=== PATIENT | male | born 1950 | race Caucasian/White ===

== ENCOUNTER 2019-02-09 15:35 | Inpatient (IN) | payer MEDICARE, SELFPAY | END 2019-02-10 11:38 | disposition home or self-care (01) | DRG 309 | PROVIDERS: Admitting Provider Internal Medicine; Family Provider Family Medicine; Visit Provider Internal Medicine | DX: I48.0 Paroxysmal atrial fibrillation (principal); I50.30 Unspecified diastolic (congestive) heart failure; I25.10 Atherosclerotic heart disease of native coronary artery without angina pectoris; E78.5 Hyperlipidemia, unspecified; I11.0 Hypertensive heart disease with heart failure; Z79.82 Long term (current) use of aspirin; Z95.5 Presence of coronary angioplasty implant and graft; G25.81 Restless legs syndrome ==

== ENCOUNTER 2019-02-11 05:56 | Outpatient (RCR) | payer MEDICARE, SELFPAY | END 2019-02-11 23:59 | disposition home or self-care (01) | LOC: ONCMED 05:56 | PROVIDERS: Family Provider Family Medicine; Visit Provider Internal Medicine Hematology & Oncology | DX: E83.110 Hereditary hemochromatosis (principal); I48.91 Unspecified atrial fibrillation; Z79.82 Long term (current) use of aspirin; Z79.01 Long term (current) use of anticoagulants | CPT/HCPCS: 99214 ==

== ENCOUNTER 2019-02-16 07:15 | Inpatient (IN) | payer MEDICARE, SELFPAY ==
--- NOTE | 2019-02-17 | ECG_ITS ---
Measurements Intervals [place] Rate: 101 P: [place]: 0 QRS: 1 QRSD: 86 T: -18 QT: 339 QTc: 441 ATRIAL FIBRILLATION WITH RAPID VENTRICULAR RESPONSE ABNORMAL RHYTHM ECG Compared to ECG 02/16/2019 10:35:42 No significant changes Electronically Signed On 02-17-2019 14:37:59 ROTATING EQUIPMENT SPECIALIST by Cindi Gonzalez M.D. [id number]
[2019-02-17 04:00] VITALS: BP 101/67; PULSE 100; RESP 12
[2019-02-17 04:44] LABS: Alanine Aminotransferase 32 U/L (0-41); Alkaline Phosphatase 76 IU/L (40-130); Anion Gap 16.5 (5-19); Aspartate Amino Transferase 23 U/L (0-40); Blood Urea Nitrogen 20 mg/dL (8-23); Calcium 11.8 mg/Dl (8.8-10.2); Carbon Dioxide 22 mmol/L (22-29); Chloride 104 mmol/L (98-107); Globulin 1.5 g/dL (1.3-4.6); Glomerular Filtration Rate 66.4 mL/min (90-130); Glucose 97 mg/dL (74-106); Potassium 4.5 mmol/L (3.5-5.1); Sodium 138 mmol/L (136-145); Total Bilirubin 0.9 mg/dL (0.15-1.2); Total Protein 6.5 g/dL (6.6-8.7)
[2019-02-17 08:00] VITALS: BP 106/79; PULSE 115; RESP 15; O2SAT 94
[2019-02-17] MEDS: sotalol 80 mg Tablet PO ×2 (08:58→17:06)
[2019-02-17] MEDS: rivaroxaban 10 mg Tablet 20 MG PO (08:58)
[2019-02-17] MEDS: dilTIAZem 30 mg Tablet PO ×2 (08:58→17:03)
[2019-02-17] MEDS: aspirin 81 mg EC Tablet PO (08:58)
--- NOTE | 2019-02-17 09:12 | PM.PN ---
Subjective Subjective: Interval history: Last 24 hours: No acute events. Telemetry was reviewed patient remains in atrial fibrillation with intermittent rapid ventricular response. Patient complains of shortness of breath on minimal exertion denies having any chest discomfort. Vitals/I&O/Wt Last Vital Signs Pulse 100 02/17/19 04:00 Resp 12 02/17/19 04:00 BP 101/67 02/17/19 04:00 Weight last 48 hrs Weight 250 lb Physical Exam Const: COMMON NORMALS: no apparent distress, oriented x3 and alert GENERAL APPEARANCE: cooperative, comfortable, well kempt and well hydrated HENMT: COMMON NORMALS: normocephalic, head/scalp atraumatic, hearing grossly normal bilaterally, external ears normal, external nose normal and moist oral mucous membranes HEAD & SCALP: normocephalic and atraumatic FACE & SINUS: normal facial exam and sinuses nontender; no facial edema NOSE: external nose normal; no epistaxis EXTERNAL EAR: Yes external ears normal MOUTH: lip normal and tongue normal; no drooling and no malodorous breath TEETH & GINGIVA: no caries Eye: COMMON NORMALS: PERRL, EOMs intact bilaterally, conjunctivae normal and no scleral icterus GENERAL EYE: normal appearance of both eyes ALIGNMENT: Yes alignment normal PERIORBITAL: periorbital findings normal EYELID: eyelids normal CONJUNCTIVA: Yes conjunctivae normal SCLERA: sclerae normal PUPIL: Yes PERRL Neck/C-Spine: COMMON NORMALS: no lymphadenopathy, supple and no JVD GENERAL: Yes normal visual inspection, Yes trachea midline and No mass CAROTIDS: Yes normal carotid upstroke CERVICAL SPINE: Yes cervical ROM normal Lymph: LYMPHATIC: no lymphadenopathy noted Chest: COMMONS NORMALS: inspection of chest normal and palpation of chest normal CHEST: Yes symmetrical chest wall rise, No mass, No tenderness, No scars and No rash BREAST/AXILLA INSPECTION: Yes normal inspection of the axillae Resp: COMMON NORMALS: clear to auscultation bilaterally and percussion normal EFFORT & INSPECTION: Yes able to speak in complete sentences, No tachypneic, No respiratory distress, No pursed lip breathing, No labored and No actively coughing AUSCULTATION: clear to auscultation bilaterally, no crackles, no rales, no rhonchi, no wheezes and vesicular breath sounds PERCUSSION: percussion normal Cardio: COMMON NORMALS: no JVD, regular rate, regular rhythm, S1 normal heart sound, S2 normal heart sound and peripheral pulses 2+ throughout PALPATION: normal PMI RATE: regular rate RHYTHM: regular rhythm HEART SOUNDS: S1 normal, S2 normal, no click, no gallops and no murmurs BRUITS: no abdominal aortic bruits, no carotid bruits, no femoral bruits and no renal bruits PERIPHERAL PULSES: pulses 2+ throughout, radial pulses present, femoral pulses present, posterior tibial pulses present and dorsalis pedis pulses present GI: COMMON NORMALS: soft to palpation PALPATION: Yes soft, No tender, No guarding and No rigid PERCUSSION: tympanic to percussion Extremity: GENERAL: No calf tenderness, No clubbing, No cyanosis, Yes edema and No pallor Neuro: COMMON NORMALS: oriented x3, CN's II-XII intact bilaterally and no focal motor deficits SENSORIUM/ORIENTATION: Yes alert Psych: COMMON NORMALS: thought process normal and speech normal APPEARANCE: Yes well kempt SPEECH: Yes normal speech MOOD & AFFECT: Yes euthymic mood THOUGHT PROCESS: normal thought process THOUGHT CONTENT: Yes normal thought content Skin: HAIR: normal NAILS: normal and no clubbing Data Labs: Other Labs: All Labs last 24 hrs except CBC/BMP 02/16/19 02/17/19 11:13 03:25 GFR Calculation 95.8 66.4 L Random Glucose 88 Calcium 11.6 H 11.8 H Magnesium 2.3 Total Bilirubin 0.9 AST 23 ALT 32 Alkaline Phosphata se 76 Total Protein 6.5 L Albumin 5.0 Globulin 1.5 NT-Pro-B Natriuret Pep 316 H A&P Assessment and plan (1) Atrial fibrillation with RVR: Fibrillation with rapid regular response. Patient is symptomatic from it. Been started on sotalol 80 mg twice a day yesterday. Last EKG with atrial fibrillation and heart rate of 101 bpm QT 329/QTc 441 ms. Plan to increase the dose of sotalol from 80 mg in morning and 120 mg in evening depending on how he does today. -Continue low-dose Cardizem and Xarelto. -Plan for cardioversion tomorrow afternoon. Status: Acute Code(s): I48.91 - Unspecified atrial fibrillation (2) Hypertension: Blood pressure has been running low normal. Continue current medications. Status: Acute Code(s): I10 - Essential (primary) hypertension (3) CAD (coronary artery disease): Stable. Continue aspirin and statin. Status: Acute Code(s): I25.10 - Atherosclerotic heart disease of [place] coronary artery without angina pectoris (4) Hyperlipidemia: Continue statin. Status: Acute Code(s): E78.5 - Hyperlipidemia, unspecified Attestations Medical Necessity Statement*: Patient needs hospital stay for symptomatic atrial fibrillation for sotalol therapy monitoring. Coding Level of Care Code Acute Precision Machine Operator for [facility] Fwd Exam Problem Focused Diagnoses Atrial fibrillation with RVR I48.91 Hypertension I10 CAD (coronary artery disease) I25.10 Hyperlipidemia E78.5
[2019-02-17 10:00] VITALS: BMI 36.1
--- NOTE | 2019-02-17 11:00 | ECG_ITS ---
Measurements Intervals [place] Rate: 83 P: [place]: 0 QRS: 6 QRSD: 94 T: -7 QT: 371 QTc: 438 ATRIAL FIBRILLATION ABNORMAL RHYTHM ECG Compared to ECG 02/16/2019 10:35:42 No significant changes Electronically Signed On 02-17-2019 14:34:06 MACHINE SHOP APPRENTICE by Cindi Gonzalez M.D. [id number]
--- NOTE | 2019-02-17 11:55 | PC.CHAP ---
Addendum entered by Jose Mendoza 02/18/19 10:27: Patient visited by finisher brushkong Gu Original Note: Pastoral Care Encounter/Spiritual Assessment Type of Contact [] Declined finisher brush visit [] Patient/Family/Request visit [] Outpatient visit [] Follow-up visit [] Physician referral [] Code/Alert [x] Routine visit [] Staff referral [] Actively dying [] Patient sleeping [] Family support [] [] Out of room [] Palliative care [] [] Receiving care in room [] Pre-surgical visit [] Trauma [] Long length of stay [] ICU visit [] Other: Relational/Emotional Strength [x] Patient feels connected with others/family/visitors/staff [] Distress [] Loneliness/isolation [] Abandonment Spirituality of Patient [x] Person of Candy [] Attends Nondenominational of their Candy [x] Believes in Prayer [] Reads Bible or Advent materials [] There are Spiritual issues to be addressed Pit Furnace Operator Interventions [x] Prayer [x] Active listening [x] Non-anxious presence [x] Spiritual/emotional support [] Crisis/trauma care [] Spiritual counseling [] Bereavement support [] Provided bereavement packet [] Provided Bible/devotional materials [] Provided toy/stuffed animal, coloring book to patient or family member [x] Completed spiritual assessment [] Provided Communion [] Anointing/Star [] Salvation [] Other: Impact on Illness or Injury [] Angry [] Fearful [] Anxious [] Often cries [] Exhaustion [] Unable to work [] Unable to attend jew [] Unable to walk/stand [] Unable to read [] Unable to drive [] Unable to eat/drink [] Unable to sleep [] Unable to be with family [x] Other: frequent visits do to illness Summary Met with same illness Time spent with patient 10 minutes
[2019-02-17 12:00] VITALS: BP 129/93; PULSE 97; RESP 16; TEMP 36.6; O2SAT 94
[2019-02-17 16:00] VITALS: BP 137/93; PULSE 108; RESP 20; TEMP 36.4; O2SAT 94
--- NOTE | 2019-02-17 19:06 | ECG_ITS ---
Measurements Intervals [place] Rate: 104 P: [place]: 0 QRS: 14 QRSD: 88 T: 3 QT: 351 QTc: 464 ATRIAL FIBRILLATION WITH RAPID VENTRICULAR RESPONSE ABNORMAL RHYTHM ECG Compared to ECG 02/17/2019 11:13:57 No significant changes Electronically Signed On 02-18-2019 6:44:42 BUTTON SEWER by Cindi Gonzalez M.D. [id number]
[2019-02-17 19:42] VITALS: BP 134/91; PULSE 109; RESP 23; TEMP 36.5; O2SAT 93
--- NOTE | 2019-02-17 19:47 | PC.NURSE ---
Patient complaints of IV irritating in the right A/C, flushed IV, good blood return, retaped site, and applied new [place]. Call light within reach. Care Continued.
[2019-02-17] MEDS: pramipexole 0.25 mg Tablet PO (20:28)
[2019-02-17] MEDS: atorvastatin 40 mg Tablet PO (20:29)
[2019-02-18] VITALS (25 sets, daily range): BP systolic 90–127; BP diastolic 55–94; PULSE 56–117; RESP 11–27; TEMP 36.3–36.8; O2SAT 91–97
[2019-02-18] MEDS: dilTIAZem 30 mg Tablet PO (03:07)
[2019-02-18 04:35] LABS: Anion Gap 14.3 (5-19); Blood Urea Nitrogen 23 mg/dL (8-23); Calcium 11.9 mg/Dl (8.8-10.2); Carbon Dioxide 21 mmol/L (22-29); Chloride 101 mmol/L (98-107); Glomerular Filtration Rate 74.1 mL/min (90-130); Potassium 4.3 mmol/L (3.5-5.1); Sodium 132 mmol/L (136-145)
[2019-02-18 05:18] LABS: Glucose 104 mg/dL (74-106)
--- NOTE | 2019-02-18 09:48 | PM.PN ---
Subjective Subjective: Interval history: Last 24 hours: No acute events. Telemetry was reviewed patient remains in atrial fibrillation with intermittent rapid ventricular response. Patient complains of shortness of breath . Medications: Reviewed: Yes Vitals/I&O/Wt Last Vital Signs Temp 97.4 F L 02/18/19 09:24 Pulse 107 H 02/18/19 09:24 Resp 16 02/18/19 09:24 BP 125/94 02/18/19 09:24 Pulse Ox 94 02/18/19 09:24 02/17/19 02/18/19 02/18/19 22:59 06:59 14:59 Intake Total 720 / 1200 Balance 720 / 1200 Weight last 48 hrs Weight 250 lb Weight 251 lb 6 oz Weight 250 lb Physical Exam Const: COMMON NORMALS: no apparent distress, oriented x3 and alert GENERAL APPEARANCE: cooperative, comfortable and well kempt HENMT: COMMON NORMALS: external ears normal NOSE: no epistaxis EXTERNAL EAR: Yes external ears normal Eye: COMMON NORMALS: PERRL, EOMs intact bilaterally, conjunctivae normal and no scleral icterus GENERAL EYE: normal appearance of both eyes CONJUNCTIVA: Yes conjunctivae normal SCLERA: sclerae normal PUPIL: Yes PERRL Neck/C-Spine: COMMON NORMALS: supple and no JVD GENERAL: Yes normal visual inspection, Yes trachea midline and No mass CAROTIDS: Yes normal carotid upstroke CERVICAL SPINE: Yes cervical ROM normal Chest: COMMONS NORMALS: inspection of chest normal and palpation of chest normal CHEST: Yes symmetrical chest wall rise, No mass, No tenderness, No scars and No rash Resp: COMMON NORMALS: clear to auscultation bilaterally EFFORT & INSPECTION: Yes able to speak in complete sentences, No pursed lip breathing, No labored and No actively coughing AUSCULTATION: clear to auscultation bilaterally, no crackles, no rales, no rhonchi, no wheezes and vesicular breath sounds Cardio: COMMON NORMALS: no JVD and peripheral pulses 2+ throughout PALPATION: normal PMI RATE: other (Irregularly irregular) HEART SOUNDS: no click, no gallops, no murmurs and other (S1 and S2 of variable intensity) PERIPHERAL PULSES: pulses 2+ throughout, posterior tibial pulses present and dorsalis pedis pulses present Extremity: GENERAL: No calf tenderness, No clubbing, No cyanosis, Yes edema and No pallor Neuro: COMMON NORMALS: oriented x3 SENSORIUM/ORIENTATION: Yes alert Psych: COMMON NORMALS: thought process normal and speech normal APPEARANCE: Yes well kempt SPEECH: Yes normal speech MOOD & AFFECT: Yes euthymic mood THOUGHT PROCESS: normal thought process THOUGHT CONTENT: Yes normal thought content A&P Assessment and plan (1) Atrial fibrillation with RVR: Fibrillation with rapid regular response. Patient is symptomatic from it. He was started on sotalol 80 mg twice a day on . -He underwent successful cardioversion methodist of normal sinus rhythm after left atrial and left atrial appendage thrombus was ruled out by FILIPE. -Continue Xarelto and sotalol. -Possible discharge tomorrow. Status: Acute Code(s): I48.91 - Unspecified atrial fibrillation (2) Dyspnea: Patient received Lasix 20 mg IV x1 this morning. Pt. slightly volume overloaded in setting of A. fib with RVR and sotalol therapy -Possibly start on Lasix 20 mg p.o. starting tomorrow. Status: Acute Code(s): R06.00 - Dyspnea, unspecified (3) Hypertension: Blood pressure has been running low normal. Continue current medications. Status: Acute Code(s): I10 - Essential (primary) hypertension (4) CAD (coronary artery disease): Stable. Continue aspirin and statin. Status: Acute Code(s): I25.10 - Atherosclerotic heart disease of [place] coronary artery without angina pectoris (5) Hyperlipidemia: Continue statin. Status: Acute Code(s): E78.5 - Hyperlipidemia, unspecified Attestations Medical Necessity Statement*: Patient needs to stay in the hospital because of symptomatic atrial fibrillation and for sotalol therapy monitoring. Time Spent in Patient Care: Greater than 35 minutes (>than 50% of time spent in counselling and/or direct pt care on unit). Coding Level of Care Code Acute Learning Solutions Specialist for Sergio Vic[facility] Diagnoses Atrial fibrillation with RVR I48.91 Dyspnea R06.00 Hypertension I10 CAD (coronary artery disease) I25.10 Hyperlipidemia E78.5
[2019-02-18] MEDS: aspirin 81 mg EC Tablet PO (09:58)
[2019-02-18] MEDS: sotalol 80 mg Tablet PO ×2 (09:58→17:21)
[2019-02-18] MEDS: rivaroxaban 10 mg Tablet 20 MG PO (09:58)
[2019-02-18] MEDS: FUROsemide 10 mg/mL SDV 2mL 20 MG IVP (09:58)
--- NOTE | 2019-02-18 10:32 | ANES.PREANES ---
Pre-Anesthetic Assessment Pre-Anesthetic Assessment: Height/Weight: Height 1.78 m Weight 113.398 kg Temp Pulse Resp BP Pulse Ox 97.4 F L 107 H 16 125/94 94 02/18/19 09:24 02/18/19 09:24 02/18/19 09:24 02/18/19 09:24 02/18/19 09:24 Preop Diagnosis: aFIB WITH rvr Proposed Procedure: Operation Date: 02/18/19 11:00 Proposed Procedures p FILIPE (Transesophageal Echocardiogram)(Not Applicable) - Cindi Gonzalez MD s Cardioversion(Not Applicable) - Cindi Gonzalez MD Was Beta Kath taken within 24 hours: N/A Last intake: 0 food/drink Social: Social History: No alcohol and No tobacco Exam: Pre-Anes Outpt Exam: alert, oriented x 3 and clear to auscultation bilaterally Additional Exam Findings (including area of procedure): Irregular rhythm Airway: Submandibular: WNL Cervical ROM: WNL MP: 2 Additional comments: full Pulmonary: Pulmonary: None reported CV/HEM: CV/HEM: Afib, CAD, HTN and Palp Comments: 2011 denies any CP recently. Some SOB and feels heart racing : : None reported Hepatic: Hepatic: None reported GI: GI: GERD Comments: occasional Musc/skel: Musc/skel: None reported Neuropsych: Neuropsych: None reported Anesthetic Plan: ASA status: III Anesthesia: MAC Risk of > 500 ml blood loss (7ml/kg in children): No Meds/Allergies Current Medications: Current Medications Generic Name Dose Route Start Last Admin Trade Name Freq PRN Reason Stop Dose Admin Aspirin 81 mg 02/17/19 09:00 02/18/19 09:58 Aspirin Ec PO 81 mg DAILY ADRIENNE Administration Atorvastatin Calci um 40 mg 02/17/19 21:00 02/17/19 20:29 Lipitor PO 40 mg BEDTIME ADRIENNE Administration Diltiazem HCl 30 mg 02/17/19 00:00 02/18/19 03:07 Cardizem PO 30 mg TID PRN Administration HR> 120 BPM Diltiazem HCl 30 mg 02/17/19 09:00 02/17/19 17:03 Cardizem PO 30 mg BID ADRIENNE Administration Pramipexole Dihydr ochloride 0.25 mg 02/17/19 21:00 02/17/19 20:28 Mirapex PO 0.25 mg BEDTIME ADRIENNE Administration Sotalol HCl 80 mg 02/17/19 09:00 02/18/19 09:58 Betapace PO 80 mg BID ADRIENNE Administration PFSH Anesthesia PFSH: Medical History (Updated 02/17/19 @ 09:18 by Cindi Gonzalez MD) CAD (coronary artery disease) (Acute) Hyperlipidemia (Acute) Hypertension (Acute) Restless legs syndrome (RLS) (Acute) Social History (Updated 02/16/19 @ 16:11 by Maya Xiao) Smoking and tobacco status: never smoked Data Anesthesia Labs: Other Labs: Laboratory Results - last 48 hr 02/16/19 02/17/19 02/18/19 11:13 03:25 03:08 Sodium 138 138 132 L Potassium 4.7 4.5 4.3 Chloride 104 104 101 Carbon Dioxide 21 L 22 21 L Anion Gap 17.7 16.5 14.3 BUN 14 20 23 Creatinine 0.8 1.1 1.0 GFR Calculation 95.8 66.4 L 74.1 L Glucose 97 104 Random Glucose 88 Calcium 11.6 H 11.8 H 11.9 H Magnesium 2.3 Total Bilirubin 0.9 AST 23 ALT 32 Alkaline Phosphata se 76 Total Protein 6.5 L Albumin 5.0 Globulin 1.5 NT-Pro-B Natriuret Pep 316 H Cardiac Studies: No Data to Display
--- NOTE | 2019-02-18 11:00 | USCV_ITS ---
Lavon Boone Age: 68 Gender: M : 1950 Exam Date: 02/18/2019 10:55 Ordering Phys: Cindi Gonzalez MD ([email or web address]) Technologist: Tanisha Gibbons Exam Location: [facility] – [place] Indication: AFIB WITHPOST CARDIO BP: / HR: Rhythm: Sinus Technical Quality: Good MEASUREMENTS (Male / Female) Normal Values Medications As per anesthesia. Complications No procedural complications. Proc. Components Multiple images were obtained at mid esophageal and gastric levels. FINDINGS Left Ventricle Upper normal left ventricular size. Low normal left ventricular systolic function. Left ventricular ejection fraction is estimated at 50-55%. No regional wall motion abnormalities. Right Ventricle Normal right ventricular size and systolic function. Right Atrium Mildly increased right atrial size. Left Atrium Mildly increased left atrial size. Smoke noted in left atrium. LA Appendage Normal left atrial appendage. Smoke noted in left atrial appendage. IA Septum Normal interatrial septum. No patent foramen ovale. No evidence for an atrial septal defect. Mitral Valve Structurally normal mitral valve. No mitral valve stenosis. Mild mitral valve regurgitation. Aortic Valve Structurally normal trileaflet aortic valve. No aortic valve stenosis. No aortic valve regurgitation. Tricuspid Valve Structurally normal tricuspid valve. No tricuspid valve regurgitation. Mild tricuspid valve regurgitation. Pulmonic Valve Structurally normal pulmonic valve. No pulmonary valve stenosis. Trace pulmonary valve regurgitation. Pericardium No pericardial effusion. Aorta Normal size aortic root and proximal ascending aorta. No aortic aneurysm, dilation or dissection. 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 CONCLUSIONS 1. Upper normal left ventricular size. Low normal left ventricular systolic function. Left ventricular ejection fraction is estimated at 50-55%. No regional wall motion abnormalities. 2. Normal right ventricular size and systolic function. 3. Mild biatrial enlargement. 4. Mild mitral and tricuspid valve regurgitation. 5. No left atrial or left atrial appendage thrombus. 6. 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 Cindi Gonzalez MD (Electronically Signed) Final Date: 19 February 2019 14:35 S
--- NOTE | 2019-02-18 12:01 | PC.NURSE ---
11:37 DR Gonzalez at bed side for planned procedure Cardioversion with FILIPE 11:39 Time out performed patient stated name, date of and procedure verbalized 11:40 anesthesia administered by CHARMAINE Vera 11:42 Patient confirmed asleep under anesthesia By DIGITAL LEARNING PLATFORMS MANAGER 11:[address] Gonzalez assisted by Ultra sound Tech Tanisha 11:47 Bubbles introduced via IV By Eduardo Tran RN 11:51 FILIPE complete OK to proceed with cardioversion per Dr. Gonzalez 11:52 Defibrillator set to sync and charged to 120 Joules 11:53 Shock delivered -normal sinus rhythm noted by Dr. Gonzalez, HR 61 12:15-12:20 patient recovered by patient care nurse Eduardo Tran RN and CHARMAINE Vera
--- NOTE | 2019-02-18 12:20 | P.PCN_ITS ---
Procedure/Consent Time out: Time Out Performed: Yes Consent: Consent for Procedure: Consent obtained from patient, Risks & Benefits reviewed and Agrees to proceed with procedure Procedure Narrative: FILIPE Procedure note Indication: Symptomatic atrial fibrillation Sedation: Propofol by anesthesia Procedure was explained to the patient in detail and informed consent was obtained. After achieving adequate sedation, the probe was inserted on first attempt. No blood on the probe post procedure. Prelim report: No left atrial or left atrial appendage mass or thrombus visualized. No ASD or PFO identified. Full report to follow. Cardioversion procedure note. Indication: Symptomatic atrial fibrillation Anticoagulation: Xarelto Sedation: Propofol by anesthesia After ruling out left atrial or left atrial appendage thrombus, and was made to proceed with cardioversion. He received 120 J of synchronized biphasic shock ?1 with confucianist of normal sinus rhythm. Patient tolerated the procedure well. Recovery: In CSU Patient tolerated the procedure well. Acute Procedures Epistaxis Control: Time out performed: Yes
--- NOTE | 2019-02-18 12:39 | ECG_ITS ---
Measurements Intervals [place] Rate: 54 P: 48 [place]: 224 QRS: 11 QRSD: 90 T: -8 QT: 452 QTc: 432 SINUS BRADYCARDIA WITH SINUS ARRHYTHMIA WITH FIRST DEGREE AV BLOCK Compared to ECG 02/18/2019 00:40:24 First degree AV block now present Atrial fibrillation no longer present Electronically Signed On 02-18-2019 17:10:58 TAIL WORKER by Cindi Gonzalez M.D. [id number]
[2019-02-18] MEDS: atorvastatin 40 mg Tablet PO (20:40)
[2019-02-18] MEDS: pramipexole 0.25 mg Tablet PO (20:40)
[2019-02-18 21:48] LABS: Alanine Aminotransferase 50 U/L (0-41); Albumin Level 4.7 g/dL (3.5-5.2); Alkaline Phosphatase 93 IU/L (40-130); Aspartate Amino Transferase 43 U/L (0-40); Magnesium 2.7 mg/dL (1.7-2.3); NT Pro B Type Natriuretic Pept 336 pg/mL (0-125); Total Bilirubin 0.7 mg/dL (0.15-1.2); Total Protein 7.7 g/dL (6.6-8.7)
[2019-02-19] VITALS: BP 103/55; PULSE 65; RESP 23
[2019-02-19 04:00] VITALS: BP 103/70; PULSE 56; PULSE 723; RESP 23; RESP 26; TEMP 37; O2SAT 92
[2019-02-19 07:51] VITALS: BP 111/73; PULSE 62; PULSE 65; RESP 17; TEMP 36.8; O2SAT 96
[2019-02-19 08:00] VITALS: PULSE 73; RESP 26
[2019-02-19] MEDS: rivaroxaban 10 mg Tablet 20 MG PO (08:07)
[2019-02-19] MEDS: sotalol 80 mg Tablet PO (08:07)
[2019-02-19] MEDS: aspirin 81 mg EC Tablet PO (08:07)
[2019-02-19] MEDS: FUROsemide 20 mg Tablet PO (08:08)
--- NOTE | 2019-02-19 09:56 | PC.SOCIAL ---
IMM Update Pg 2 of IMM given and explained to patient who voiced understanding. Signed/dated/timed and placed in chart. Copy provided to patient.
--- NOTE | 2019-02-19 10:27 | PM.DCS ---
Discharge Providers Date of Admission: 02/16/19 07:15 Date of Discharge: 02/19/19 Attending Provider at Admission: Cindi Gonzalez Attending Provider at Discharge: Cindi Gonzalez Primary Care Provider: Elizabeth Xiao Diagnoses at Discharge Discharge Diagnosis (1) Atrial fibrillation with RVR: Status: Acute Problem details: Patient underwent transesophageal echocardiogram and cardioversion x1 yesterday with voodoo of sinus rhythm. Telemetry was reviewed overnight and patient remained in sinus rhythm or sinus bradycardia overnight. -Plan to continue with sotalol 80 mg twice a day and Xarelto. -EKG this morning showed sinus bradycardia with sinus arrhythmia and first-degree AV block. Minimal voltage criteria for LVH. DC interval 215 ms, QRS duration 88 ms, QT/QTc 416/408 ms. (2) Dyspnea: Status: Acute Problem details: -Dyspnea improved since cardioversion and after Lasix yesterday. -Continue Lasix 20 mg daily. (3) Hypertension: Status: Acute Problem details: Blood pressure well controlled. Continue current medications. (4) CAD (coronary artery disease): Status: Acute Problem details: Stable. Continue aspirin and statin. (5) Hyperlipidemia: Status: Acute Problem details: Continue statin. Reason for Visit Reason for Visit: Reason For Visit: Afib Hospital Course Hospital Course: Patient was hospitalized for symptomatic atrial fibrillation for sotalol initiation and monitoring. Patient tolerated sotalol fairly. He developed dyspnea with mild volume overload that has responded well to Lasix. He was successfully cardioverted yesterday and states that he feels well today. Physical Exam Const: COMMON NORMALS: no apparent distress, oriented x3 and alert GENERAL APPEARANCE: cooperative, comfortable, well kempt and well hydrated HENMT: COMMON NORMALS: hearing grossly normal bilaterally, external ears normal and moist oral mucous membranes FACE & SINUS: normal facial exam EXTERNAL EAR: Yes external ears normal Eye: COMMON NORMALS: EOMs intact bilaterally and no scleral icterus GENERAL EYE: normal appearance of both eyes Neck/C-Spine: COMMON NORMALS: no lymphadenopathy, supple and no JVD GENERAL: Yes normal visual inspection and Yes trachea midline Chest: COMMONS NORMALS: inspection of chest normal and palpation of chest normal CHEST: Yes symmetrical chest wall rise and No tenderness Resp: COMMON NORMALS: clear to auscultation bilaterally EFFORT & INSPECTION: Yes able to speak in complete sentences, No tachypneic, No respiratory distress, No pursed lip breathing, No labored and No actively coughing AUSCULTATION: clear to auscultation bilaterally, no crackles, no rales, no rhonchi and no wheezes Cardio: COMMON NORMALS: no JVD, regular rate, regular rhythm, S1 normal heart sound, S2 normal heart sound and peripheral pulses 2+ throughout PALPATION: normal PMI RATE: regular rate RHYTHM: regular rhythm HEART SOUNDS: S1 normal, S2 normal, no click, no gallops and no murmurs BRUITS: no carotid bruits PERIPHERAL PULSES: pulses 2+ throughout, radial pulses present, posterior tibial pulses present and dorsalis pedis pulses present Extremity: GENERAL: No clubbing, No cyanosis, Yes edema and No pallor Neuro: COMMON NORMALS: oriented x3, CN's II-XII intact bilaterally and no focal motor deficits SENSORIUM/ORIENTATION: Yes alert Psych: COMMON NORMALS: thought process normal and speech normal APPEARANCE: Yes well kempt SPEECH: Yes normal speech MOOD & AFFECT: Yes euthymic mood THOUGHT PROCESS: normal thought process THOUGHT CONTENT: Yes normal thought content Discharge Data Data Completed and Pending: Pending at discharge Category Date Time Status CV echo transesop hageal [address] Routi ne Ultrasound 02/18/19 11:00 Taken Labs from last 24 hours 02/18/19 03:08 Magnesium 2.7 H Total Bilirubin 0.7 Direct Bilirubin 0.20 AST 43 H ALT 50 H Alkaline Phosphata se 93 NT-Pro-B Natriuret Pep 336 H Total Protein 7.7 Albumin 4.7 Globulin 3.0 Lab Results 02/16/19 02/17/19 02/18/19 Range/Units 11:13 03:25 03:08 Sodium 138 138 132 L (136-145) mmol/L Potassium 4.7 4.5 4.3 (3.5-5.1) mmol/L Chloride 104 104 101 (98-107) mmol/L Carbon Dioxide 21 L 22 21 L (22-29) mmol/L Anion Gap 17.7 16.5 14.3 (5-19) BUN 14 20 23 (8.0-23) mg/dL Creatinine 0.8 1.1 1.0 (0.7-1.2) mg/dL GFR Calculation 95.8 66.4 L 74.1 L (90-130) mL/min Glucose 97 104 (74-106) mg/dL Random Glucose 88 (65-115) mg/dl Calcium 11.6 H 11.8 H 11.9 H (8.8-10.2) mg/dL Magnesium 2.3 (1.7-2.3) mg/dL Total Bilirubin 0.9 (0.15-1.2) mg/dL Direct Bilirubin (0.00-0.30) mg/d L AST 23 (0-40) U/L ALT 32 (0-41) U/L Alkaline Phosphata se 76 (40-130) IU/L Total Protein 6.5 L (6.6-8.7) g/dL Albumin 5.0 (3.5-5.2) g/dL Globulin 1.5 (1.3-4.6) g/dL NT-Pro-B Natriuret Pep 316 H (0-125) pg/mL 02/18/19 Range/Units 03:08 Sodium (136-145) mmol/L Potassium (3.5-5.1) mmol/L Chloride (98-107) mmol/L Carbon Dioxide (22-29) mmol/L Anion Gap (5-19) BUN (8.0-23) mg/dL Creatinine (0.7-1.2) mg/dL GFR Calculation (90-130) mL/min Glucose (74-106) mg/dL Random Glucose (65-115) mg/dl Calcium (8.8-10.2) mg/dL Magnesium 2.7 H (1.7-2.3) mg/dL Total Bilirubin 0.7 (0.15-1.2) mg/dL Direct Bilirubin 0.20 (0.00-0.30) mg/d L AST 43 H (0-40) U/L ALT 50 H (0-41) U/L Alkaline Phosphata se 93 (40-130) IU/L Total Protein 7.7 (6.6-8.7) g/dL Albumin 4.7 (3.5-5.2) g/dL Globulin 3.0 (1.3-4.6) g/dL NT-Pro-B Natriuret Pep 336 H (0-125) pg/mL Addt'l Data from Hospital Stay: Intake and Output 02/18/19 02/19/19 02/19/19 22:59 06:59 14:59 Intake Total 240 / 360 360 / 360 Balance 240 / 60 360 / 360 Intake: Oral 240 / 360 360 / 360 Other: # Voids 1 1 # Bowel Movement s 1 1 Vitals: Last Vital Signs Temp 98.2 F 02/19/19 07:51 Pulse 73 02/19/19 08:00 Resp 26 H 02/19/19 08:00 BP 111/73 02/19/19 07:51 Pulse Ox 96 02/19/19 07:51 Discharge Plan Discharge Patient Disposition: Home, Self-Care Condition: Stable Prescriptions: New sotalol 80 mg Tablet 80 mg PO BID 30 Days Qty: 60 RF: 3 aspirin 81 mg Tablet,Delayed Release (Dr/Ec) 81 mg PO DAILY 30 Days Qty: 30 RF: 0 furosemide 20 mg Tablet 20 mg PO DAILY@0800 30 Days Qty: 30 RF: 3 rivaroxaban 20 mg tablet 20 mg PO DAILY 30 Days Qty: 30 RF: 3 Continued simvastatin 40 mg tablet 40 mg PO BEDTIME RF: 0 ropinirole 0.25 mg tablet 0.5 mg PO BEDTIME RF: 0 Discontinued cetirizine 10 mg tablet 10 mg PO BEDTIME RF: 0 diltiazem HCl 240 mg capsule,extended release 24hr 240 mg PO DAILY RF: 0 telmisartan 40 mg tablet 40 mg PO DAILY RF: 0 furosemide 20 mg tablet 10 mg PO DAILY PRN (Reason: Shortness Of Breath) RF: 0 diltiazem HCl [DILT-XR] 180 mg capsule,ext.rel 24h degradable 180 mg PO DAILY RF: 0 Eliquis 5 mg tablet 5 mg PO BID RF: 0 Discharge Orders: Discharge Order (Routine); Ordered 02/19/19 Ordered By: Cindi Gonzalez Other Ambulatory Orders: Basic Metabolic Panel (Routine) Timeframe: 1 Week Facility: [facility] - Location: Lab - Main Lab Ordered By: Cindi Gonzalez ECG nonstress test (Routine) Timeframe: 1 Week Facility: [facility] - Location: Respiratory Therapy Ordered By: Cindi Gonzalez Referrals: Cindi Gonzalez MD [Physician] - (You have a cardiology followup with Dr. Gonzalez at [facility] on April 05 at 1:30pm. Any questions or appointment changes, please call them at [phone]) Discharge Diet: Cardiac Discharge Activity: May return to work/school without restrictions Patient Instructions: Aspirin (By mouth), Sotalol (By mouth), Rivaroxaban (By mouth), Hypertension, Coronary Artery Disease (DC), Atrial Fibrillation (DC), Hyperlipidemia (DC) Activity Restrictions/Additional Instructions: BP/HR log x 2 weeks. -Follow up for EKG and labs in 1 week. Discharge Date/Time: 02/19/19 11:45 Discharge Attestations Time Spent in Discharge Care*: greater than 30 min Specific Discharge Activities: Specific discharge activities: educating patient, educating and/or supporting family/caregiver, documenting/other paperwork and evaluating patient/reviewing data Status at Discharge: Cognitive status at discharge: cognitively intact, Behavioral status at discharge: cooperative, Functional status at discharge: independent ambulation Overall status at discharge: patient is progressing back to baseline Quality Metrics Clinical Quality Measures During this hospital stay, did patient experience: None Coding Level of Care Code Established Pt Acute Utilities Equipment Repairer for Chg Fwd Patient Type Established Exam Problem Focused Medical Decision Making Low Complexity Diagnoses Atrial fibrillation with RVR I48.91 Dyspnea R06.00 Hypertension I10 CAD (coronary artery disease) I25.10 Hyperlipidemia E78.5 Time Spent (min) 45
[2019-02-19 10:57] VITALS: BP 111/73; PULSE 73; RESP 26; O2SAT 94
--- NOTE | 2019-02-19 11:24 | ECG_ITS ---
Measurements Intervals [place] Rate: 57 P: 63 CO: 215 QRS: 4 QRSD: 88 T: 2 QT: 416 QTc: 408 SINUS BRADYCARDIA WITH SINUS ARRHYTHMIA WITH FIRST DEGREE AV BLOCK MINIMAL VOLTAGE CRITERIA FOR LVH, CONSIDER NORMAL VARIANT [MEETS CRITERIA IN ONE O OF: R(aVL), S(V1), R(V5), R(V5/V6)+S(V1)] Compared to ECG 02/18/2019 13:41:28 No significant changes Electronically Signed On 02-19-2019 15:08:33 SHEARING SHED HAND by Margarito Moody M.D. [id number]
== END 2019-02-19 11:45 | disposition home or self-care (01) | DRG 310 ==
PROVIDERS: Admitting Provider Internal Medicine Cardiovascular Disease; Family Provider Family Medicine; PCP Family Medicine; Referring Provider Internal Medicine Cardiovascular Disease; Visit Provider Internal Medicine Cardiovascular Disease
DX: I48.91 Unspecified atrial fibrillation (principal); I10 Essential (primary) hypertension; I25.10 Atherosclerotic heart disease of native coronary artery without angina pectoris; E78.5 Hyperlipidemia, unspecified; E83.119 Hemochromatosis, unspecified; E66.9 Obesity, unspecified; Z68.35 Body mass index [BMI] 35.0-35.9, adult; I44.0 Atrioventricular block, first degree
CPT/HCPCS: 36415; 71045; 71275; 80048; 80076; 83735; 83880; 84484; 85025; 93005; 93312; 93320; 93325; 96374; 99214; 99221; 99284; J1940; J2001; J2250; J2704; J3490; Q9967

== ENCOUNTER → 2019-02-25 15:10 | Outpatient (BNVA) | payer MEDICARE, SELFPAY | PROVIDERS: Family Provider Family Medicine; PCP Family Medicine; Visit Provider Internal Medicine Cardiovascular Disease | DX: I48.91 Unspecified atrial fibrillation (principal) | CPT/HCPCS: 36415; 80048 ==

== ENCOUNTER → 2019-03-08 15:58 | Outpatient (BNVA) | payer MEDICARE, SELFPAY | PROVIDERS: Family Provider Family Medicine; PCP Family Medicine; Referring Provider Family Medicine; Visit Provider Family Medicine | DX: Z01.89 Encounter for other specified special examinations (principal) | CPT/HCPCS: 36415; 80053; 83880; 84443 ==

== ENCOUNTER → 2019-03-15 09:21 | Outpatient (BNVA) | payer MEDICARE, SELFPAY | PROVIDERS: Family Provider Family Medicine; PCP Family Medicine; Visit Provider Internal Medicine Hematology & Oncology | DX: E83.119 Hemochromatosis, unspecified (principal) | CPT/HCPCS: 82728; 85007; 85027 ==

== ENCOUNTER 2019-03-18 09:38 | Outpatient (CLI) | payer MEDICARE, SELFPAY | END 2019-03-18 09:39 | disposition home or self-care (01) | LOC: ONCMED 09:38 | PROVIDERS: Family Provider Family Medicine; PCP Family Medicine; Visit Provider Internal Medicine Hematology & Oncology | DX: E83.110 Hereditary hemochromatosis (principal); I48.91 Unspecified atrial fibrillation; Z79.82 Long term (current) use of aspirin; Z79.01 Long term (current) use of anticoagulants | CPT/HCPCS: G0463 ==

== ENCOUNTER 2019-04-02 10:31 | Day surgery (SDC) | payer MEDICARE, SELFPAY ==
[2019-04-02 11:01] VITALS: BP 165/108; PULSE 79; RESP 18; TEMP 36.7; O2SAT 96; BMI 35.2
--- NOTE | 2019-04-02 11:05 | ANES.PREANE2 ---
Pre-Anesthetic Assessment Pre-Anesthetic Assessment: Height/Weight: Height 1.78 m Preop Diagnosis: aFIB WITH rvr Proposed Procedure: Operation Date: 04/02/19 12:00 Proposed Procedures p Cardioversion(Not Applicable) - Cindi Gonzalez MD Familial anesthetic complications: none Was Beta Kath taken within 24 hours: N/A Last Intake: 23:00 Exam: Pre-Anes Outpt Exam: alert, oriented x 3 and clear to auscultation bilaterally Airway: Submandibular: WNL Cervical ROM: WNL MP: 2 History/ROS: No significant history except as noted Pulmonary: Pulmonary: [place] CV/HEM: CV/HEM: Afib, Arrythmia, CAD, HTN and Palp : : None reported Hepatic: Hepatic: None reported GI: GI: None reported Metabolic: Metabolic: Hyperlipidemia Comments: hemochromatosis (treated) Musc/skel: Musc/skel: None reported Neuropsych: Neuropsych: None reported Anesthetic Plan: ASA status: 3 Anesthesia: Anesthesia Evaluation and MAC Risk of > 500 ml blood loss (7ml/kg in children): No PFSH Anesthesia PFSH: Social History Smoking and tobacco status: never smoked Data Anesthesia Cardiac Studies: No Data to Display
--- NOTE | 2019-04-02 11:10 | ECG_ITS ---
Measurements Intervals [place] Rate: 53 P: 65 GA: 247 QRS: 1 QRSD: 96 T: -6 QT: 472 QTc: 446 SINUS BRADYCARDIA WITH SINUS ARRHYTHMIA WITH FIRST DEGREE AV BLOCK MINIMAL VOLTAGE CRITERIA FOR LVH, CONSIDER NORMAL VARIANT [MEETS CRITERIA IN ONE OF: OF: R(aVL), S(V1), R(V5), R(V5/V6)+S(V1)] Compared to ECG 02/19/2019 11:31:45 No significant changes Electronically Signed On 04-02-2019 20:51:56 SCISSORS GRINDER by Margarito Moody M.D. [id number]
[2019-04-02] MEDS: sodium chloride 0.9% 1,000 ML 30 ML IV (11:47)
--- NOTE | 2019-04-02 12:45 | ECG_ITS ---
Measurements Intervals [place] Rate: 103 P: [place]: 0 QRS: 18 QRSD: 94 T: -34 QT: 362 QTc: 475 ATRIAL FIBRILLATION WITH RAPID VENTRICULAR RESPONSE ABNORMAL RHYTHM ECG INTERPRETATION BASED ON A DEFAULT AGE OF 40 YEARS Compared to ECG 02/19/2019 11:31:45 Sinus bradycardia no longer present Sinus arrhythmia no longer present First degree AV block no longer present Electronically Signed On 04-02-2019 20:47:52 SECURITY FIELD SUPERVISOR by Margarito Moody M.D. [id number]
--- NOTE | 2019-04-02 12:48 | P.HP_ITS ---
Providers/Chief Complaint Primary Care Provider: Elizabeth Xiao MD Chief Complaint: cardioversion History of Present Illness Lavon Boone is a 68 year old male with PMHx of paroxysmal atrial fibrillation. He was maintaining SR on Multaq but was unable to afford it and was switched to sotalol. He failed sotaolol and was started oupatient on Amiodarone. He transiently converted to NSR but went back in atrial fibrillation. He is coming in today electively for cardioversion. Review of Systems Const: Reports: fatigue; Denies: fever or chills ENMT: Denies: throat pain, nasal congestion or nose bleeds Card: Reports: shortness of breath on exertion; Denies: chest pain, shortness of breath when lying down or leg pain with exertion Resp: Reports: shortness of breath; Denies: productive cough, non-productive cough or chest congestion GI: Denies: nausea, vomiting, difficulty swallowing or blood in stool Musc: Denies: back pain, extremity pain or extremity swelling Neuro: Denies: headache, weakness in extremities or lack of coordination Psych: Denies: anxiety or depression Bashir/Lymph: Reports: easy bruising; Denies: petechiae or purpura All/Imm: Denies: throat swelling or tongue swelling Medications/Allergies Home Medications Medication Instructions Recorded Confirmed Last Taken Type aspirin 81 mg PO DAILY 04/02/19 04/02/19 04/01/19 05:00 History pramipexole 0.25 mg PO DAILY 04/02/19 04/02/19 Unknown History Allergies Allergy/AdvReac Type Severity Reaction Status Date / Time hydrocodone Allergy ADR-Abdominal Verified 02/16/19 13:42 Pain meperidine [From Demerol] Allergy Unknown Verified 02/16/19 13:42 PFSH Acute PFSH: Social History Smoking and tobacco status: never smoked Vitals/I&O/Wt Last Vital Signs Temp 98.1 F 04/02/19 11:01 Pulse 79 04/02/19 11:01 Resp 18 04/02/19 11:01 BP 165/108 04/02/19 11:01 Pulse Ox 96 04/02/19 11:01 Weight last 48 hrs Weight 245 lb Physical Exam Const: COMMON NORMALS: no apparent distress, oriented x3 and alert GENERAL APPEARANCE: cooperative, comfortable, well kempt and well hydrated HENMT: COMMON NORMALS: hearing grossly normal bilaterally, external ears normal and moist oral mucous membranes FACE & SINUS: normal facial exam Eye: GENERAL EYE: normal appearance of both eyes Neck/C-Spine: COMMON NORMALS: no JVD GENERAL: Yes normal visual inspection CAROTIDS: Yes normal carotid upstroke Chest: COMMONS NORMALS: inspection of chest normal Resp: COMMON NORMALS: clear to auscultation bilaterally EFFORT & INSPECTION: Yes able to speak in complete sentences and No tachypneic AUSCULTATION: no crackles, no rales, no rhonchi and no wheezes Cardio: COMMON NORMALS: no JVD, regular rate, regular rhythm, S1 normal heart sound, S2 normal heart sound and peripheral pulses 2+ throughout PALPATION: normal PMI HEART SOUNDS: no click, no gallops and no murmurs BRUITS: no carotid bruits PERIPHERAL PULSES: pulses 2+ throughout, radial pulses present, posterior tibial pulses present and dorsalis pedis pulses present Extremity: GENERAL: No cyanosis and No pallor Neuro: COMMON NORMALS: oriented x3, CN's II-XII intact bilaterally and no focal motor deficits SENSORIUM/ORIENTATION: Yes alert Psych: COMMON NORMALS: thought process normal and speech normal APPEARANCE: Yes well kempt SPEECH: Yes normal speech THOUGHT PROCESS: normal thought process A&P Assessment and plan (1) Atrial fibrillation with RVR: Patient admitted for transesophageal echocardiogram and elective cardioversion. He was successfully cardioverted with temple of sinus rhythm/sinus bradycardia. Plan to continue current medications without any changes. He is going to maintain a log of blood pressure and heart rate. -Follow-up as scheduled in [facility]. Status: Acute Code(s): I48.91 - Unspecified atrial fibrillation (2) Hypertension: Blood pressure well controlled. Continue current medications. Status: Acute Code(s): I10 - Essential (primary) hypertension (3) Hyperlipidemia: Continue statin. Status: Acute Code(s): E78.5 - Hyperlipidemia, unspecified (4) CAD (coronary artery disease): Stable. Continue aspirin and statin. Status: Acute Code(s): I25.10 - Atherosclerotic heart disease of [place] coronary artery without angina pectoris Procedures Time out/Consent Time Out Performed: Yes Consent for Procedure: Consent obtained from patient Additional information: Cardioversion procedure note. Is more Indication: Symptomatic atrial fibrillation Anticoagulation: Xarelto Sedation: Propofol by anesthesia Procedure was explained to the patient in detail. Risks and benefits of the procedures were discussed. Informed consent was obtained. After time out was called patient received sedation. Pads were placed anteroposteriorly. He received 150 J of synchronized biphasic shock but stayed in atrial fibrillation. He received another 200 J of synchronized biphasic shock with temple of normal sinus rhythm. Patient tolerated the procedure well. Recovery: in unit Disposition: Patient to be discharged later today on current medications. Attestations Medical Necessity Statement*: Patient for elective cardioversion with plan to discharge later today. Time Spent in Patient Care: Greater than 35 minutes (>than 50% of time spent in counselling and/or direct pt care on unit) . Coding Level of Care Code Acute Surface Mount Technology Operator for Jeraldg Fwd Exam Problem Focused Diagnoses Atrial fibrillation with RVR I48.91 Hypertension I10 Hyperlipidemia E78.5 CAD (coronary artery disease) I25.10
[2019-04-02 13:01] VITALS: BP 133/79; PULSE 53; RESP 16; TEMP 36.7; O2SAT 96
[2019-04-02 13:15] VITALS: BP 134/84; PULSE 50; RESP 16; TEMP 36.7; O2SAT 97
[2019-04-02 13:41] VITALS: BP 140/93; PULSE 51; RESP 16; TEMP 36.7; O2SAT 98
== END 2019-04-02 13:58 | disposition home or self-care (01) ==
PROVIDERS: Family Provider Family Medicine; PCP Family Medicine; Visit Provider Internal Medicine Cardiovascular Disease
PROC: 5A2204Z Restoration of Cardiac Rhythm, Single (ICD-10-PCS; principal; 2019-04-02 12:00)
DX: I48.91 Unspecified atrial fibrillation (principal); I10 Essential (primary) hypertension; E78.5 Hyperlipidemia, unspecified; I25.10 Atherosclerotic heart disease of native coronary artery without angina pectoris
CPT/HCPCS: 12345; 36415; 92960; 93005; J2704; J7030

== ENCOUNTER → 2019-07-15 10:49 | Outpatient (BNVA) | payer MEDICARE, SELFPAY | PROVIDERS: Family Provider Family Medicine; PCP Family Medicine; Visit Provider Family Medicine | DX: I25.10 Atherosclerotic heart disease of native coronary artery without angina pectoris (principal); I10 Essential (primary) hypertension; E83.110 Hereditary hemochromatosis; I48.91 Unspecified atrial fibrillation; L57.0 Actinic keratosis; B07.9 Viral wart, unspecified | CPT/HCPCS: 80053; 80061; 85025 ==

== ENCOUNTER 2019-11-13 12:12 | Emergency (ER) | payer MEDICARE, SELFPAY ==
[2019-11-13] VITALS (9 sets, daily range): BP systolic 139–184; BP diastolic 81–102; PULSE 56–67; RESP 17–20; TEMP 37.2–37.4; O2SAT 88–93; BMI 34.9
--- NOTE | 2019-11-13 12:33 | ECG_ITS ---
[facility] Test Date: 2019-11-13 Pat Name: Lavon oBone Department: Room: Gender: Male Instantizer Operator: : 1950 Requested By: Radha Moran Order Number: [id number] Aburto MD: Monse Huerta M.D. Measurements Intervals [place] Rate: 59 P: 61 NV: 230 QRS: 17 QRSD: 98 T: 20 QT: 344 QTc: 341 Interpretive Statements SINUS BRADYCARDIA WITH FIRST DEGREE AV BLOCK NONSPECIFIC T-WAVE ABNORMALITY Compared to ECG 04/02/2019 12:51:20 T-wave abnormality now present Sinus arrhythmia no longer present Electronically Signed On 11-13-2019 17:02:00 CDT by Monse Huerta M.D. [id number]
--- NOTE | 2019-11-13 12:33 | XRR_ITS ---
PROCEDURE INFORMATION: Exam: XR Chest, 1 View Exam date and time: 11/13/2019 1:29 PM Age: 69 years old Clinical indication: Shortness of breath; Additional info: SOB TECHNIQUE: Imaging protocol: XR of the chest Views: 1 view. COMPARISON: CR Chest 1 [place] [id number] 02/11/2019 1:54 PM FINDINGS: Lungs: Mild basilar airspace disease bilaterally. Pleural space: Unremarkable. No pleural effusion. No pneumothorax. Heart/Mediastinum: The cardiac silhouette appears enlarged, some of which is magnification related to the AP projection. Bones/joints: Unremarkable. XR/XR chest 1V portable [id number] IMPRESSION: Mild basilar airspace disease bilaterally. Minimal change.
[2019-11-13 12:42] LABS: Basophils % 0.1 %; Hematocrit 47.8 % (42.0-52.0); Lymphocytes # 1.3 10^3/uL (0.8-4.8); Lymphocytes % 11.5 %; Mean Corpuscular HGB Conc 33.5 g/dL (30.0-36.0); Mean Corpuscular Volume 95.6 fL (80-94); Mean Platelet Volume 10.2 fL (7.4-10.4); Monocytes # 1.1 10^3/uL (0.2-0.9); Neutrophils % 78.1 %; Nucleated Red Blood Cells % 0 %; Platelet Count 184 10^3/cmm (130-400); Red Cell Distribution Width 13.2 % (12.1-15.1); White Blood Count 10.9 10^3/uL (4.0-10.0)
--- NOTE | 2019-11-13 12:51 | PC.NURSE ---
Placed NC at 2 lpms to increase O2 sats
[2019-11-13 13:00] LABS: Troponin(5th) Baseline 15 ng/L (0-15)
[2019-11-13] MEDS: albuterol 8 gm MDI 2 PUFF INHALATION (13:00)
[2019-11-13 13:09] LABS: Alanine Aminotransferase 57 U/L (0-41); Albumin Level 4.4 g/dL (3.5-5.2); Alkaline Phosphatase 74 IU/L (40-130); Anion Gap 17.3 (5-19); Aspartate Amino Transferase 32 U/L (0-40); Blood Urea Nitrogen 31 mg/dL (8-23); Calcium 8.9 mg/dL (8.5-10.5); Carbon Dioxide 21 mmol/L (22-29); Chloride 103 mmol/L (98-107); Glomerular Filtration Rate 83.4 mL/min (90-130); Glucose 137 mg/dL (65-115); NT Pro B Type Natriuretic Pept 45 pg/mL (0-125); Osmolality Calculated 293 mOsm/kg (285-295); Potassium 4.3 mmol/L (3.5-5.1); Sodium 137 mmol/L (136-145); Total Bilirubin 1.1 mg/dL (0.15-1.2); Total Protein 7.4 g/dL (6.6-8.7)
[2019-11-13 13:51] LABS: SARS Covid-2 Antigen Positive (Negative)
--- NOTE | 2019-11-13 14:02 | ED_ITS ---
HPI - SOB/Dyspnea General: Chief Complaint: Shortness of Breath/Dyspnea Stated Complaint: coughing/muscle aches Time Seen by Provider: 11/13/19 12:22 Source: patient Mode of arrival: ambulatory Limitations: no limitations History of Present Illness: HPI Narrative: 55 yo male patient presents to the ER c/o severe shortness of breath. Pt states he has never experienced this befo re pt states he has pain in between his shoulder blades. Pt denies fever, abd pain, n/v/d. Pt denies headache, denies urinary symptoms. Pt has a stent and states he had a negative stress test less than a year ago. Onset (ago): day(s) (3) Associated symptoms: Reports no associated symptoms; Deny abdominal pain, chest congestion, chest pain, dizziness, fever(s), hemoptysis, lightheadedness, nausea, palpitations, syncope or vomiting Review of Systems General: Reports: 10 or more systems reviewed and unremarkable except in HPI and below Const: Denies: fever(s), chills or body aches Eyes: Denies: change in vision or blurry vision ENMT: Denies: throat pain, odynophagia, mouth pain or ear or mastoid pain Card: Denies: chest pain, palpitations, irregular heart rhythm, lightheadedness or syncope Resp: Reports: dyspnea, non-productive cough, wheezing and pain on inspiration; Denies: hemoptysis or chest congestion GI: Denies: abdominal pain, nausea, vomiting, diarrhea or constipation : Denies: flank pain, difficulty urinating, dysuria, urinary frequency or urinary urgency Musc: Reports: neck pain and back pain (pain in thoracic area) Skin/Breast: Denies: rash Neuro: Denies: headache(s), numbness in extremities, weakness in extremities, sensory changes, lack of coordination, difficulty walking, dizziness, vertigo or confusion Psych: Denies: anxiety, depression, suicidal ideation or homicidal ideation PFSH ED PFSH: Medical History Allergic rhinitis CAD (coronary artery disease) Chronic arthritis Hereditary hemochromatosis Hyperlipidemia Hypertension Restless legs syndrome (RLS) Surgical History History of coronary artery stent placement Hx of cardiac catheterization Hx of colonoscopy Hx of hernia repair Social History Smoking and tobacco status: never smoked Physical Exam Const: COMMON NORMALS: no acute distress, average body habitus, patient oriented x3, no limitations, healthy appearing, alert and well nourished HENMT: COMMON NORMALS: normocephalic, atraumatic, hearing grossly normal bilaterally, external ears normal, EAC's normal, TM's normal bilaterally, Normal external nose present, Normal nasal mucous membranes and turbinates present, moist oral mucous membranes, oropharynx normal, dentition normal and gingiva normal HEAD & SCALP: normocephalic and atraumatic NOSE: Normal external nose present and Normal nasal mucous membranes and turbinates present EXTERNAL EAR: Yes external ears normal EXTERNAL AUDITORY CANAL: EAC's normal TYMPANIC MEMBRANE: TM's normal bilaterally Eye: COMMON NORMALS: Equal, round and reactive pupils present, EOMs intact bilaterally, conjunctivae normal, no scleral icterus, no papilledema, normal visual griffin by confrontation and fundi normal bilaterally CONJUNCTIVA: Yes conjunctivae normal PUPIL: Yes Equal, round and reactive pupils present DIRECT OPHTHALMOSCOPY: Yes no papilledema and Yes fundi normal bilaterally Neck/C-Spine: COMMON NORMALS: full ROM, no lymphadenopathy, supple, no meningeal signs, no JVD, Thyroid normal and No carotid bruits THYROID: Thyroid normal Lymph: LYMPHATIC: no lymphadenopathy noted Chest: COMMONS NORMALS: normal inspection of the chest, normal palpation of entire chest wall, normal inspection of the breasts and normal palpation of the breasts Resp: COMMON NORMALS: normal respiratory effort, No retractions, No use of accessory muscles and percussion normal EFFORT & INSPECTION: Yes tachypneic and Yes Actively coughing AUSCULTATION: rhonchi and wheezes PERCUSSION: percussion normal Cardio: COMMON NORMALS: no JVD, regular rate and regular rhythm RATE: regular rate RHYTHM: regular rhythm GI: COMMON NORMALS: Normal to inspection, nondistended, normoactive bowel sounds present, Soft to palpation, non-tender, No hepatosplenomegaly present, no masses and no bruits PALPATION: Yes Soft to palpation and Yes No hepatosplenomegaly present : COMMON NORMALS: Yes no CVA tenderness, Yes normal external exam, Yes Testes normal, Yes scrotum normal, Yes no scrotal swelling and Yes No hernias present BLADDER/KIDNEY EXAM: Yes no CVA tenderness Back/Pelvis: COMMON NORMALS: no CVA tenderness, thoracic and lumbar spine normal to inspection, no thoracic nor lumbar tenderness, thoraco-lumbar ROM normal and straight leg raise negative bilaterally Extremity: COMMON NORMALS: normal to inspection, full ROM, capillary refill normal, no joint enlargement, no clubbing, cyanosis or edema, no calf tenderness and no pedal edema Neuro: COMMON NORMALS: patient oriented x3, CN's II-XII intact bilaterally, moves all extremities, no focal motor deficits, no sensory deficits noted, deep tendon reflexes 2+ bilaterally and gait normal SENSORIUM/ORIENTATION: Yes alert MENINGEAL SIGNS: Yes no meningeal signs Psych: COMMON NORMALS: mental status grossly normal, Normal thought process present, cooperative, normal affect, speech normal, activity/motor behavior normal, denies hallucinations, denies homicidal ideation and denies suicidal ideation SPEECH: Yes normal speech THOUGHT PROCESS: Normal thought process present Skin: COMMON NORMALS: no rashes or lesions noted, no wounds, turgor normal, no jaundice, no petechiae and no mottling GENERAL SKIN EXAM: no rashes or lesions noted and turgor normal Course Vital Signs: Vital signs: Vital Signs Temperature 99.0 F 11/13/19 12:24 Pulse Rate 58 L 11/13/19 15:50 Respiratory Rate 18 11/13/19 15:50 Blood Pressure 157/81 11/13/19 15:50 Pulse Oximetry 93 11/13/19 15:50 MDM - SOB/Dyspnea MDM Narrative: Medical decision making narrative: Pt is ill appearing non toxic and in no acute distress. Pt chest xray is c/w covid. Pt pulse ox remains in low 90s on 2-3l of O2. Pt BUN is elevated pts ferritin and LDH are elevated. Pt d-dimer normal. I called and discussed with [facility] for transfer and admission. Dr. Elam feels this patient is appropriate for outpatient treatment with home o2 set up. Dr. Elam will telehealth with patient to check on his daily status. Dr. Elam advised to start patient on Zinc, Thiamine, Vitamin c and DEcadron. Pt was given Solu medrol 125 mg IV here as well as 1 liter of fluids an Albuterol inhaler. Pt states he feels a little better. Pt 93% on 2 L respers 18 60 bpm and 157/81. Pt is afevrile. I discussed this plan of care with patient and patients feels this is reasonable. Pt is resting comfortable eating at bedside. I will also send patient home with albuterol inhaler Differential Diagnosis: Shortness of Breath Differential Diagnosis: Likely acute exacerbation of chronic obstructive airways disease, congestive heart failure, community acquired pneumonia, asthma with exacerbation and pulmonary embolism Lab Data: Labs: Lab Results 11/13/19 11/13/19 11/13/19 Range/Units 12:32 12:32 12:32 WBC 10.9 H (4.0-10.0) 10^3/ uL RBC 5.00 (4.1-5.3) 10^6/u L Hgb 16.0 (11.7-16.6) g/dL Hct 47.8 (42.0-52.0) % MCV 95.6 H (80-94) fL MCH 32.0 (28.0-34.0) pg MCHC 33.5 (30.0-36.0) g/dL RDW 13.2 (12.1-15.1) % Plt Count 184 (130-400) 10^3/c mm MPV 10.2 (7.4-10.4) fL Neut % (Auto) 78.1 % Lymph % (Auto) 11.5 % [place] % (Auto) 10.0 % Eos % (Auto) 0.0 % Baso % (Auto) 0.1 % Neut # (Auto) 8.50 H (1.8-7.7) 10^3/u L Lymph # (Auto) 1.3 (0.8-4.8) 10^3/u L [place] # (Auto) 1.1 H (0.2-0.9) 10^3/u L Eos # (Auto) 0.0 (0.0-0.8) 10^3/u L Baso # (Auto) 0.0 (0.0-0.1) 10^3/u L Nucleated RBC % (a uto) 0 % Nucleated RBCs # 0.0 /100WBC D-Dimer (0-0.59) ug/mIFE U Sodium 137 (136-145) mmol/L Potassium 4.3 (3.5-5.1) mmol/L Chloride 103 (98-107) mmol/L Carbon Dioxide 21 L (22-29) mmol/L Anion Gap 17.3 (5-19) BUN 31 H (8-23) mg/dL Creatinine 0.9 (0.7-1.2) mg/dL GFR Calculation 83.4 L (90-130) mL/min Glucose 137 H (65-115) mg/dL Calculated Osmolal ity 293 (285-295) mOsm/k g Lactate (0.5-2.2) mmol/L Calcium 8.9 (8.5-10.5) mg/dL Ferritin (30-400) ng/mL Total Bilirubin 1.1 (0.15-1.2) mg/dL AST 32 (0-40) U/L ALT 57 H (0-41) U/L Alkaline Phosphata se 74 (40-130) IU/L Lactate Dehydrogen ase (135-225) U/L Troponin T Baselin e 15 (0-15) ng/L Troponin T 120 Min [place] (0-15) ng/L Delta Troponin T (0-10) ABS# NT-Pro-B Natriuret Pep 45 (0-125) pg/mL Total Protein 7.4 (6.6-8.7) g/dL Albumin 4.4 (3.5-5.2) g/dL Globulin 3.0 (1.3-4.6) g/dL SARS-CoV-2 Ag (Rap id) (Negative) 11/13/19 11/13/19 11/13/19 Range/Units 12:32 12:32 12:32 WBC (4.0-10.0) 10^3/ uL RBC (4.1-5.3) 10^6/u L Hgb (11.7-16.6) g/dL Hct (42.0-52.0) % MCV (80-94) fL MCH (28.0-34.0) pg MCHC (30.0-36.0) g/dL RDW (12.1-15.1) % Plt Count (130-400) 10^3/c mm MPV (7.4-10.4) fL Neut % (Auto) % Lymph % (Auto) % [place] % (Auto) % Eos % (Auto) % Baso % (Auto) % Neut # (Auto) (1.8-7.7) 10^3/u L Lymph # (Auto) (0.8-4.8) 10^3/u L [place] # (Auto) (0.2-0.9) 10^3/u L Eos # (Auto) (0.0-0.8) 10^3/u L Baso # (Auto) (0.0-0.1) 10^3/u L Nucleated RBC % (a uto) % Nucleated RBCs # /100WBC D-Dimer <= 0.27 (0-0.59) ug/mIFE U Sodium (136-145) mmol/L Potassium (3.5-5.1) mmol/L Chloride (98-107) mmol/L Carbon Dioxide (22-29) mmol/L Anion Gap (5-19) BUN (8-23) mg/dL Creatinine (0.7-1.2) mg/dL GFR Calculation (90-130) mL/min Glucose (65-115) mg/dL Calculated Osmolal ity (285-295) mOsm/k g Lactate 1.0 (0.5-2.2) mmol/L Calcium (8.5-10.5) mg/dL Ferritin 856 H (30-400) ng/mL Total Bilirubin (0.15-1.2) mg/dL AST (0-40) U/L ALT (0-41) U/L Alkaline Phosphata se (40-130) IU/L Lactate Dehydrogen ase 253 H (135-225) U/L Troponin T Baselin e (0-15) ng/L Troponin T 120 Min [place] (0-15) ng/L Delta Troponin T (0-10) ABS# NT-Pro-B Natriuret Pep (0-125) pg/mL Total Protein (6.6-8.7) g/dL Albumin (3.5-5.2) g/dL Globulin (1.3-4.6) g/dL SARS-CoV-2 Ag (Rap id) (Negative) 11/13/19 11/13/19 Range/Units 13:05 14:48 WBC (4.0-10.0) 10^3/ uL RBC (4.1-5.3) 10^6/u L Hgb (11.7-16.6) g/dL Hct (42.0-52.0) % MCV (80-94) fL MCH (28.0-34.0) pg MCHC (30.0-36.0) g/dL RDW (12.1-15.1) % Plt Count (130-400) 10^3/c mm MPV (7.4-10.4) fL Neut % (Auto) % Lymph % (Auto) % [place] % (Auto) % Eos % (Auto) % Baso % (Auto) % Neut # (Auto) (1.8-7.7) 10^3/u L Lymph # (Auto) (0.8-4.8) 10^3/u L [place] # (Auto) (0.2-0.9) 10^3/u L Eos # (Auto) (0.0-0.8) 10^3/u L Baso # (Auto) (0.0-0.1) 10^3/u L Nucleated RBC % (a uto) % Nucleated RBCs # /100WBC D-Dimer (0-0.59) ug/mIFE U Sodium (136-145) mmol/L Potassium (3.5-5.1) mmol/L Chloride (98-107) mmol/L Carbon Dioxide (22-29) mmol/L Anion Gap (5-19) BUN (8-23) mg/dL Creatinine (0.7-1.2) mg/dL GFR Calculation (90-130) mL/min Glucose (65-115) mg/dL Calculated Osmolal ity (285-295) mOsm/k g Lactate (0.5-2.2) mmol/L Calcium (8.5-10.5) mg/dL Ferritin (30-400) ng/mL Total Bilirubin (0.15-1.2) mg/dL AST (0-40) U/L ALT (0-41) U/L Alkaline Phosphata se (40-130) IU/L Lactate Dehydrogen ase (135-225) U/L Troponin T Baselin e (0-15) ng/L Troponin T 120 Min [place] 13.68 (0-15) ng/L Delta Troponin T -1.32 L (0-10) ABS# NT-Pro-B Natriuret Pep (0-125) pg/mL Total Protein (6.6-8.7) g/dL Albumin (3.5-5.2) g/dL Globulin (1.3-4.6) g/dL SARS-CoV-2 Ag (Rap id) Positive H (Negative) Discharge Plan Discharge Patient Disposition: Home Clinical Impression: COVID-19 virus detected Condition: Stable Prescriptions: New dexamethasone 6 mg tablet 6 mg PO DAILY 10 Days Qty: 10 RF: 0 zinc sulfate 220 (50) mg capsule 220 mg PO DAILY 10 Days Qty: 10 RF: 0 thiamine HCl (vitamin B1) 100 mg tablet 100 mg PO DAILY 10 Days Qty: 10 RF: 0 ascorbic acid (vitamin C) 1,000 mg tablet 1 gm PO DAILY 10 Days Qty: 10 RF: 0 albuterol sulfate 90 mcg/actuation HFA aerosol inhaler 2 inh INHALATION Q8H PRN (Reason: shortness of breath or wheezing) Qty: 18 RF: 0 No Action loratadine 10 mg tablet 10 mg PO DAILY 30 Days Qty: 30 RF: 5 diltiazem HCl 180 mg capsule,extended release 24hr 180 mg PO DAILY 90 Days Qty: 90 RF: 1 rivaroxaban 20 mg tablet 20 mg PO DAILY 90 Days Qty: 90 RF: 1 telmisartan 20 mg tablet See Rx Instructions .ROUTE .COMPLEX Qty: 90 RF: 1 tramadol 50 mg tablet 50 mg PO BID PRN (Reason: pain) Qty: 60 RF: 0 amiodarone 200 mg tablet See Rx Instructions .ROUTE .COMPLEX Qty: 60 RF: 5 simvastatin 40 mg tablet See Rx Instructions .ROUTE .COMPLEX Qty: 90 RF: 1 pramipexole 0.25 mg Tablet 0.25 mg PO DAILY RF: 0 aspirin 81 mg Tablet,Chewable 81 mg PO DAILY RF: 0 Discharge Orders: Discharge Order (Routine); Ordered 11/13/19 Ordered By: Radha Moran Referrals: Elizabeth Xiao MD [Primary Care Provider] - Discharge Diet: Advance as tolerated Discharge Activity: Resume usual activity, Limit activity as instructed and Oxygen as instructed Activity Restrictions/Additional Instructions: Dr. Elam will contact you on Friday and coordinate Tele health visits to ensure you are getting better. Please take meds as prescribed Please use Home O2 as prescribed Please return to ER with any worsening of symtoms or any concerning findings Rest Drink plenty of fluids Coding Level of Care Code ED Service Advisor for Chg Fwd Exam Comprehensive
[2019-11-13 14:09] LABS: D Dimer <= 0.27 ug/mIFEU (0-0.59)
[2019-11-13 14:15] LABS: Ferritin 856 ng/mL (30-400); Lactate Dehydrogenase 253 U/L (135-225)
--- NOTE | 2019-11-13 14:33 | ECG_ITS ---
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 Measurements Intervals [place] Rate: 61 P: 35 MT: 209 QRS: 6 QRSD: 98 T: 12 QT: 340 QTc: 344 Interpretive Statements SINUS RHYTHM VOLTAGE CRITERIA FOR LVH [MEETS CRITERIA IN ONE OF: R(aVL), S(V1), R(V5), R(V5/V6)+S(V1)] NONSPECIFIC T-WAVE ABNORMALITY Compared to ECG 11/13/2019 12:39:23 Left ventricular hypertrophy now present Sinus bradycardia no longer present First degree AV block no longer present T-wave abnormality still present Electronically Signed On 11-13-2019 17:03:57 CDT by Monse Huerta M.D. [id number] f
[2019-11-13] MEDS: sodium chloride 0.9% 1,000 ML 30 ML IV (15:00)
[2019-11-13 15:52] LABS: Troponin 5 2HR 13.68 ng/L (0-15)
[2019-11-13 15:58] LABS: Troponin 5 2HR Delta -1.32 ABS# (0-10)
[2019-11-13] MEDS: dexamethasone 10 mg/mL INJ 6 MG IVP (16:56)
[2019-11-13] MEDS: ketorolac 30 mg/mL INJ 15 MG IVP (16:56)
--- NOTE | 2019-11-14 09:19 | PC.SOCIAL ---
Arrived to work this AM and there was Home Oxygen Eval order on the printer in CM office. Spoke with Rhina in the ER who states that patient was discharged from the ER and did get set up with oxygen through HOME yesterday prior to leaving the ER.
== END 2019-11-13 18:58 | disposition home or self-care (01) ==
PROVIDERS: Emergency Provider Registered Nurse; PCP Family Medicine
DX: U07.1 COVID-19 (principal); Z79.82 Long term (current) use of aspirin; I25.10 Atherosclerotic heart disease of native coronary artery without angina pectoris; E78.5 Hyperlipidemia, unspecified; I10 Essential (primary) hypertension
CPT/HCPCS: 12345; 36415; 71045; 80053; 82728; 83605; 83615; 83880; 84484; 85025; 85378; 87040; 87426; 93005; 94640; 96361; 96374; 96375; 99283; 99284; J1100; J1885; J2930; J3535; J7030

== ENCOUNTER → 2019-11-25 09:08 | Outpatient (BNVA) | payer MEDICARE, SELFPAY | PROVIDERS: PCP Family Medicine; Referring Provider Student in an Organized Health Care Education/Training Program; Visit Provider Student in an Organized Health Care Education/Training Program | DX: U07.1 COVID-19 (principal) | CPT/HCPCS: 83615; 86140 ==

== ENCOUNTER → 2020-04-06 13:28 | Outpatient (BNVA) | payer MEDICARE, SELFPAY | PROVIDERS: PCP Family Medicine; Visit Provider Family Medicine | DX: E83.110 Hereditary hemochromatosis (principal); L57.0 Actinic keratosis; B07.9 Viral wart, unspecified; G25.81 Restless legs syndrome; I25.10 Atherosclerotic heart disease of native coronary artery without angina pectoris; I48.91 Unspecified atrial fibrillation; E78.5 Hyperlipidemia, unspecified | CPT/HCPCS: 80053; 80061; 83540; 85025 ==

== ENCOUNTER → 2020-08-29 10:18 | Outpatient (BNVA) | payer MEDICARE, SELFPAY | PROVIDERS: PCP Family Medicine; Visit Provider Family Medicine | DX: E83.110 Hereditary hemochromatosis (principal); I10 Essential (primary) hypertension | CPT/HCPCS: 80053; 83540; 85025 ==

== ENCOUNTER → 2020-11-16 09:46 | Outpatient (BNVA) | payer MEDICARE, SELFPAY | PROVIDERS: PCP Family Medicine; Visit Provider Family Medicine | DX: I10 Essential (primary) hypertension (principal); J44.9 Chronic obstructive pulmonary disease, unspecified; E83.110 Hereditary hemochromatosis; Z79.899 Other long term (current) drug therapy | CPT/HCPCS: 80053; 81003; 84443; 85025 ==

== ENCOUNTER → 2021-01-30 09:39 | Outpatient (BNVA) | payer MEDICARE, SELFPAY | PROVIDERS: PCP Family Medicine; Visit Provider Family Medicine | DX: Z00.00 Encounter for general adult medical examination without abnormal findings (principal); I10 Essential (primary) hypertension; I25.10 Atherosclerotic heart disease of native coronary artery without angina pectoris; E83.110 Hereditary hemochromatosis; E78.5 Hyperlipidemia, unspecified; I48.91 Unspecified atrial fibrillation; L03.116 Cellulitis of left lower limb; M19.90 Unspecified osteoarthritis, unspecified site; E05.90 Thyrotoxicosis, unspecified without thyrotoxic crisis or storm | CPT/HCPCS: 80053; 80061; 83540; 84439; 84443; 84481; 85025 ==

== ENCOUNTER → 2021-04-05 10:35 | Outpatient (BNVA) | payer MEDICARE, SELFPAY | PROVIDERS: PCP Family Medicine; Visit Provider Family Medicine | DX: J18.9 Pneumonia, unspecified organism (principal); R68.89 Other general symptoms and signs | CPT/HCPCS: 87400; 87635; 87880 ==

== ENCOUNTER → 2021-04-09 15:11 | Outpatient (BNVA) | payer MEDICARE, SELFPAY | PROVIDERS: PCP Family Medicine; Visit Provider Nurse Practitioner Family | DX: J18.9 Pneumonia, unspecified organism (principal); R06.02 Shortness of breath; R21 Rash and other nonspecific skin eruption; J40 Bronchitis, not specified as acute or chronic | CPT/HCPCS: 71046 ==

== ENCOUNTER → 2021-05-31 10:14 | Outpatient (BNVA) | payer MEDICARE, SELFPAY | PROVIDERS: PCP Family Medicine; Visit Provider Emergency Medicine | DX: M47.894 Other spondylosis, thoracic region (principal); M54.6 Pain in thoracic spine | CPT/HCPCS: 72072 ==

== ENCOUNTER → 2021-06-21 09:03 | Outpatient (BNVA) | payer MEDICARE, SELFPAY | PROVIDERS: PCP Family Medicine; Visit Provider Family Medicine | DX: M19.90 Unspecified osteoarthritis, unspecified site (principal); I50.9 Heart failure, unspecified; I10 Essential (primary) hypertension; E83.110 Hereditary hemochromatosis; E03.9 Hypothyroidism, unspecified | CPT/HCPCS: 80053; 83540; 84443; 85025 ==

== ENCOUNTER 2021-08-01 09:04 | Outpatient (CLI) | payer MEDICARE, SELFPAY | END 2021-08-01 09:05 | disposition home or self-care (01) | LOC: LAB 09:09 | PROVIDERS: PCP Family Medicine; Visit Provider Urology | DX: R39.9 Unspecified symptoms and signs involving the genitourinary system (principal); Z12.5 Encounter for screening for malignant neoplasm of prostate; N40.1 Benign prostatic hyperplasia with lower urinary tract symptoms | CPT/HCPCS: 36415; 51741; 51798; 81003; 99213; G0103 ==

== ENCOUNTER → 2021-08-06 09:03 | Outpatient (BNVA) | payer MEDICARE, SELFPAY | PROVIDERS: PCP Family Medicine; Visit Provider Nurse Practitioner Family | DX: I48.20 Chronic atrial fibrillation, unspecified (principal); I25.10 Atherosclerotic heart disease of native coronary artery without angina pectoris; I10 Essential (primary) hypertension | CPT/HCPCS: 36415; 80048; 83880; 99214 ==

== ENCOUNTER → 2021-09-12 14:43 | Outpatient (BNVA) | payer MEDICARE, SELFPAY | PROVIDERS: PCP Family Medicine; Visit Provider Nurse Practitioner Family | DX: I48.20 Chronic atrial fibrillation, unspecified (principal); I11.0 Hypertensive heart disease with heart failure; I50.9 Heart failure, unspecified | CPT/HCPCS: 99214 ==

== ENCOUNTER 2021-09-24 10:38 | Observation (INO) | payer MEDICARE, SELFPAY ==
[2021-09-24] VITALS (42 sets, daily range): BP systolic 104–175; BP diastolic 55–93; PULSE 53–93; RESP 15–28; O2SAT 85–96; BMI 36.6
--- NOTE | 2021-09-24 10:39 | XRR_ITS ---
PROCEDURE INFORMATION: Exam: XR Chest Exam date and time: 09/24/2021 10:58 AM Age: 70 years old Clinical indication: Pain; Angina pectoris; Additional info: Chest pain TECHNIQUE: Imaging protocol: Radiologic exam of the chest. Views: 1 view. COMPARISON: CR XR chest 2V* [id number] 04/09/2021 3:26 PM FINDINGS: Lungs: Poor inspiration. Decreased lung volumes. No pulmonary vascular congestion, pulmonary edema or pneumonia. Pleural spaces: No large pleural effusions. No pneumothorax. Heart/Mediastinum: The cardiac silhouette is not enlarged. There is widening of the mediastinum, perhaps due to mediastinal lipomatosis given the patient's body habitus. Bones/joints: No acute osseous abnormality. XR/XR chest 1V portable [id number] IMPRESSION: No acute finding.
--- NOTE | 2021-09-24 10:39 | ECG_ITS ---
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 Measurements Intervals [place] Rate: 78 P: 83 FL: 226 QRS: 28 QRSD: 103 T: 1 QT: 315 QTc: 360 Interpretive Statements SINUS RHYTHM WITH FIRST DEGREE AV BLOCK NONSPECIFIC ST & T-WAVE ABNORMALITY Compared to ECG 11/13/2019 14:56:41 First degree AV block now present Left ventricular hypertrophy no longer present T-wave abnormality still present Electronically Signed On 09-25-2021 0:45:26 CDT by Monse Huerta M.D. [email or web address].Doodle/store/[id number] f
[2021-09-24 10:48] LABS: Basophils % 0.6 %; Eosinophils # 0.1 10^3/uL (0.0-0.8); Hematocrit 43.9 % (42.0-52.0); Hemoglobin 15.1 g/dL (11.7-16.6); Lymphocytes # 1.7 10^3/uL (0.8-4.8); Lymphocytes % 23.7 %; Mean Corpuscular HGB Conc 34.4 g/dL (30.0-36.0); Mean Corpuscular Hemoglobin 32.6 pg (28.0-34.0); Mean Corpuscular Volume 94.8 fl (80-94); Mean Platelet Volume 9.9 fL (7.4-10.4); Monocytes # 0.8 10^3/uL (0.2-0.9); Monocytes % 11.6 %; Neutrophils # 4.56 10^3/uL (1.8-7.7); Neutrophils % 62.5 %; Nucleated Red Blood Cells % 0 %; Platelet Count 153 10^3/cmm (130-400); Red Blood Count 4.63 10^6/uL (4.1-5.3); Red Cell Distribution Width 12.1 % (12.1-15.1); White Blood Count 7.3 10^3/uL (4.0-10.0)
[2021-09-24] MEDS: ondansetron 2 mg/ML SDV 2 mL 4 MG IVP (10:48)
[2021-09-24] MEDS: morphine 4 mg/mL SDV 1 mL IVP (10:49)
[2021-09-24] MEDS: aspirin 325 mg Tablet PO (10:49)
[2021-09-24] MEDS: sodium chloride 0.9% 1,000 ML 999 ML IV (10:49)
[2021-09-24] MEDS: clopidogrel 300 mg Tablet PO (10:49)
--- NOTE | 2021-09-24 10:49 | ED_ITS ---
HPI - Chest Pain General: Chief Complaint: Chest Pain Stated Complaint: CHEST PAIN/ POSSIBLE STEMI Time Seen by Provider: 09/24/21 10:39 Source: patient Mode of arrival: EMS History of Present Illness: 70-year-old male presents emergency room via air EVAC from the local clinic. Patient has been having chest pain for about the la st 2 weeks intermittently worse with exertion better with rest radiating down his left arm causing some nausea and shortness of breath that increased in intensity during that time is also has begun occurring while he is at rest and actually had a bout of 3 to 5-minute episode of chest pain while we are taking his history it resolved spontaneously. Patient has a history of atrial fibrillation he does take aspirin and Xarelto. He has a known history of coronary disease and previously has had a stent. He is not diabetic and does not smoke. Initial EKG at the clinic was concerning for a posterior CT. MD complaint: chest pain Pertinent past history: coronary artery disease Onset (ago): week(s) (2 -has been escalating in frequency and intensity) Timing of current episode: episodic Prior episodes: Yes Onset: during rest and during exertion Pain location: left chest Pain radiation: left arm Severity: moderate Quality: tightness, aching and heaviness Relieving factors: rest Exacerbating factors: exertion Associated symptoms: Reports dyspnea; Deny abdominal pain, diaphoresis, fever(s), leg edema, nausea, palpitations, sense of impending doom, syncope or vomiting Treatment prior to arrival: aspirin and nitroglycerin Review of Systems Const: Denies: fever(s), chills, fatigue, malaise or diaphoresis ENMT: Denies: throat pain, ear or mastoid pain, nasal discharge or nasal congestion Card: Denies: chest pain, palpitations or syncope Resp: Reports: dyspnea; Denies: productive cough or non-productive cough GI: Denies: abdominal pain, nausea or vomiting : Denies: flank pain, difficulty urinating, dysuria, urinary frequency or urinary urgency Skin/Breast: Denies: rash or pruritus PFSH ED PFSH: Medical History Acute thoracic back pain Allergic rhinitis BPH loc w urin obs/LUTS CAD (coronary artery disease) Chronic arthritis Hereditary hemochromatosis Hyperlipidemia Hypertension Lower urinary tract symptoms (LUTS) Restless leg syndrome Restless legs syndrome (RLS) Spinal osteoarthritis Unstable angina Surgical History History of coronary artery stent placement Hx of cardiac catheterization Hx of colonoscopy Hx of hernia repair Family History Mother , at age 94 Cancer Breast cancer Father , at age 88 Prostate cancer Social History Smoking and tobacco status: never smoked Alcohol intake: never Household members: spouse Marital status: Current occupational status: employed and disabled History of recent travel: No Physical Exam Const: GENERAL APPEARANCE: cooperative and comfortable ORIENTATION/CONSCIOUSNESS: Yes awake, Yes oriented to person, Yes oriented to place and Yes oriented to time HENMT: COMMON NORMALS: normocephalic, atraumatic and hearing grossly normal bilaterally HEAD & SCALP: normocephalic and atraumatic Eye: COMMON NORMALS: Equal, round and reactive pupils present, EOMs intact bilaterally, conjunctivae normal and no scleral icterus CONJUNCTIVA: Yes conjunctivae normal PUPIL: Yes Equal, round and reactive pupils present Neck/C-Spine: COMMON NORMALS: full ROM, no lymphadenopathy, supple and no JVD Lymph: LYMPHATIC: no lymphadenopathy noted and no lymphedema noted Resp: COMMON NORMALS: normal respiratory effort, No retractions, No use of accessory muscles and clear to auscultation bilaterally AUSCULTATION: clear to auscultation bilaterally Cardio: COMMON NORMALS: no JVD, regular rate, regular rhythm and No murmurs present (Cardio) RATE: regular rate RHYTHM: regular rhythm GI: COMMON NORMALS: Soft to palpation and No hepatosplenomegaly present AUSCULTATION: Yes normoactive bowel sounds PALPATION: Yes Soft to palpation, No Tenderness to palpation present (GI), No Guarding due to palpation present (GI) and Yes No hepatosplenomegaly present Extremity: COMMON NORMALS: normal to inspection, capillary refill normal, no clubbing, cyanosis or edema, no calf tenderness and no pedal edema Neuro: SENSORIUM/ORIENTATION: Yes oriented to person, Yes oriented to place and Yes oriented to time Skin: COMMON NORMALS: no rashes or lesions noted GENERAL SKIN EXAM: no rashes or lesions noted Course Vital Signs: Vital signs: Vital Signs Temperature 97.7 F 09/25/21 04:00 Pulse Rate 52 L 09/25/21 10:19 Respiratory Rate 16 09/25/21 05:00 Blood Pressure 132/75 09/25/21 05:00 Pulse Oximetry 92 09/25/21 10:19 Oxygen Delivery Me thod 09/25/21 07:51 Oxygen Flow Rate 3 09/24/21 10:55 MDM - Chest Pain Medical Decision Making Unstable angina progressively worsening symptoms throughout the last week. Patient has ST depression in the anterior leads V2 through V5 and a little in V6. Concerning for subendocardial ischemia given his presentation complaint of pain which has been unstable and progressively worsening discussed with cardiology they are taking patient directly to [facility]. Medical Records I reviewed the patient's medical records. Lab Data I reviewed the patient's lab results. : 09/25/21 05:20 09/25/21 05:20 Radiology Impressions Chest X-Ray 09/24/21 10:39 IMPRESSION: No acute finding. Laboratory Results WBC 7.3 10^3/uL (4.0-10.0) 09/24/21 10:35 RBC 4.63 10^6/uL (4.1-5.3) 09/24/21 10:35 Hgb 15.1 g/dL (11.7-16.6) 09/24/21 10:35 Hct 43.9 % (42.0-52.0) 09/24/21 10:35 MCV 94.8 fl (80-94) H 09/24/21 10:35 MCH 32.6 pg (28.0-34.0) 09/24/21 10:35 MCHC 34.4 g/dL (30.0-36.0) 09/24/21 10:35 RDW 12.1 % (12.1-15.1) 09/24/21 10:35 Plt Count 153 10^3/cmm (130-400) 09/24/21 10:35 MPV 9.9 fL (7.4-10.4) 09/24/21 10:35 Neut % (Auto) 62.5 % 09/24/21 10:35 Lymph % (Auto) 23.7 % 09/24/21 10:35 [place] % (Auto) 11.6 % 09/24/21 10:35 Eos % (Auto) 1.0 % 09/24/21 10:35 Baso % (Auto) 0.6 % 09/24/21 10:35 Neut # (Auto) 4.56 10^3/uL (1.8-7.7) 09/24/21 10:35 Lymph # (Auto) 1.7 10^3/uL (0.8-4.8) 09/24/21 10:35 [place] # (Auto) 0.8 10^3/uL (0.2-0.9) 09/24/21 10:35 Eos # (Auto) 0.1 10^3/uL (0.0-0.8) 09/24/21 10:35 Baso # (Auto) 0.0 10^3/uL (0.0-0.1) 09/24/21 10:35 Nucleated RBC % (auto) 0 % 09/24/21 10:35 Nucleated RBCs # 0.0 /100WBC 09/24/21 10:35 Sodium 140 mmol/L (136-145) 09/24/21 10:35 Potassium 4.3 mmol/L (3.5-5.1) 09/24/21 10:35 Chloride 108 mmol/L (98-107) H 09/24/21 10:35 Carbon Dioxide 20 mmol/L (22-29) L 09/24/21 10:35 Anion Gap 16.3 (5-19) 09/24/21 10:35 BUN 28 mg/dL (8-23) H 09/24/21 10:35 Creatinine 0.8 mg/dL (0.7-1.2) 09/24/21 10:35 GFR Calculation Not Reportable 09/24/21 10:35 Glucose 113 mg/dL (65-115) 09/24/21 10:35 Calculated Osmolality 296 mOsm/kg (285-295) H 09/24/21 10:35 Calcium 8.7 mg/dL (8.5-10.5) 09/24/21 10:35 Total Bilirubin 0.5 mg/dL (0.15-1.2) 09/24/21 10:35 AST 18 U/L (0-40) 09/24/21 10:35 ALT 23 U/L (0-41) 09/24/21 10:35 Alkaline Phosphatase 78 IU/L (40-130) 09/24/21 10:35 Troponin T Baseline 28 ng/L (0-15) H 09/24/21 10:35 Total Protein 6.4 g/dL (6.6-8.7) L 09/24/21 10:35 Albumin 4.1 g/dL (3.5-5.2) 09/24/21 10:35 Globulin 2.3 g/dL (1.3-4.6) 09/24/21 10:35 Discharge Plan Discharge Patient Disposition: Admitted As Inpatient Admit Provider: Harish Thompson Clinical Impression: Unstable angina, CAD (coronary artery disease), Hypertension, Chest pain, Atrial fibrillation Condition: Stable Discharge Diet: Cardiac Discharge Activity: Increase activity as tolerated Coding Level of Care Code ED Cutter Wet Machine for Sergio Fwd Exam Comprehensive
[2021-09-24] MEDS: heparin 5,000 unit/mL INJ 1 mL 4000 UNIT IVP (10:50)
[2021-09-24] MEDS: sodium chloride 0.9% 500 ML 999 ML IV (10:52)
[2021-09-24] MEDS: nitroglycerin 1 gm/inch oint Pkt 1 INCH TOPICAL (10:53)
--- NOTE | 2021-09-24 11:06 | XACV_ITS ---
Exam Room: ED.ROOM11 Ht: 178 cm Wt: 113 kg BSA: 2.41 m2 Gender: Male : 1950 Exam Priority: Routine Procedure(s): Procedure Description: Diagnostic procedure Procedure Description: PCI procedure Procedure Description: Drug Eluting Coronary Stent Procedure Description: PTCA Procedure Description: Miscellaneous Procedure Description: ACT Procedure Description: Coronary Angiography Diagnostic Cath Status: Emergency Diagnostic Findings * Left Main has no significant disease. * Left Anterior Descending has mild proximal LAD stenosis. * Circumflex has no significant disease. * INDICATION: 70 year old male with past medical history of hypertension, coronary artery disease with LAD PCI, atrial fibrillation on amiodarone and Xarelto, congestive heart failure has presented to the hospital with worsening chest pain symptoms for the last 1 week. According to patient he gets severe substernal chest discomfort with minimal exertion. It radiates to the arms. Also has occasional shortness of breath. EKG shows ST depression that are dynamic. Symptoms consistent with unstable angina. * Mid Right Coronary Artery: subtotal occlusion, PEDRO: 2 flow. * Coronary angiography shows right dominance. PCI Status: Emergency PCI Indication: Other Interventional Findings * Procedure detail: We engaged RCA with JR4 guide catheter. IV heparin was administered to maintain ACT above 250 S. 0.014 run-through guidewire was used to cross mid RCA stenosis and was put in distal vessel. We predilated stenosis with 2.75 x 12 mm 70 compliant balloon. This was followed by placement of 4.0 x 18 mm resolute [place] drug-eluting stent. We postdilated the proximal portion of the stent with 4.5 x 8 mm NC balloon. At this time final angiogram was performed that showed excellent stent expansion, no residual stenosis and PEDRO-3 flow. Guidewire and guide catheter were removed. Patient left the Plate Stacker in a stable condition.. * Mid Right Coronary Artery: 99% stenosis treated with a AB TREK 2.75X12 RX BALLOON, MDT R AMADOR 4.0X18 ROSAMARIA, and MDT ARTEM EUPHORA RX [id number] BALLOON. 0% residual stenosis, PEDRO: 3 flow. Conclusions 1. Critical 99% mid RCA stenosis. Status post successful revascularization with ROSAMARIA x1.. 2. Mid Right Coronary Artery was treated with a Balloon, Drug Eluting Stent, and Balloon. Recommendations * Plavix and Xarelto for at least 1 year. * High intensity statin therapy. * Order echocardiogram. Interventional RX Recommendation: PCI w/o planned CABG Diagnostic RX Recommendation: PCI w/o planned CABG Anticoagulation: Heparin Pressures Phase:Rest AO : 121 / 67 ( 92 ) @ 12:25:00 PM 112 / 57 ( 82 ) @ 12:39:00 PM 107 / 56 ( 79 ) @ 12:46:00 PM 106 / 55 ( 77 ) @ 12:51:00 PM 102 / 52 ( 75 ) @ 1:00:00 PM Clinical Evaluation EBL: 5mL-10mL Procedural Details Procedure Consent Obtained. Admit Source: Emergency department. Pre-Procedure Time Out. Identified patient by full name and date of as verbalized by the patient/guarantor. Does the consent match the physician's order: Yes. Accurate & Complete Informed Consent: Yes. Inpatient/Outpatient History & Physical on Chart: Yes. If H&P is completed, is and addenduem needed: N/A; If yes, is the addendum complete: N/A. Visualize and Verify Site with Patient/Guarantor: N/A. Relevant Radiology Images available: N/A. Pre-op teaching completed and patient verbalized understanding. The risks, benefits, and alternatives of sedation and/or procedure were discussed by physician. The patient agrees to continue. Procedure started. [facility] Clinical Fraility Score: 3: Managing Well. Plate Stacker Indications: Worsening Angina. Chest Pain Symptom Assessment: Typical Angina Symptoms. Correct patient, site and procedure confirmed by cath team. Current diagnosis: Unstable angina. PERRLA. 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 Lungs clear x 5 lobes. IV Site on Arrival: 18 gauge in the left hand. IV Fluids: 0.9% NaCl at KVO. 500 mL infused prior to slab inspector. Pre Procedural Pulses: bilateral dorsalis pedis was 2+. Oxygen started at 2liters/min via nasal canula. right groin was prepped with chloroprep then draped in the usual sterile fashion. Baseline sample Acquired. HR: 73 BPM. Physician notified. Physician arrived. Physician scrubbed in. Immediate Pre-Procedure Time Out. Correct Patient: Yes; Correct Procedure: Yes; Correct Site: Yes; Correct Patient Position: Yes; Correct Supplies: Yes; Dried Flammable Prep: Yes; Blood Products Available: N/A;. Lidocaine 1% infiltrated to the right radial. Pre Procedural Pulses: right radial was 2+. A 5 camb[place]ian TIG catheter in over wire. Multiple views taken of left coronary artery. Catheter removed over the standard wire. Catheter removed over the glide wire. A 5 cambodian JR4 catheter in over wire. Catheter out. A 5 cambodian JR4 catheter in over [place] wire. Multiple views taken of right coronary artery. Catheter removed over the glide wire. A 5 cambodian JL4 catheter in over wire. Multiple views taken of left coronary artery. Catheter removed over the glide wire. 6 cambodian JR 4 guide catheter was inserted over the wire. Runthrough guidewire was advanced through the guide catheter to lesion in the mid RCA. Inflation number : 1 A AB TREK 2.75X12 RX BALLOON was prepped and advanced across the Mid RCA , then inflated to 8 FAITH for 0:19 seconds. Side port of sheath attached to Normal Saline flush at KVO to maintain patency. Balloon out. Balloon inserted to lesion in the mid RCA. Inflation number: 2 The AB TREK 2.75X12 RX BALLOON was reinflated across the Mid RCA, to 8 FAIHT for 0:09 seconds. Inflation number: 3 The AB TREK 2.75X12 RX BALLOON was reinflated across the Mid RCA, to 10 FAITH for 0:23 seconds. Balloon out. Results checked. Stent inserted to lesion in the mid RCA. Inflation Number : 4 A MDT R AMADOR 4.0X18 ROSAMARIA -Lot Number#[id number] Exp 05/12/2024 was prepped and advanced across the Mid RCA. The stent was deployed at 12 FAITH for 0:27 seconds. Stent balloon out over wire. Results checked. Inflation number : 5 A MDT NC EUPHORA RX [id number] BALLOON was prepped and advanced across the Mid RCA , then inflated to 12 FAITH for 0:24 seconds. Balloon inserted to lesion in the mid RCA. Inflation number: 6 The MDT NC EUPHORA RX [id number] BALLOON was reinflated across the Mid RCA, to 8 FAITH for 0:14 seconds. Balloon out. Results checked. Wire out. ACT drawn. Results 373 seconds. Therapeutic limits - pre-heparin administration 90-150 seconds and monitoring heparin during a vascular procedure >250 seconds. Guide catheter out. A TR Band was successful obtaining hemostatsis at the Right Radial artery insertion site. TR band placed. Hemostasis obtained. Post Procedure: Pulses reassessed and unchanged. PERRLA. 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 No VTE prophylaxis required. Medication's Wasted: Nitro = 49.6 mg. Medication's Wasted: Lidocaine 1% = 3 mL. Medication's Wasted: Heparin = 1000 u. Total IV fluids: 55 mL. PCI Indication: New Onset Angina. Post-op diagnosis: Severe Obstructive CAD Mid RCA. Complications: none. Estimated blood loss: 5mL-10mL. Responsiveness - Normal response to verbal stimuli; alert and oriented, PERRLA. Airway - Unaffected, no intervention required; spontaneous ventilation. Circulation: W/N/L, pulses unchanged. Nausea/Vomiting: No. Procedure completed. Patient transferred by wheelchair to ICU. Vital chart was stopped. Access Site Site: Right Radial artery Sheath Size: 6 Fr Hemostasis Method: TR Band Hemostasis Success: Successful Procedure Medications Start: 11:17 AM Stop: 11:17 AM Medication: Versed Amount: 1 mg Route: I.V. Start: 11:17 AM Stop: 11:17 AM Medication: Fentanyl Amount: 50 mcg Route: I.V. Start: 11:26 AM Stop: 11: AM Medication: Versed Amount: 1 mg Route: I.V. Start: 11:34 AM Stop: 11:34 AM Medication: Heparin Amount: 8000 units Route: I.V. Start: 11:23 AM Stop: 11:23 AM Medication: Nitrogylcerin Amount: 200 mcg Route: I.A. Start: 11:35 AM Stop: 11:35 AM Medication: Versed Amount: 1 mg Route: I.V. Start: 11:45 AM Stop: 11:45 AM Medication: Fentanyl Amount: 25 mcg Route: I.V. Start: 11:47 AM Stop: 11:47 AM Medication: Heparin Amount: 2000 units Route: I.V. Start: 11:48 AM Stop: 11:48 AM Medication: Versed Amount: 1 mg Route: I.V. Start: 11:55 AM Stop: 11:55 AM Medication: Nitrogylcerin Amount: 200 mcg Route: I.A. Start: 12:05 PM Stop: 12:05 PM Medication: Plavix Amount: 300 mg Route: P.O. I, the attending physician, have reviewed and verified all procedure medications. Yes, all medications given per verbal order Report Signatures Finalized by Harish Thompson MD on 10/06/2021 11:24 AM
--- NOTE | 2021-09-24 11:14 | P.HP_ITS ---
Providers/Chief Complaint Admitting Physician: Harish Thompson MD/Interventional Cardiology Primary Care Provider: Elizabeth Xiao MD Chief Complaint: CHEST PAIN/ POSSIBLE STEMI History of Present Illness Lavon Boone is a 70 year old male with past medical history of hypertension, co ronary artery disease with LAD PCI, atrial fibrillation on amiodarone and Xarelto, congestive heart failure has presented to the hospital with worsening chest pain symptoms for the last 1 week. According to patient he gets severe substernal chest discomfort with minimal exertion. It radiates to the arms. Also has occasional shortness of breath. EKG shows ST depression that are dynamic. Review of Systems Const: Denies: fever(s), chills, fatigue, malaise or diaphoresis ENMT: Denies: throat pain, ear or mastoid pain, nasal discharge or nasal congestion Card: Denies: chest pain, palpitations or syncope Resp: Reports: dyspnea; Denies: productive cough or non-productive cough GI: Denies: abdominal pain, nausea or vomiting : Denies: flank pain, difficulty urinating, dysuria, urinary frequency or urinary urgency Skin/Breast: Denies: rash or pruritus Medications/Allergies Home Medications Medication Instructions Recorded Confirmed Last Taken Type aspirin 81 mg chewable tablet 81 mg PO DAILY 04/02/19 09/24/21 11/12/19 History loratadine 10 mg tablet 10 mg PO DAILY 90 days #90 tabs 08/29/20 09/24/21 Unknown Rx simvastatin 40 mg tablet See Rx Instructions .Route 01/30/21 09/24/21 Unknown Rx .COMPLEX 90 days #90 tabs amlodipine 10 mg tablet 10 mg PO DAILY #90 tabs 02/23/21 09/24/21 Unknown Rx telmisartan 80 1 tab PO DAILY #90 tabs 03/09/21 09/24/21 Unknown Rx mg-hydrochlorothiazide 12.5 mg tablet albuterol sulfate 90 mcg/actuation 2 puff inhalation Q6H PRN 04/09/21 09/24/21 Unknown Rx aerosol inhaler (ProAir HFA) shortness of breath or wheezing #8.5 grams nitroglycerin 0.4 mg sublingual 0.4 mg sublingual Q5M PRN chest 05/09/21 09/24/21 Unknown Rx tablet (Nitrostat) pain #25 tabs amiodarone 200 mg tablet See Rx Instructions .Route 07/30/21 09/24/21 Unknown Rx .COMPLEX #90 tabs tamsulosin 0.4 mg capsule 0.4 mg PO .at bedtime #30 caps 08/01/21 09/24/21 Unknown Rx hydralazine 25 mg tablet 25 mg PO BID #60 tabs 09/12/21 09/24/21 Unknown Rx rivaroxaban 20 mg tablet 20 mg PO DAILY 90 days #90 tabs 09/17/21 09/24/21 Unknown Rx ropinirole 2 mg tablet 2 mg PO DAILY 90 days #90 tabs 09/17/21 09/24/21 Unknown Rx tramadol 50 mg tablet 50 mg PO BID PRN pain #45 tabs 09/17/21 09/24/21 Unknown Rx Allergies Allergy/AdvReac Type Severity Reaction Status Date / Time hydrocodone Allergy ADR-Abdominal Verified 09/24/21 09:08 Pain meperidine [From Demerol] Allergy Unknown Verified 09/24/21 09:08 PFSH Acute PFSH: Medical History Acute thoracic back pain Allergic rhinitis BPH loc w urin obs/LUTS CAD (coronary artery disease) Chronic arthritis Hereditary hemochromatosis Hyperlipidemia Hypertension Lower urinary tract symptoms (LUTS) Restless leg syndrome Restless legs syndrome (RLS) Spinal osteoarthritis Surgical History History of coronary artery stent placement Hx of cardiac catheterization Hx of colonoscopy Hx of hernia repair Family History Mother , at age 94 Cancer Breast cancer Father , at age 88 Prostate cancer Social History Smoking and tobacco status: never smoked Alcohol intake: never Household members: spouse Marital status: Current occupational status: employed and disabled History of recent travel: No Vitals/I&O/Wt Last Vital Signs Pulse 78 09/24/21 11:00 Resp 17 09/24/21 11:00 BP 153/79 09/24/21 11:00 Pulse Ox 93 09/24/21 11:00 O2 Del Method 09/24/21 10:55 O2 Flow Rate 3 09/24/21 10:55 Weight last 48 hrs Weight 255 lb Weight 255 lb Physical Exam Narrative: GENERAL: Patient is alert, awake and oriented x3. [] NECK: No jugular vein distension. [] HEENT: No cyanosis. No icterus. No pallor. [] HEART: Regular S1 and S2. No murmur, rub or gallop. [] LUNGS: Clear to auscultate bilaterally. [] ABDOMEN: Soft, nontender and nondistended. Positive bowel sounds. No guarding, rebound or tenderness. [] CENTRAL NERVOUS SYSTEM: Grossly nonfocal. [] EXTREMITIES: Lower extremities with 1+ edema bilaterally. Pulses palpable in the lower extremities, both dorsalis pedis and posterior tibial. [] Data : 09/24/21 10:35 09/24/21 10:35 A&P Assessment and plan (1) Hyperlipidemia: Status: Acute Qualifiers: Hyperlipidemia type: unspecified Qualified Code(s): E78.5 - Hyperlipidemia, unspecified (2) CAD (coronary artery disease): Status: Acute Qualifiers: Coronary Disease-Associated Artery/Lesion type: [place] artery [place] vs. transplanted heart: [place] heart Associated angina: without angina Qualified Code(s): I25.10 - Atherosclerotic heart disease of [place] coronary artery without angina pectoris (3) Hypertension: Status: Acute Qualifiers: Hypertension type: essential hypertension Qualified Code(s): I10 - Essential (primary) hypertension (4) Unstable angina: Status: Acute Plan Patient has presented with unstable angina and plan is to take him urgently to cardiac Size Cutter. Loaded with aspirin and Plavix. Had last dose of Xarelto last night. Ordering echocardiogram. Post angiogram, based on findings, he will likely need ICU bed. N.p.o. for now Attestations Medical Necessity Statement*: Care not expected to cross 2 midnights. Patient presented with unstable angina underwent successful revascularization of mid RCA with ROSAMARIA x1. Coding Level of Care Code Acute Melt Room Operator for Jeraldg Fwd Diagnoses Hyperlipidemia E78.5 Hyperlipidemia type: unspecified CAD (coronary artery disease) I25.10 Coronary Disease-Associated Artery/Lesion type: [place] artery [place] vs. transplanted heart: [place] heart Associated angina: without angina Hypertension I10 Hypertension type: essential hypertension Unstable angina I20.0
[2021-09-24 11:21] LABS: Troponin(5th) Baseline 28 ng/L (0-15)
[2021-09-24 11:22] LABS: Alanine Aminotransferase 23 U/L (0-41); Albumin Level 4.1 g/dL (3.5-5.2); Alkaline Phosphatase 78 IU/L (40-130); Anion Gap 16.3 (5-19); Aspartate Amino Transferase 18 U/L (0-40); Blood Urea Nitrogen 28 mg/dL (8-23); Calcium 8.7 mg/dL (8.5-10.5); Carbon Dioxide 20 mmol/L (22-29); Chloride 108 mmol/L (98-107); Globulin 2.3 g/dL (1.3-4.6); Glucose 113 mg/dL (65-115); Osmolality Calculated 296 mOsm/kg (285-295); Potassium 4.3 mmol/L (3.5-5.1); Sodium 140 mmol/L (136-145); Total Bilirubin 0.5 mg/dL (0.15-1.2); Total Protein 6.4 g/dL (6.6-8.7)
--- NOTE | 2021-09-24 12:21 | PC.NURSE ---
holding pt in cpru til icu bed available. pt received after lhc, right wrist with tr band with no hematoma or bruising noted. distal radial pulse palpable. pt complains of no pain. pt educated on restrictions of right wrist and acknowledged understanding. to be monitored per protocol and until pt transferred to icu.
--- NOTE | 2021-09-24 12:53 | USCV_ITS ---
Lavon Boone Age: 70 Gender: M : 1950 Exam Date: 09/24/2021 14:50 Ordering Phys: Harish Thompson M.D ([email or web address]) Technologist: Fabiano Gaona Exam Location: [facility] – [place] Indication: unstable angina BP: 126 / 75 HR: 56 Rhythm: Sinus Technical Quality: Fair MEASUREMENTS (Male / Female) Normal Values 2D ECHO LV Diastolic Diameter PLAX 3.6 cm 4.2 - 5.9 / 3.9 - 5.3 cm LV Systolic Diameter PLAX 2.2 cm IVS Diastolic Thickness 1.3 cm 0.6 - 1.0 / 0.6 - 0.9 cm IVS Systolic Thickness 1.1 cm LVPW Diastolic Thickness 1.4 cm 0.6 - 1.0 / 0.6 - 0.9 cm LVPW Systolic Thickness 1.5 cm LVOT Diameter 2.0 cm LV Ejection Fraction 2D Teich 68.1 % LV Ejection Fraction MOD 2C 57.8 % LV Ejection Fraction 2C AL 58.5 % LA Diameter 3.7 cm LA Width 3.1 cm LA Height 5.1 cm RA Width 3.6 cm RA Height 4.1 cm Aorta at Sinotubular Diameter 2.7 cm IVC Diameter 2.6 cm M-MODE Aortic Annulus Diameter 3.4 cm LA Ao Ratio MM 1.1 MV E Point Septal Separation 0.7 cm DOPPLER AV Peak Velocity 111.0 cm/s LVOT Peak Velocity 88.0 cm/s AV Area Cont Eq vti 2.9 cm squared AV Area Cont Eq pk 2.5 cm squared MV Peak Velocity 99.0 cm/s MV Area PHT 7.1 cm squared Mitral E to A Ratio 1.4 MV E' Velocity 35.0 cm/s Mitral E to MV E' Ratio 4.7 Mitral E to LV E' Lateral Ratio 4.5 Mitral E to LV E' Septal Ratio 5.0 TR Peak Velocity 199.3 cm/s TR Peak Gradient 15.9 mmHg TR Mean Velocity 155.4 cm/s TR Mean Gradient 10.2 mmHg TR Velocity Time Integral 51.3 cm Right Atrial Pressure 8.0 mmHg Pulmonary Artery Systolic Pressu 23.9 mmHg RV Acceleration Time 0.1 s RV Ejection Time 0.3 s RV AcT/ET 0.4 FINDINGS Left Ventricle Left ventricle is normal in size. LV systolic function is normal with EF of 55-60%. No regional wall motion abnormalities are seen. Diastolic function is normal Right Ventricle Normal in size and function Right Atrium Normal in size Left Atrium Normal in size Mitral Valve Structurally normal mitral valve. Mild mitral regurgitation. Aortic Valve Grossly normal. No significant stenosis or regurgitation is seen. Tricuspid Valve Mild tricuspid regurgitation. Insufficient TR jet to calculate RVSP. Pulmonic Valve Not well-visualized Pericardium Grossly normal Aorta Normal in size IVC CONCLUSIONS Technically limited quality echocardiogram because of poor ultrasonic windows. LV systolic function is normal with EF 55-60% Mild mitral regurgitation Mild tricuspid regurgitation. No comparison studies are available Harish Thompson MD (Electronically Signed) Final Date: 29 September 2021 13:42 S
--- NOTE | 2021-09-24 13:23 | ECG_ITS ---
[facility] Test Date: 2021-09-24 Pat Name: Lavon Boone Department: Room: [facility] Gender: Male It Security Administrator: : 1950 Requested By: Leo Gonzalez Order Number: [id number] Criselda MD: Monse Huerta M.D. Measurements Intervals [place] Rate: 54 P: 57 DE: 247 QRS: -4 QRSD: 92 T: -11 QT: 455 QTc: 434 Interpretive Statements SINUS BRADYCARDIA WITH FIRST DEGREE AV BLOCK MINIMAL VOLTAGE CRITERIA FOR LVH, CONSIDER NORMAL VARIANT [MEETS CRITERIA IN ONE OF: R(aVL), S(V1), R(V5), R(V5/V6)+S(V1)] Compared to ECG 09/24/2021 10:46:58 Sinus rhythm no longer present T-wave abnormality no longer present Electronically Signed On 09-25-2021 0:57:24 CDT by Monse Huerta M.D. [id number]
[2021-09-24] MEDS: amlodipine 10 mg Tablet PO (13:27)
[2021-09-24] MEDS: sodium chloride 0.45% 1,000 ML 100 ML IV (13:37)
--- NOTE | 2021-09-24 16:39 | ECG_ITS ---
[facility] Test Date: 2021-09-24 Pat Name: Lavon Boone Department: Room: ICU04 Gender: Male Senior Planner: : 1950 Requested By: Leo Gonzalez Order Number: [id number] Criselda MD: Harish Thompson M.D. Measurements Intervals [place] Rate: 55 P: 77 NM: 256 QRS: -6 QRSD: 90 T: -1 QT: 446 QTc: 427 Interpretive Statements SINUS BRADYCARDIA WITH FIRST DEGREE AV BLOCK MINIMAL VOLTAGE CRITERIA FOR LVH, CONSIDER NORMAL VARIANT [MEETS CRITERIA IN ONE OF: R(aVL), S(V1), R(V5), R(V5/V6)+S(V1)] Compared to ECG 09/24/2021 13:23:11 No significant changes Electronically Signed On 09-25-2021 19:03:48 CDT by Harish Thompson M.D. [id number]
--- NOTE | 2021-09-24 18:00 | PM.MISC ---
Miscellaneous Note Purpose of Documentation: Brief procedure note Note: LEFT heart cath: Patent left main, LAD and left circumflex artery. Patent LAD stent prior to stent. RCA: Mid vessel has critical 99% stenosis. Status post successful revascularization with ROSAMARIA x1. Continue aspirin and Plavix for now. Will restart Xarelto tomorrow Order echocardiogram
[2021-09-24] MEDS: atorvastatin 40 mg Tablet 80 MG PO (20:54)
[2021-09-25] VITALS (24 sets, daily range): BP systolic 104–142; BP diastolic 55–75; PULSE 46–73; RESP 13–21; TEMP 36.5; O2SAT 91–95
[2021-09-25] MEDS: sodium chloride 0.45% 1,000 ML 100 ML IV (04:38)
[2021-09-25 05:37] LABS: Basophils % 0.5 %; Eosinophils # 0.2 10^3/uL (0.0-0.8); Eosinophils % 2.3 %; Hematocrit 45.3 % (42.0-52.0); Hemoglobin 14.4 g/dL (11.7-16.6); Lymphocytes # 1.1 10^3/uL (0.8-4.8); Lymphocytes % 15.6 %; Mean Corpuscular HGB Conc 31.8 g/dL (30.0-36.0); Mean Corpuscular Hemoglobin 32.1 pg (28.0-34.0); Mean Corpuscular Volume 101.1 fl (80-94); Mean Platelet Volume 9.8 fL (7.4-10.4); Monocytes # 0.9 10^3/uL (0.2-0.9); Monocytes % 12.3 %; Neutrophils # 5.04 10^3/uL (1.8-7.7); Nucleated Red Blood Cells % 0 %; Platelet Count 153 10^3/cmm (130-400); Red Blood Count 4.48 10^6/uL (4.1-5.3); Red Cell Distribution Width 12.6 % (12.1-15.1); White Blood Count 7.3 10^3/uL (4.0-10.0)
[2021-09-25 06:11] LABS: Anion Gap 15.3 (5-19); Blood Urea Nitrogen 19 mg/dL (8-23); Calcium 8.8 mg/dL (8.5-10.5); Carbon Dioxide 21 mmol/L (22-29); Chloride 106 mmol/L (98-107); Glucose 93 mg/dL (65-115); Osmolality Calculated 288 mOsm/kg (285-295); Potassium 4.3 mmol/L (3.5-5.1); Sodium 138 mmol/L (136-145)
--- NOTE | 2021-09-25 06:21 | PC.NURSE ---
Shift Summary Frequent safety and comfort rounds continue. Orders and/or nursing care completed as indicated. Patient monitored for response to intervention and treatment(s). Education provided includes medications. Patient verbalize understanding of teaching. Will continue to monitor. Patient had an uneventful shift, remains alert & oriented x4. No wounds or skin issues noted at this time. IVF infusing per protocol, please see MAR for infusion rate. Patient ambulates ad ormán.
--- NOTE | 2021-09-25 08:32 | P.DS_ITS ---
Discharge Providers Date of Admission: 09/24/21 13:01 Date of Discharge: September 25, 2021 Attending Provider at Admission: Harish Thompson M.D Attending Provider at Discharge: Harish Thompson M.D Primary Care Provider: Elizabeth Xiao MD Diagnoses at Discharge Discharge Diagnosis (1) Hyperlipidemia: Status: Acute Qualifiers: Hyperlipidemia type: unspecified Qualified Code(s): E78.5 - Hyperlipidemia, unspecified (2) CAD (coronary artery disease): Status: Acute Qualifiers: Associated angina: without angina Coronary Disease-Associated Anabel ry/Lesion type: [place] artery [place] vs. transplanted heart: [place] heart Qualified Code(s): I25.10 - Atherosclerotic heart disease of [place] coronary artery without angina pectoris (3) Hypertension: Status: Acute Qualifiers: Hypertension type: essential hypertension Qualified Code(s): I10 - Essential (primary) hypertension (4) Unstable angina: Status: Inactive Reason for Visit Reason for Visit: CHEST PAIN/ POSSIBLE STEMI Brief History: 70 year old male with past medical history of hypertension, coronary artery disease with LAD PCI, atrial fibrillation on amiodarone and Xarelto, congestive heart failure has presented to the hospital with worsening chest pain symptoms for the last 1 week.? According to patient he gets severe substernal chest discomfort with minimal exertion.? It radiates to the arms.? Also has occasional shortness of breath.? EKG shows ST depression that are dynamic. Hospital Course Hospital Course Coronary angiogram was performed that showed critical 99% mid RCA stenosis. He underwent successful revascularization with ROSAMARIA x1. Echocardiogram showed normal LV systolic function. Patient was observed overnight and he stayed stable. Was discharged home in a stable condition on Xarelto and Plavix. Physical Exam Narrative: GENERAL: Patient is alert, awake and oriented x3. [] NECK: No jugular vein distension. [] HEENT: No cyanosis. No icterus. No pallor. [] HEART: Regular S1 and S2. No murmur, rub or gallop. [] LUNGS: Clear to auscultate bilaterally. [] ABDOMEN: Soft, nontender and nondistended. Positive bowel sounds. No guarding, rebound or tenderness. [] CENTRAL NERVOUS SYSTEM: Grossly nonfocal. [] EXTREMITIES: Lower extremities with 1+ edema bilaterally. Pulses palpable in the lower extremities, both dorsalis pedis and posterior tibial. 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 echo complete* [id number] Routine Ultrasound 09/24/21 12:53 Taken Radiology Impressions Chest X-Ray 09/24/21 10:39 IMPRESSION: No acute finding. Laboratory Results WBC 7.3 10^3/uL (4.0-10.0) 09/25/21 05:20 RBC 4.48 10^6/uL (4.1-5.3) 09/25/21 05:20 Hgb 14.4 g/dL (11.7-16.6) 09/25/21 05:20 Hct 45.3 % (42.0-52.0) 09/25/21 05:20 MCV 101.1 fl (80-94) H D 09/25/21 05:20 MCH 32.1 pg (28.0-34.0) 09/25/21 05:20 MCHC 31.8 g/dL (30.0-36.0) D 09/25/21 05:20 RDW 12.6 % (12.1-15.1) 09/25/21 05:20 Plt Count 153 10^3/cmm (130-400) 09/25/21 05:20 MPV 9.8 fL (7.4-10.4) 09/25/21 05:20 Neut % (Auto) 69.0 % 09/25/21 05:20 Lymph % (Auto) 15.6 % 09/25/21 05:20 [place] % (Auto) 12.3 % 09/25/21 05:20 Eos % (Auto) 2.3 % 09/25/21 05:20 Baso % (Auto) 0.5 % 09/25/21 05:20 Neut # (Auto) 5.04 10^3/uL (1.8-7.7) 09/25/21 05:20 Lymph # (Auto) 1.1 10^3/uL (0.8-4.8) 09/25/21 05:20 [place] # (Auto) 0.9 10^3/uL (0.2-0.9) 09/25/21 05:20 Eos # (Auto) 0.2 10^3/uL (0.0-0.8) 09/25/21 05:20 Baso # (Auto) 0.0 10^3/uL (0.0-0.1) 09/25/21 05:20 Nucleated RBC % (auto) 0 % 09/25/21 05:20 Nucleated RBCs # 0.0 /100WBC 09/25/21 05:20 Sodium 138 mmol/L (136-145) 09/25/21 05:20 Potassium 4.3 mmol/L (3.5-5.1) 09/25/21 05:20 Chloride 106 mmol/L (98-107) 09/25/21 05:20 Carbon Dioxide 21 mmol/L (22-29) L 09/25/21 05:20 Anion Gap 15.3 (5-19) 09/25/21 05:20 BUN 19 mg/dL (8-23) 09/25/21 05:20 Creatinine 0.8 mg/dL (0.7-1.2) 09/25/21 05:20 GFR Calculation Not Reportable 09/25/21 05:20 Glucose 93 mg/dL (65-115) 09/25/21 05:20 Calculated Osmolality 288 mOsm/kg (285-295) 09/25/21 05:20 Calcium 8.8 mg/dL (8.5-10.5) 09/25/21 05:20 Total Bilirubin 0.5 mg/dL (0.15-1.2) 09/24/21 10:35 AST 18 U/L (0-40) 09/24/21 10:35 ALT 23 U/L (0-41) 09/24/21 10:35 Alkaline Phosphatase 78 IU/L (40-130) 09/24/21 10:35 Troponin T Baseline 28 ng/L (0-15) H 09/24/21 10:35 Total Protein 6.4 g/dL (6.6-8.7) L 09/24/21 10:35 Albumin 4.1 g/dL (3.5-5.2) 09/24/21 10:35 Globulin 2.3 g/dL (1.3-4.6) 09/24/21 10:35 Vitals Last Vital Signs Temp 97.7 F 09/25/21 04:00 Pulse 52 L 09/25/21 07:51 Resp 16 09/25/21 05:00 BP 132/75 09/25/21 05:00 Pulse Ox 92 09/25/21 07:51 O2 Del Method 09/25/21 07:51 O2 Flow Rate 3 09/24/21 10:55 Discharge Plan Discharge Patient Disposition: Home Condition: Stable Prescriptions: New clopidogrel 75 mg Tablet 75 mg PO DAILY Qty: 90 3RF Continued albuterol sulfate [ProAir HFA] 90 mcg/actuation HFA aerosol inhaler 2 puff inhalation Q6H PRN (Reason: shortness of breath or wheezing) Qty: 8.5 0RF tramadol 50 mg tablet 50 mg PO BID PRN (Reason: pain) Qty: 45 0RF ropinirole 2 mg tablet 2 mg PO DAILY 90 Days Qty: 90 1RF Rx Instructions: 1 hr before bed rivaroxaban 20 mg tablet 20 mg PO DAILY 90 Days Qty: 90 1RF Rx Instructions: 340B This needs to be sent to [place] [facility] hydralazine 25 mg tablet 25 mg PO BID Qty: 60 0RF loratadine 10 mg tablet 10 mg PO DAILY 90 Days Qty: 90 3RF amlodipine 10 mg tablet 10 mg PO DAILY Qty: 90 3RF telmisartan-hydrochlorothiazid 80-12.5 mg tablet 1 tab PO DAILY Qty: 90 3RF nitroglycerin [Nitrostat] 0.4 mg tablet, sublingual 0.4 mg sublingual Q5M PRN (Reason: chest pain) Qty: 25 3RF Rx Instructions: do not exceed 3 doses per episode Discontinued simvastatin 40 mg tablet See Rx Instructions .ROUTE .COMPLEX 90 Days Qty: 90 1RF Dose Instruction: TAKE 1 TABLET BY MOUTH ONCE DAILY AT BEDTIME Rx Instructions: TAKE 1 TABLET BY MOUTH ONCE DAILY AT BEDTIME aspirin 81 mg Tablet,Chewable 81 mg PO DAILY No Action atorvastatin 80 mg tablet 80 mg PO BEDTIME Qty: 90 3RF amiodarone 200 mg tablet 200 mg PO DAILY tamsulosin 0.4 mg capsule 0.4 mg PO BEDTIME Discharge Orders: Discharge Order (Routine); Ordered 09/25/21 Ordered By: Harish Thompson Referrals: Khloe Ospina FNP [Nurse Practitioner] - 7-10 days (Please follow-up with Khloe Ospina on October 03 at 10:45A.M. If you have any questions or need to reschedule. Please call ) Cindi Gonzalez MD [Physician] - 1 month (Please follow-up with Dr. Gonzalez on at 2:30P.M. If you have any questions or need to reschedule. Please call ) Elizabeth Xiao MD [Primary Care Provider] - (Please follow-up with Dr. Xiao on September 27 at 11:30A.M. If you have any questions or need to reschedule. Please call ) Discharge Diet: Cardiac Discharge Activity: Increase activity as tolerated Patient Instructions: Atorvastatin (By mouth), Clopidogrel (By mouth) (Plavix), Coronary Angioplasty (DC), Chest Pain Stoplight, Opioid Safety, Post Angiogram Home Care Instructions Activity Restrictions/Additional Instructions: Please do not lift more than 5 pounds of weight for the next 5 days Discharge Attestations Time Spent in Discharge Care*: greater than 30 min Status at Discharge: Cognitive status at discharge: cognitively intact , Behavioral status at discharge: cooperative , Quality Metrics Clinical Quality Measures [ No reported AMI, CVA or VTE this stay] Coding Level of Care Code Acute Chg FW DC note Diagnoses Hyperlipidemia E78.5 Hyperlipidemia type: unspecified CAD (coronary artery disease) I25.10 Associated angina: without angina Coronary Disease-Associated Artery/Lesion type: [place] artery [place] vs. transplanted heart: [place] heart Hypertension I10 Hypertension type: essential hypertension Unstable angina I20.0
[2021-09-25] MEDS: amlodipine 10 mg Tablet PO (08:43)
[2021-09-25] MEDS: aspirin 81 mg EC Tablet PO (08:43)
[2021-09-25] MEDS: clopidogrel 75 mg Tablet PO (08:43)
--- NOTE | 2021-09-25 09:31 | PC.CHAP ---
Pastoral Care Encounter/Spiritual Assessment Type of Contact [] Declined neurodiagnostic tech visit [] Patient/Family/Request visit [] Outpatient visit [] Follow-up visit [] Physician referral [] Code/Alert [x] Routine visit [] Staff referral [] Actively dying [] Patient sleeping [] Family support [] [] Out of room [] Palliative care [] [x] Receiving care in room [] Pre-surgical visit [] Trauma [] Long length of stay [x] ICU visit [] Other: Relational/Emotional Strength [] Patient feels connected with others/family/visitors/staff [] Distress [] Loneliness/isolation [] Abandonment Spirituality of Patient [] Person of Candy [] Attends Hinduism of their Candy [] Believes in Prayer [] Reads Bible or Confucianism materials [] There are Spiritual issues to be addressed Food Scientist Interventions [x] Prayer [] Active listening [] Non-anxious presence [] Spiritual/emotional support [] Crisis/trauma care [] Spiritual counseling [] Bereavement support [] Provided bereavement packet [] Provided Bible/devotional materials [] Provided toy/stuffed animal, coloring book to patient or family member [] Provided Communion [] Anointing/[place] [] Salvation [x] Completed spiritual assessment [] Other: Impact on Illness or Injury [] Angry [] Fearful [] Anxious [] Often cries [] Exhaustion [] Unable to work [] Unable to attend jehovah's witness [] Unable to walk/stand [] Unable to read [] Unable to drive [] Unable to eat/drink [] Unable to sleep [] Unable to be with family [] Patient intubated [] Other: Summary Time spent with patient
== END 2021-09-25 10:20 | disposition home or self-care (01) ==
LOC: ER 10:53 → CCL 11:06 → ICU 12:58 → CCL 13:01 → ICU 23:58
PROVIDERS: Admitting Provider Internal Medicine; Emergency Provider Family Medicine; PCP Family Medicine; Visit Provider Internal Medicine
DX: I25.110 Atherosclerotic heart disease of native coronary artery with unstable angina pectoris (principal); E78.5 Hyperlipidemia, unspecified; I48.91 Unspecified atrial fibrillation; Z79.01 Long term (current) use of anticoagulants; I11.0 Hypertensive heart disease with heart failure; I50.9 Heart failure, unspecified; Z79.82 Long term (current) use of aspirin; N40.1 Benign prostatic hyperplasia with lower urinary tract symptoms; N13.8 Other obstructive and reflux uropathy; Z95.5 Presence of coronary angioplasty implant and graft
CPT/HCPCS: 36415; 71045; 80048; 80053; 84484; 85025; 85347; 93005; 93306; 93454; 96360; 96361; 96374; 96375; 99152; 99153; 99285; C1725; C1769; C1874; C1887; C1894; C9600; G0378; J1644; J2250; J2270; J2405; J3010; J3490; J7030; J7040; Q9967

== ENCOUNTER → 2021-10-03 10:25 | Outpatient (BNVA) | payer MEDICARE, SELFPAY | PROVIDERS: PCP Family Medicine; Visit Provider Nurse Practitioner Family | DX: I25.10 Atherosclerotic heart disease of native coronary artery without angina pectoris (principal); I11.0 Hypertensive heart disease with heart failure; I50.9 Heart failure, unspecified | CPT/HCPCS: 36415; 80048; 99214 ==

== ENCOUNTER → 2021-10-30 09:56 | Outpatient (BNVA) | payer MEDICARE, SELFPAY | PROVIDERS: PCP Family Medicine; Visit Provider Urology | DX: N40.1 Benign prostatic hyperplasia with lower urinary tract symptoms (principal); R35.89 Other polyuria | CPT/HCPCS: 51741; 51798; 99213 ==

== ENCOUNTER → 2021-11-08 10:48 | Outpatient (BNVA) | payer MEDICARE, SELFPAY | PROVIDERS: PCP Family Medicine; Visit Provider Internal Medicine Cardiovascular Disease | DX: I11.0 Hypertensive heart disease with heart failure (principal); I50.9 Heart failure, unspecified; I48.0 Paroxysmal atrial fibrillation; Z79.01 Long term (current) use of anticoagulants; I25.10 Atherosclerotic heart disease of native coronary artery without angina pectoris; E78.5 Hyperlipidemia, unspecified | CPT/HCPCS: 99214 ==

== ENCOUNTER → 2021-11-12 10:43 | Outpatient (BNVA) | payer MEDICARE, SELFPAY | PROVIDERS: PCP Family Medicine; Visit Provider Urology | DX: N40.1 Benign prostatic hyperplasia with lower urinary tract symptoms (principal); R35.89 Other polyuria | CPT/HCPCS: 81003 ==

== ENCOUNTER → 2021-11-26 09:29 | Outpatient (BNVA) | payer MEDICARE, SELFPAY | PROVIDERS: PCP Family Medicine; Visit Provider Nurse Practitioner Family | DX: S93.401A Sprain of unspecified ligament of right ankle, initial encounter (principal); E78.5 Hyperlipidemia, unspecified; I25.10 Atherosclerotic heart disease of native coronary artery without angina pectoris; I48.91 Unspecified atrial fibrillation | CPT/HCPCS: 73610; 80048; 83735; 83880 ==

== ENCOUNTER → 2021-11-28 10:07 | Outpatient (BNVA) | payer MEDICARE, SELFPAY | PROVIDERS: PCP Family Medicine; Referring Provider Nurse Practitioner Family; Visit Provider Podiatrist Foot & Ankle Surgery | DX: S92.101A Unspecified fracture of right talus, initial encounter for closed fracture (principal); X50.9XXA Other and unspecified overexertion or strenuous movements or postures, initial encounter; R60.0 Localized edema | CPT/HCPCS: 99204 ==

== ENCOUNTER → 2021-12-16 09:58 | Outpatient (BNVA) | payer MEDICARE, SELFPAY | PROVIDERS: PCP Family Medicine; Visit Provider Emergency Medicine | DX: R68.89 Other general symptoms and signs (principal); J20.9 Acute bronchitis, unspecified | CPT/HCPCS: 87400 ==

== ENCOUNTER → 2021-12-18 08:52 | Outpatient (BNVA) | payer MEDICARE, SELFPAY | PROVIDERS: PCP Family Medicine; Visit Provider Family Medicine | DX: M19.90 Unspecified osteoarthritis, unspecified site (principal); S92.101A Unspecified fracture of right talus, initial encounter for closed fracture; S92.101D Unspecified fracture of right talus, subsequent encounter for fracture with routine healing; I50.9 Heart failure, unspecified; I10 Essential (primary) hypertension; M54.6 Pain in thoracic spine; J20.9 Acute bronchitis, unspecified | CPT/HCPCS: 73610 ==

== ENCOUNTER → 2021-12-24 09:49 | Outpatient (BNVA) | payer MEDICARE, SELFPAY | PROVIDERS: PCP Family Medicine; Visit Provider Podiatrist Foot & Ankle Surgery | DX: S92.101D Unspecified fracture of right talus, subsequent encounter for fracture with routine healing (principal); R60.0 Localized edema; X58.XXXD Exposure to other specified factors, subsequent encounter | CPT/HCPCS: 99213 ==

== ENCOUNTER → 2021-12-30 14:30 | Outpatient (BNVA) | payer MEDICARE, SELFPAY | PROVIDERS: PCP Family Medicine; Visit Provider Emergency Medicine | DX: R05.9 Cough, unspecified (principal) | CPT/HCPCS: 71046 ==

== ENCOUNTER → 2022-01-24 13:25 | Outpatient (BNVA) | payer MEDICARE, SELFPAY | PROVIDERS: PCP Family Medicine; Visit Provider Family Medicine | DX: R05.3 Chronic cough (principal) | CPT/HCPCS: 71046 ==

== ENCOUNTER → 2022-06-11 09:52 | Outpatient (BNVA) | payer MEDICARE, SELFPAY | PROVIDERS: PCP Family Medicine; Visit Provider Family Medicine | DX: I48.91 Unspecified atrial fibrillation (principal); M19.90 Unspecified osteoarthritis, unspecified site; G47.10 Hypersomnia, unspecified; E83.110 Hereditary hemochromatosis; I10 Essential (primary) hypertension; E78.5 Hyperlipidemia, unspecified; I50.42 Chronic combined systolic (congestive) and diastolic (congestive) heart failure; E03.9 Hypothyroidism, unspecified; R53.83 Other fatigue; M54.6 Pain in thoracic spine | CPT/HCPCS: 80053; 80061; 83540; 83880; 84443; 85025 ==

== ENCOUNTER → 2022-09-03 08:32 | Outpatient (BNVA) | payer MEDICARE, SELFPAY | PROVIDERS: PCP Family Medicine; Visit Provider Family Medicine | DX: E03.9 Hypothyroidism, unspecified (principal) | CPT/HCPCS: 84439; 84443; 84481 ==

== ENCOUNTER → 2022-09-13 11:14 | Outpatient (BNVA) | payer MEDICARE, SELFPAY | PROVIDERS: PCP Family Medicine; Visit Provider Internal Medicine Cardiovascular Disease | DX: I11.0 Hypertensive heart disease with heart failure (principal); I50.42 Chronic combined systolic (congestive) and diastolic (congestive) heart failure; I25.10 Atherosclerotic heart disease of native coronary artery without angina pectoris; E78.5 Hyperlipidemia, unspecified; I48.0 Paroxysmal atrial fibrillation; Z79.01 Long term (current) use of anticoagulants | CPT/HCPCS: 99214 ==

== ENCOUNTER 2023-02-06 05:25 | Emergency (ER) | payer MEDICARE, SELFPAY ==
[2023-02-06] VITALS (29 sets, daily range): BP systolic 114–147; BP diastolic 79–105; PULSE 78–124; RESP 12–27; TEMP 36.4; O2SAT 92–97; BMI 35.9
--- NOTE | 2023-02-06 05:37 | ECG_ITS ---
[facility] Test Date: 2023-02-06 Pat Name: Lavon Boone Department: Room: Gender: Male Medical Radiation Tech: : [id number] Requested By: Lupillo Cavazos Order Number: [id number] Criselda MD: Monse Huerta M.D. Measurements Intervals [place] Rate: 125 P: 0 CT: 0 QRS: -4 QRSD: 94 T: -8 QT: 311 QTc: 449 Interpretive Statements ATRIAL FIBRILLATION WITH RAPID VENTRICULAR RESPONSE WITH ABERRANT CONDUCTION OR VENTRICULAR PREMATURE COMPLEXES MODERATE VOLTAGE CRITERIA FOR LVH, CONSIDER NORMAL VARIANT [MEETS CRITERIA IN ONE OF: R(aVL), S(V1), R(V5), R(V5/V6)+S(V1)] INFERIOR MYOCARDIAL INFARCTION , PROBABLY OLD [40+ ms Q WAVE AND/OR ST/T ABNORMALITY IN II/aVF] Compared to ECG 09/24/2021 16:35:36 Aberrant conduction of supraventricular beat(s) now present Ventricular premature complex(es) now present Myocardial infarct finding now present Sinus bradycardia no longer present First degree AV block no longer present Electronically Signed On 02-07-2023 19:13:43 MECHANICS SUPERVISOR by Monse Huerta M.D. [id number]
--- NOTE | 2023-02-06 05:37 | XRR_ITS ---
PROCEDURE INFORMATION: Exam: XR Chest Exam date and time: 02/06/2023 5:43 AM Age: 72 years old Clinical indication: Tachypnea; Chest wall pain; Additional info: Chest pain, tachycardia TECHNIQUE: Imaging protocol: Radiologic exam of the chest. Views: 1 view. COMPARISON: CR XR chest 2V* [id number] 01/24/2022 1:36 PM FINDINGS: Lungs: Unremarkable. No consolidation. Pleural spaces: Unremarkable. No pleural effusion. No pneumothorax. Heart/Mediastinum: Unremarkable. No cardiomegaly. Diaphragm: Mild relative elevation of the right diaphragm. Bones/joints: Unremarkable. XR/XR chest 1V portable [id number] IMPRESSION: No acute findings.
--- NOTE | 2023-02-06 05:40 | ED_ITS ---
Documented by User: Lupillo Cavazos DO 02/06/23 05:46 HPI - Chest Pain 2 General: Chief Complaint: Arrhythmia/Palpitations Stated Complaint: SOB Time Seen by Provider: 02/06/23 05:27 History of Present Illness: Patient presents to the ER with complaints of tachycardia/atrial fibrillation worse over the last several days. Patient also complaining shortness of breath and chest pain radiates into his bilateral shoulders. Patient said he took 1 nitro and the pain resolved. Patient does have at least 2 stents placed. Patient is seeing Dr. Gonzalez . Per records he has CAD status post PCI to proximal LAD after abnormal stress test. Preserved left ventricular systolic function. Hemochromatosis. Proximal atrial fibrillation he failed sotalol and was placed on amiodarone and cardioverted twice on amiodarone with gnosticist of sinus rhythm. He was in the hospital for STEMI and underwent coronary angiogram with ROSAMARIA x 1 to mid RCA [facility] ED 2 PFSH: Medical History CHF (congestive heart failure), NYHA class III Unstable angina BPH loc w urin obs/LUTS Lower urinary tract symptoms (LUTS) Spinal osteoarthritis Acute thoracic back pain Restless leg syndrome Chronic arthritis Allergic rhinitis Hereditary hemochromatosis Hypertension Restless legs syndrome (RLS) CAD (coronary artery disease) Hyperlipidemia Surgical History Hx of cardiac catheterization History of coronary artery stent placement Hx of hernia repair Hx of colonoscopy Family History Mother , at age 94 Cancer Breast cancer Father , at age 88 Prostate cancer Social History Smoking and tobacco/nicotine status: never used tobacco/nicotine Alcohol intake: never Household members: spouse Marital status: Current occupational status: employed Physical Exam 2 Const: COMMON NORMALS: no acute distress, average body habitus, patient oriented x3, no limitations, healthy appearing, alert and well nourished HENMT: COMMON NORMALS: normocephalic, atraumatic, hearing grossly normal bilaterally, external ears normal, Normal external nose present, moist oral mucous membranes and oropharynx normal HEAD & SCALP: normocephalic and atraumatic NOSE: Normal external nose present EXTERNAL EAR: Yes external ears normal Eye: COMMON NORMALS: Equal, round and reactive pupils present, EOMs intact bilaterally, conjunctivae normal and no scleral icterus CONJUNCTIVA: Yes conjunctivae normal PUPIL: Yes Equal, round and reactive pupils present Neck/C-Spine: COMMON NORMALS: no JVD Chest: COMMONS NORMALS: normal inspection of the chest and normal palpation of entire chest wall Resp: COMMON NORMALS: normal respiratory effort, No retractions, No use of accessory muscles and clear to auscultation bilaterally AUSCULTATION: clear to auscultation bilaterally Cardio: COMMON NORMALS: no JVD, S1 normal heart sound present, S2 normal heart sound present, No gallops present (Cardio), No clicks present (Cardio) and No murmurs present (Cardio); negative for regular rate (Irregularly irregular rhythm tachycardic) and negative for regular rhythm RATE: abnormal rate (Irregularly irregular rhythm tachycardic) RHYTHM: abnormal rhythm HEART SOUNDS: S1 normal heart sound present and S2 normal heart sound present GI: COMMON NORMALS: Normal to inspection, nondistended, normoactive bowel sounds present, Soft to palpation, non-tender, No hepatosplenomegaly present and no masses PALPATION: Yes Soft to palpation and Yes No hepatosplenomegaly present : COMMON NORMALS: Yes no CVA tenderness BLADDER/KIDNEY EXAM: Yes no CVA tenderness Back/Pelvis: COMMON NORMALS: no CVA tenderness Neuro: COMMON NORMALS: patient oriented x3 SENSORIUM/ORIENTATION: Yes alert Course 2 Vital Signs: Vital signs: Vital Signs Temperature 97.5 F L 02/06/23 05:27 Pulse Rate 100 02/06/23 08:35 Respiratory Rate 19 H 02/06/23 08:35 Blood Pressure 139/99 02/06/23 08:45 Pulse Oximetry 93 02/06/23 08:35 Oxygen Delivery Me thod Room Air 02/06/23 06:10 MDM - Chest Pain Differential Diagnosis Unlikely acute massive pulmonary embolism, acute respiratory failure, acute myocardial infarction, cardiac arrest or sudden cardiac Medical Records I reviewed the patient's medical records. Lab Data I reviewed the patient's lab results. 02/06/23 05:37 02/06/23 05:37 Radiology Impressions Chest X-Ray 02/06/23 05:37 IMPRESSION: No acute findings. Laboratory Results WBC 8.39 10^3/uL (3.29-11.43) 02/06/23 05:37 RBC 4.93 10^6/uL (3.85-5.65) 02/06/23 05:37 Hgb 16.20 g/dL (11.27-16.99) 02/06/23 05:37 Hct 47.6 % (37-53) 02/06/23 05:37 MCV 96.6 fl (82-101) 02/06/23 05:37 MCH 32.9 pg (27-33) 02/06/23 05:37 MCHC 34.0 g/dL (30-55) 02/06/23 05:37 RDW 13.2 % (12.1-15.1) 02/06/23 05:37 Plt Count 165 10^3/cmm (157-399) 02/06/23 05:37 MPV 9.7 fL (7.4-10.4) 02/06/23 05:37 Neut % (Auto) 57.1 % 02/06/23 05:37 Lymph % (Auto) 29.2 % 02/06/23 05:37 Lane % (Auto) 11.3 % 02/06/23 05:37 Eos % (Auto) 1.3 % 02/06/23 05:37 Baso % (Auto) 0.6 % 02/06/23 05:37 Neut # (Auto) 4.79 10^3/uL (1.8-7.7) 02/06/23 05:37 Lymph # (Auto) 2.5 10^3/uL (0.8-4.8) 02/06/23 05:37 Lane # (Auto) 1.0 10^3/uL (0.2-0.9) H 02/06/23 05:37 Eos # (Auto) 0.1 10^3/uL (0.0-0.8) 02/06/23 05:37 Baso # (Auto) 0.1 10^3/uL (0.0-0.1) 02/06/23 05:37 Nucleated RBC % (auto) 0 % 02/06/23 05:37 Nucleated RBCs # 0.0 /100WBC 02/06/23 05:37 PT 18.00 SECONDS (12.1-14.9) H 02/06/23 05:50 INR 1.44 (0.8-1.2) H 02/06/23 05:50 Sodium 137 mmol/L (136-145) 02/06/23 05:37 Potassium 4.1 mmol/L (3.5-5.1) 02/06/23 05:37 Chloride 104 mmol/L (98-107) 02/06/23 05:37 Carbon Dioxide 21 mmol/L (22-29) L 02/06/23 05:37 Anion Gap 16.1 (5-19) 02/06/23 05:37 BUN 21 mg/dL (8-23) 02/06/23 05:37 Creatinine 1.3 mg/dL (0.7-1.2) H 02/06/23 05:37 GFR Calculation Not Reportable 02/06/23 05:37 Glucose 105 mg/dL (65-115) 02/06/23 05:37 Calculated Osmolality 287 mOsm/kg (285-295) 02/06/23 05:37 Calcium 9.1 mg/dL (8.5-10.5) 02/06/23 05:37 Magnesium 2.1 mg/dL (1.7-2.3) 02/06/23 05:37 Total Bilirubin 0.8 mg/dL (0.15-1.2) 02/06/23 05:37 AST 19 U/L (0-40) 02/06/23 05:37 ALT 31 U/L (0-41) 02/06/23 05:37 Alkaline Phosphatase 89 U/L (40-130) 02/06/23 05:37 Troponin T Baseline 22 ng/L (0-15) H 02/06/23 05:37 Troponin T 120 Minute 18.72 ng/L (0-15) H 02/06/23 07:30 Delta Troponin T -3.28 ABS# (0-10) L 02/06/23 07:30 Total Protein 6.4 g/dL (6.6-8.7) L 02/06/23 05:37 Albumin 4.3 g/dL (3.5-5.2) 02/06/23 05:37 Globulin 2.1 g/dL (1.3-4.6) 02/06/23 05:37 TSH 3.39 uIU/mL (0.27-4.20) 02/06/23 05:37 All radiology interpretation(s) finalized by discharge EKG Data EKG 1: I personally reviewed and interpreted this EKG as follows: EKG interpretation date: 02/06/23 EKG interpretation time: 05:33 Prior EKG tracings: available for review Interpretation: EKG showed ventricular rate 125 bpm, QRS duration 94, QTc of 385, atrial fibrillation with RVR, Discharge Plan Discharge Patient Disposition: Home Clinical Impression: Atrial fibrillation with RVR Condition: Stable Prescriptions: Changed amiodarone 200 mg tablet 100 mg PO BID Qty: 30 0RF No Action albuterol sulfate [ProAir HFA] 90 mcg/actuation HFA aerosol inhaler 2 puff inhalation Q6H PRN (Reason: shortness of breath or wheezing) Qty: 8.5 0RF ropinirole 2 mg tablet 2 mg PO BID 90 Days Qty: 180 1RF tamsulosin 0.4 mg capsule 0.4 mg PO BEDTIME 90 Days Qty: 90 1RF atorvastatin 80 mg tablet 80 mg PO BEDTIME Qty: 90 3RF hydralazine 25 mg tablet 25 mg PO BID Qty: 180 3RF nitroglycerin 0.4 mg tablet, sublingual See Rx Instructions .ROUTE .COMPLEX Qty: 25 2RF Dose Instruction: DISSOLVE ONE TABLET UNDER THE TONGUE EVERY 5 MINUTES NEEDED FOR CHEST PAIN. DO NOT EXCEED A TOTAL OF 3 DOSES IN 15 MINUTES Rx Instructions: DISSOLVE ONE TABLET UNDER THE TONGUE EVERY 5 MINUTES NEEDED FOR CHEST PAIN. DO NOT EXCEED A TOTAL OF 3 DOSES IN 15 MINUTES Aspir-81 81 mg Tablet,Delayed Release (Dr/Ec) 81 mg PO QAM amlodipine 10 mg tablet 10 mg PO QAM levothyroxine 50 mcg tablet 50 mcg PO QPM telmisartan-hydrochlorothiazid 80-12.5 mg tablet 1 tab PO QAM Xarelto 20 mg tablet 20 mg PO DAILY Discharge Orders: Discharge ED (Routine); Ordered 02/06/23 Ordered By: Leo Roque Referrals: Elizabeth Xiao MD [Primary Care Provider] - Discharge Diet: Usual diet Discharge Activity: Limit activity as instructed Patient Instructions: Opioid Safety, Pain Management Activity Restrictions/Additional Instructions: Thank you for choosing [facility] for your healthcare needs today. Please realize this is an emergency room and that we are providing you with a medical screening exam and this may not be complete and all inclusive of all the testing and or work up that you may need to determine your ailment or severity of your illness. It is very important that you follow up as instructed or that you return to the Emergency Department should you have concerns or if your condition changes or worsens in any way. Follow-up with your primary doctor with cardiology within the next 10 to 14 days. Sign Out Sign Out Data: Patient Sign Out occurred on 02/06/23 at 06:12. Patient's care was discussed, and care was transferred from Lupillo Cavazos DO to Leo Roque DO. Coding Level of Care Code ED Gold Reclaimer for Chg Fwd Documented by User: Leo Roque DO 02/06/23 13:49 HPI - Chest Pain 2 General: Chief Complaint: Arrhythmia/Palpitations Stated Complaint: SOB Time Seen by Provider: 02/06/23 05:27 PFS ED 2 PFSH: Medical History CHF (congestive heart failure), NYHA class III Unstable angina BPH loc w urin obs/LUTS Lower urinary tract symptoms (LUTS) Spinal osteoarthritis Acute thoracic back pain Restless leg syndrome Chronic arthritis Allergic rhinitis Hereditary hemochromatosis Hypertension Restless legs syndrome (RLS) CAD (coronary artery disease) Hyperlipidemia Surgical History Hx of cardiac catheterization History of coronary artery stent placement Hx of hernia repair Hx of colonoscopy Family History Mother , at age 94 Cancer Breast cancer Father , at age 88 Prostate cancer Social History Smoking and tobacco/nicotine status: never used tobacco/nicotine Alcohol intake: never Household members: spouse Marital status: Current occupational status: employed Course 2 Vital Signs: Vital signs: Vital Signs Temperature 97.5 F L 02/06/23 05:27 Pulse Rate 100 02/06/23 08:35 Respiratory Rate 19 H 02/06/23 08:35 Blood Pressure 139/99 02/06/23 08:45 Pulse Oximetry 93 02/06/23 08:35 Oxygen Delivery Me thod Room Air 02/06/23 06:10 MDM - Chest Pain Medical Decision Making Care assumed at change of shift. Patient is given another 10 mg of IV push Cardizem and started on a drip simultaneously was given 200 of amiodarone. We were able to eventually titrate the drip off and he felt much better his rate was controlled we ambulated him he had no further tachycardias. Will discharge him home increase his amiodarone to 100 mg twice a day he had been taking 100 mg once daily. Have him follow-up with a contracting engineer within the Medical Records I reviewed the patient's medical records. Lab Data I reviewed the patient's lab results. 02/06/23 05:37 02/06/23 05:37 Radiology Impressions Chest X-Ray 02/06/23 05:37 IMPRESSION: No acute findings. Laboratory Results WBC 8.39 10^3/uL (3.29-11.43) 02/06/23 05:37 RBC 4.93 10^6/uL (3.85-5.65) 02/06/23 05:37 Hgb 16.20 g/dL (11.27-16.99) 02/06/23 05:37 Hct 47.6 % (37-53) 02/06/23 05:37 MCV 96.6 fl (82-101) 02/06/23 05:37 MCH 32.9 pg (27-33) 02/06/23 05:37 MCHC 34.0 g/dL (30-55) 02/06/23 05:37 RDW 13.2 % (12.1-15.1) 02/06/23 05:37 Plt Count 165 10^3/cmm (157-399) 02/06/23 05:37 MPV 9.7 fL (7.4-10.4) 02/06/23 05:37 Neut % (Auto) 57.1 % 02/06/23 05:37 Lymph % (Auto) 29.2 % 02/06/23 05:37 Lane % (Auto) 11.3 % 02/06/23 05:37 Eos % (Auto) 1.3 % 02/06/23 05:37 Baso % (Auto) 0.6 % 02/06/23 05:37 Neut # (Auto) 4.79 10^3/uL (1.8-7.7) 02/06/23 05:37 Lymph # (Auto) 2.5 10^3/uL (0.8-4.8) 02/06/23 05:37 Lane # (Auto) 1.0 10^3/uL (0.2-0.9) H 02/06/23 05:37 Eos # (Auto) 0.1 10^3/uL (0.0-0.8) 02/06/23 05:37 Baso # (Auto) 0.1 10^3/uL (0.0-0.1) 02/06/23 05:37 Nucleated RBC % (auto) 0 % 02/06/23 05:37 Nucleated RBCs # 0.0 /100WBC 02/06/23 05:37 PT 18.00 SECONDS (12.1-14.9) H 02/06/23 05:50 INR 1.44 (0.8-1.2) H 02/06/23 05:50 Sodium 137 mmol/L (136-145) 02/06/23 05:37 Potassium 4.1 mmol/L (3.5-5.1) 02/06/23 05:37 Chloride 104 mmol/L (98-107) 02/06/23 05:37 Carbon Dioxide 21 mmol/L (22-29) L 02/06/23 05:37 Anion Gap 16.1 (5-19) 02/06/23 05:37 BUN 21 mg/dL (8-23) 02/06/23 05:37 Creatinine 1.3 mg/dL (0.7-1.2) H 02/06/23 05:37 GFR Calculation Not Reportable 02/06/23 05:37 Glucose 105 mg/dL (65-115) 02/06/23 05:37 Calculated Osmolality 287 mOsm/kg (285-295) 02/06/23 05:37 Calcium 9.1 mg/dL (8.5-10.5) 02/06/23 05:37 Magnesium 2.1 mg/dL (1.7-2.3) 02/06/23 05:37 Total Bilirubin 0.8 mg/dL (0.15-1.2) 02/06/23 05:37 AST 19 U/L (0-40) 02/06/23 05:37 ALT 31 U/L (0-41) 02/06/23 05:37 Alkaline Phosphatase 89 U/L (40-130) 02/06/23 05:37 Troponin T Baseline 22 ng/L (0-15) H 02/06/23 05:37 Troponin T 120 Minute 18.72 ng/L (0-15) H 02/06/23 07:30 Delta Troponin T -3.28 ABS# (0-10) L 02/06/23 07:30 Total Protein 6.4 g/dL (6.6-8.7) L 02/06/23 05:37 Albumin 4.3 g/dL (3.5-5.2) 02/06/23 05:37 Globulin 2.1 g/dL (1.3-4.6) 02/06/23 05:37 TSH 3.39 uIU/mL (0.27-4.20) 02/06/23 05:37 Discharge Plan Discharge Patient Disposition: Home Clinical Impression: Atrial fibrillation with RVR Condition: Stable Prescriptions: Changed amiodarone 200 mg tablet 100 mg PO BID Qty: 30 0RF No Action albuterol sulfate [ProAir HFA] 90 mcg/actuation HFA aerosol inhaler 2 puff inhalation Q6H PRN (Reason: shortness of breath or wheezing) Qty: 8.5 0RF ropinirole 2 mg tablet 2 mg PO BID 90 Days Qty: 180 1RF tamsulosin 0.4 mg capsule 0.4 mg PO BEDTIME 90 Days Qty: 90 1RF atorvastatin 80 mg tablet 80 mg PO BEDTIME Qty: 90 3RF hydralazine 25 mg tablet 25 mg PO BID Qty: 180 3RF nitroglycerin 0.4 mg tablet, sublingual See Rx Instructions .ROUTE .COMPLEX Qty: 25 2RF Dose Instruction: DISSOLVE ONE TABLET UNDER THE TONGUE EVERY 5 MINUTES NEEDED FOR CHEST PAIN. DO NOT EXCEED A TOTAL OF 3 DOSES IN 15 MINUTES Rx Instructions: DISSOLVE ONE TABLET UNDER THE TONGUE EVERY 5 MINUTES NEEDED FOR CHEST PAIN. DO NOT EXCEED A TOTAL OF 3 DOSES IN 15 MINUTES Aspir-81 81 mg Tablet,Delayed Release (Dr/Ec) 81 mg PO QAM amlodipine 10 mg tablet 10 mg PO QAM levothyroxine 50 mcg tablet 50 mcg PO QPM telmisartan-hydrochlorothiazid 80-12.5 mg tablet 1 tab PO QAM Xarelto 20 mg tablet 20 mg PO DAILY Discharge Orders: Discharge ED (Routine); Ordered 02/06/23 Ordered By: Leo Roque Referrals: Elizabeth Xiao MD [Primary Care Provider] - Discharge Diet: Usual diet Discharge Activity: Limit activity as instructed Patient Instructions: Opioid Safety, Pain Management Activity Restrictions/Additional Instructions: Thank you for choosing [facility] for your healthcare needs today. Please realize this is an emergency room and that we are providing you with a medical screening exam and this may not be complete and all inclusive of all the testing and or work up that you may need to determine your ailment or severity of your illness. It is very important that you follow up as instructed or that you return to the Emergency Department should you have concerns or if your condition changes or worsens in any way. Follow-up with your primary doctor with cardiology within the next 10 to 14 days. Sign Out Sign Out Data: Patient Sign Out occurred on 02/06/23 at 06:12. Patient's care was discussed, and care was transferred from Lupillo Cavazos DO to Leo Roque DO. Coding Level of Care Code ED Gold Reclaimer for Sergio Vicente
[2023-02-06 05:48] LABS: Basophils # 0.1 10^3/uL (0.0-0.1); Basophils % 0.6 %; Eosinophils # 0.1 10^3/uL (0.0-0.8); Eosinophils % 1.3 %; Hematocrit 47.6 % (37-53); Lymphocytes # 2.5 10^3/uL (0.8-4.8); Lymphocytes % 29.2 %; Mean Corpuscular Hemoglobin 32.9 pg (27-33); Mean Corpuscular Volume 96.6 fl (82-101); Mean Platelet Volume 9.7 fL (7.4-10.4); Monocytes % 11.3 %; Neutrophils # 4.79 10^3/uL (1.8-7.7); Neutrophils % 57.1 %; Nucleated Red Blood Cells % 0 %; Platelet Count 165 10^3/cmm (157-399); Red Blood Count 4.93 10^6/uL (3.85-5.65); Red Cell Distribution Width 13.2 % (12.1-15.1); White Blood Count 8.39 10^3/uL (3.29-11.43)
[2023-02-06] MEDS: dilTIAZem 5 mg/mL SDV 5 mL 10 MG IVP ×2 (05:49→06:26)
[2023-02-06 06:05] LABS: Troponin(5th) Baseline 22 ng/L (0-15)
[2023-02-06 06:08] LABS: INR 1.44 (0.8-1.2)
[2023-02-06 06:13] LABS: Alanine Aminotransferase 31 U/L (0-41); Albumin Level 4.3 g/dL (3.5-5.2); Alkaline Phosphatase 89 U/L (40-130); Anion Gap 16.1 (5-19); Aspartate Amino Transferase 19 U/L (0-40); Blood Urea Nitrogen 21 mg/dL (8-23); Calcium 9.1 mg/dL (8.5-10.5); Carbon Dioxide 21 mmol/L (22-29); Chloride 104 mmol/L (98-107); Globulin 2.1 g/dL (1.3-4.6); Glucose 105 mg/dL (65-115); Magnesium 2.1 mg/dL (1.7-2.3); Osmolality Calculated 287 mOsm/kg (285-295); Potassium 4.1 mmol/L (3.5-5.1); Sodium 137 mmol/L (136-145); Thyroid Stimulating Hormone 3.39 uIU/mL (0.27-4.20); Total Bilirubin 0.8 mg/dL (0.15-1.2); Total Protein 6.4 g/dL (6.6-8.7)
[2023-02-06] MEDS: amiodarone 200 mg Tablet PO (06:27)
[2023-02-06] MEDS: dilTIAZem 100 MG in sodium chloride 0.9% (add-van) 100 ML IV (06:38)
--- NOTE | 2023-02-06 07:19 | ECG_ITS ---
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 Measurements Intervals [place] Rate: 88 P: 0 CO: 0 QRS: 15 QRSD: 93 T: 11 QT: 373 QTc: 453 Interpretive Statements ATRIAL FIBRILLATION ABNORMAL RHYTHM ECG Compared to ECG 09/24/2021 16:35:36 Sinus bradycardia no longer present First degree AV block no longer present Electronically Signed On 02-07-2023 19:30:44 POTATO LOADER by Monse Huerta M.D. [id number]
[2023-02-06 08:01] LABS: Troponin 5 2HR 18.72 ng/L (0-15)
[2023-02-06 08:07] LABS: Troponin 5 2HR Delta -3.28 ABS# (0-10)
== END 2023-02-06 09:17 | disposition home or self-care (01) ==
PROVIDERS: Emergency Medicine; Emergency Provider Family Medicine; PCP Family Medicine
DX: I48.20 Chronic atrial fibrillation, unspecified (principal); Z79.82 Long term (current) use of aspirin; I11.0 Hypertensive heart disease with heart failure; I50.9 Heart failure, unspecified; I25.10 Atherosclerotic heart disease of native coronary artery without angina pectoris; E78.5 Hyperlipidemia, unspecified
CPT/HCPCS: 36415; 71045; 80053; 83735; 84443; 84484; 85025; 85610; 93005; 99285; J3490

== ENCOUNTER 2023-02-11 12:40 | Observation (INO) | payer MEDICARE, SELFPAY ==
[2023-02-11 13:21] VITALS: BP 145/86; PULSE 103; RESP 17; TEMP 36.7; O2SAT 96; BMI 35.9
--- NOTE | 2023-02-11 13:41 | ECG_ITS ---
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 Measurements Intervals [place] Rate: 123 P: 0 NC: 0 QRS: 37 QRSD: 94 T: 72 QT: 318 QTc: 457 Interpretive Statements ATRIAL FIBRILLATION WITH RAPID VENTRICULAR RESPONSE WITH ABERRANT CONDUCTION OR VENTRICULAR PREMATURE COMPLEXES MODERATE ST DEPRESSION [0.05+ mV ST DEPRESSION] Compared to ECG 02/06/2023 07:19:00 Ventricular premature complex(es) now present Aberrant conduction of supraventricular beat(s) now present ST (T wave) deviation now present Electronically Signed On 02-12-2023 0:31:39 ACID WASH OPERATOR by Monse Huerta M.D. [id number]
--- NOTE | 2023-02-11 13:41 | XRR_ITS ---
PROCEDURE INFORMATION: Exam: XR Chest Exam date and time: 02/11/2023 1:46 PM Age: 72 years old Clinical indication: Shortness of breath; Additional info: SOB TECHNIQUE: Imaging protocol: Radiologic exam of the chest. Views: 1 view. COMPARISON: CR (CHEST, ) 02/06/2023 5:43 AM FINDINGS: Lungs: There are pulmonary parenchymal calcifications consistent with remote granulomatous organism exposure. Pleural spaces: Unremarkable. No pleural effusion. No pneumothorax. Heart/Mediastinum: Unremarkable. No cardiomegaly. Vasculature: Thoracic aorta is mildly tortuous similar to the prior study. Bones/joints: Unremarkable. XR/XR chest 1V portable [id number] IMPRESSION: No evidence for acute cardiopulmonary disease.
--- NOTE | 2023-02-11 13:42 | ED_ITS ---
HPI - SOB/Dyspnea 2 General: Chief Complaint: Shortness of Breath/Dyspnea Stated Complaint: sob Time Seen by Provider: 02/11/23 13:33 Source: patient and family Mode of arrival: ambulatory Limitations: no limitations History of Present Illness: HPI Narrative: Patient is a nice 72-year-old male with a history of atrial fibrillation, CAD, hyperlipidemia, obesity, hypothyroidism, CHF here for complaints of shortness of breath over the past several days. Patient states his shortness of breath seems to be worse with lying flat and exertion. He is not having any chest pain currently but states he will have some occasional discomfort when he lies flat- mainly in his shoulders but later does describe some chest pressure. He states with his last two cardiac stents this was primarily his symptoms. Patient tells me he has not been taking his water pill over the past 2 months. He denies history of CHF although looking at previous documentation from his lead refiner it looks like he does carry this diagnosis. 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 Patient was seen in our ED approximately 5 days ago for complaints of chest pain. States his amiodarone was doubled on his visit. His lead refiner is Dr. Gonzalez. Last echocardiogram and cardiac catheterization were in September 2021 with results below: CONCLUSIONS Technically limited quality echocardiogram because of poor ultrasonic windows. LV systolic function is normal with EF 55-60% Mild mitral regurgitation Mild tricuspid regurgitation. No comparison studies are available Conclusions 1. Critical 99% mid RCA stenosis. Status post successful revascularization with ROSAMARIA x1.. 2. Mid Right Coronary Artery was treated with a Balloon, Drug Eluting Stent, and Balloon. Reports a case of bronchitis approximately a month ago that he feels like he recovered from. He has not noticed any weight gain or worsening swelling to his legs. Denies PND. MD elicited complaint: shortness of breath Pertinent past history: other (CAD, HTN) Onset (ago): day(s) Timing: constant Severity: moderate Exacerbating factors: lying flat Relieving factors: nothing Associated symptoms: Reports orthopnea; Deny abdominal pain, chest congestion, chest pain, extremity pain, fever(s), hemoptysis, lightheadedness, nausea, palpitations, syncope or vomiting Treatment prior to arrival: none Related Data: Home oxygen amount: none Review of Systems 2 Const: Denies: fever(s), chills, body aches or fatigue Eyes: Denies: change in vision or blurry vision Card: Reports: orthopnea; Denies: chest pain, palpitations, irregular heart rhythm, lightheadedness, syncope, pre-syncope, leg pain with exertion or acrocyanosis Resp: Denies: dyspnea, productive cough, non-productive cough, wheezing, pain on inspiration, change in phlegm color, hemoptysis or chest congestion GI: Denies: abdominal pain, nausea, vomiting, heartburn or diarrhea : Denies: difficulty urinating or dysuria Musc: Denies: neck pain, back pain, extremity pain, extremity swelling or joint pain Skin/Breast: Denies: rash Neuro: Denies: headache(s), numbness in extremities, weakness in extremities or sensory changes PFSH ED 2 PFSH: Medical History CHF (congestive heart failure), NYHA class III Unstable angina BPH loc w urin obs/LUTS Lower urinary tract symptoms (LUTS) Spinal osteoarthritis Acute thoracic back pain Restless leg syndrome Chronic arthritis Allergic rhinitis Hereditary hemochromatosis Hypertension Restless legs syndrome (RLS) CAD (coronary artery disease) Hyperlipidemia Surgical History Hx of cardiac catheterization History of coronary artery stent placement Hx of hernia repair Hx of colonoscopy Family History Mother , at age 94 Cancer Breast cancer Father , at age 88 Prostate cancer Social History Smoking and tobacco/nicotine status: never used tobacco/nicotine Alcohol intake: never Household members: spouse Marital status: Current occupational status: employed Physical Exam 2 Const: COMMON NORMALS: no acute distress, patient oriented x3, no limitations, alert and well nourished GENERAL APPEARANCE: cooperative NUTRITIONAL APPEARANCE: overweight ORIENTATION/CONSCIOUSNESS: Yes awake, Yes oriented to person, Yes oriented to place and Yes oriented to time HENMT: COMMON NORMALS: normocephalic and atraumatic HEAD & SCALP: n ormocephalic and atraumatic Neck/C-Spine: COMMON NORMALS: full ROM, no lymphadenopathy, supple and no meningeal signs Chest: COMMONS NORMALS: normal inspection of the chest Resp: COMMON NORMALS: normal respiratory effort and clear to auscultation bilaterally AUSCULTATION: clear to auscultation bilaterally Cardio: RATE: tachycardic (anywhere from 90s-125s) RHYTHM: abnormal rhythm irregularly irregular GI: COMMON NORMALS: Normal to inspection, nondistended, normoactive bowel sounds present, Soft to palpation, non-tender, No hepatosplenomegaly present and no masses PALPATION: Yes Soft to palpation and Yes No hepatosplenomegaly present : COMMON NORMALS: Yes no CVA tenderness BLADDER/KIDNEY EXAM: Yes no CVA tenderness Back/Pelvis: COMMON NORMALS: no CVA tenderness and thoracic and lumbar spine normal to inspection Extremity: COMMON NORMALS: normal to inspection NARRATIVE EXTREMITY EXAM: mild bilateral symmetrical LE non-pitting edema Neuro: COMMON NORMALS: patient oriented x3, moves all extremities, no focal motor deficits, no sensory deficits noted and gait normal S ENSORIUM/ORIENTATION: Yes alert, Yes oriented to person, Yes oriented to place and Yes oriented to time MENINGEAL SIGNS: Yes no meningeal signs Skin: COMMON NORMALS: no rashes or lesions noted GENERAL SKIN EXAM: no rashes or lesions noted Course 2 Vital Signs: Vital signs: Vital Signs Temperature 98.0 F 02/11/23 13:21 Pulse Rate 111 H 02/11/23 15:20 Respiratory Rate 19 H 02/11/23 15:20 Blood Pressure 127/90 02/11/23 15:20 Pulse Oximetry 95 02/11/23 15:20 Oxygen Delivery Me thod Room Air 02/11/23 13:21 MDM - SOB/Dyspnea Medical Decision Making Patient is a nice 72-year-old male with extensive past medical history here for complaints of shortness of breath worse with lying flat and exertion. He does report some chest pressure and shoulder pain with lying flat as well. Patient states this is how he presented when he had his last two stents placed. Patient was seen here four days ago and had his amiodarone dose doubled. He arrives today again in a fib with RVR with aberrant conduction or PVCs. He was given IV diltiazem with short-term rate control. I think given his history best course would be hospitalization. Concern for decompensated HF due to his atrial fib. Spoke to Dr. Carlos who agrees with need for admission. Spoke to Dr. Mark who will admit. He recommended IV digoxin and he will place admit orders. Lab Data 02/11/23 14:12 02/11/23 14:12 Labs/Radiology: Radiology Impressions Chest X-Ray 02/11/23 13:41 IMPRESSION: No evidence for acute cardiopulmonary disease. Laboratory Results WBC 7.57 10^3/uL (3.29-11.43) 02/11/23 14:12 RBC 5.28 10^6/uL (3.85-5.65) 02/11/23 14:12 Hgb 17.40 g/dL (11.27-16.99) H 02/11/23 14:12 Hct 51.8 % (37-53) 02/11/23 14:12 MCV 98.1 fl (82-101) 02/11/23 14:12 MCH 33.0 pg (27-33) 02/11/23 14:12 MCHC 33.6 g/dL (30-55) 02/11/23 14:12 RDW 13.4 % (12.1-15.1) 02/11/23 14:12 Plt Count 175 10^3/cmm (157-399) 02/11/23 14:12 MPV 9.8 fL (7.4-10.4) 02/11/23 14:12 Neut % (Auto) 65.4 % 02/11/23 14:12 Lymph % (Auto) 22.3 % 02/11/23 14:12 [place] % (Auto) 10.3 % 02/11/23 14:12 Eos % (Auto) 0.5 % 02/11/23 14:12 Baso % (Auto) 0.8 % 02/11/23 14:12 Neut # (Auto) 4.95 10^3/uL (1.8-7.7) 02/11/23 14:12 Lymph # (Auto) 1.7 10^3/uL (0.8-4.8) 02/11/23 14:12 [place] # (Auto) 0.8 10^3/uL (0.2-0.9) 02/11/23 14:12 Eos # (Auto) 0.0 10^3/uL (0.0-0.8) 02/11/23 14:12 Baso # (Auto) 0.1 10^3/uL (0.0-0.1) 02/11/23 14:12 Nucleated RBC % (auto) 0 % 02/11/23 14:12 Nucleated RBCs # 0.0 /100WBC 02/11/23 14:12 Sodium 140 mmol/L (136-145) 02/11/23 14:12 Potassium 4.2 mmol/L (3.5-5.1) 02/11/23 14:12 Chloride 102 mmol/L (98-107) 02/11/23 14:12 Carbon Dioxide 24 mmol/L (22-29) 02/11/23 14:12 Anion Gap 18.2 (5-19) 02/11/23 14:12 BUN 32 mg/dL (8-23) H 02/11/23 14:12 Creatinine 1.1 mg/dL (0.7-1.2) 02/11/23 14:12 GFR Calculation Not Reportable 02/11/23 14:12 Glucose 111 mg/dL (65-115) 02/11/23 14:12 Calculated Osmolality 298 mOsm/kg (285-295) H 02/11/23 14:12 Calcium 9.7 mg/dL (8.5-10.5) 02/11/23 14:12 Total Bilirubin 1.2 mg/dL (0.15-1.2) 02/11/23 14:12 AST 19 U/L (0-40) 02/11/23 14:12 ALT 36 U/L (0-41) 02/11/23 14:12 Alkaline Phosphatase 85 U/L (40-130) 02/11/23 14:12 Troponin T Baseline 21 ng/L (0-15) H 02/11/23 14:12 NT-Pro-B Natriuret Pep 341 pg/mL (0-125) H 02/11/23 14:12 Total Protein 7.3 g/dL (6.6-8.7) 02/11/23 14:12 Albumin 5.0 g/dL (3.5-5.2) 02/11/23 14:12 Globulin 2.3 g/dL (1.3-4.6) 02/11/23 14:12 All radiology interpretation(s) finalized by discharge Discharge Plan Discharge Patient Disposition: Admitted As Inpatient Clinical Impression: Atrial fibrillation with RVR, On amiodarone therapy CHF (congestive heart failure), NYHA class III Qualifiers: Congestive heart failure type: combined Congestive heart failure chronicity: c hronic Qualified Code(s): I50.42 - Chronic combined systolic (congestive) and diastolic (congestive) heart failure Condition: Stable Coding Level of Care Code ED Senior Oracle Adf Developer for Sergio Vicente
--- NOTE | 2023-02-11 14:18 | PC.PHAR ---
PT STATES HE HAD NOT BEEN TAKING FUROSEMIDE 20 MG LAST FILLED IN APRIL. SPOKE WITH PHARMACY WHO GAVE DIRECTIONS OF 2 TABLETS TWICE DAILY LAST FILLED 05/06/22. PT STATES HE HAS TAKEN 4 TABLETS TODAY. 02/11/23
[2023-02-11 14:22] LABS: Basophils # 0.1 10^3/uL (0.0-0.1); Basophils % 0.8 %; Eosinophils % 0.5 %; Hematocrit 51.8 % (37-53); Lymphocytes # 1.7 10^3/uL (0.8-4.8); Lymphocytes % 22.3 %; Mean Corpuscular HGB Conc 33.6 g/dL (30-55); Mean Corpuscular Volume 98.1 fl (82-101); Mean Platelet Volume 9.8 fL (7.4-10.4); Monocytes # 0.8 10^3/uL (0.2-0.9); Monocytes % 10.3 %; Neutrophils # 4.95 10^3/uL (1.8-7.7); Neutrophils % 65.4 %; Nucleated Red Blood Cells % 0 %; Platelet Count 175 10^3/cmm (157-399); Red Blood Count 5.28 10^6/uL (3.85-5.65); Red Cell Distribution Width 13.4 % (12.1-15.1); White Blood Count 7.57 10^3/uL (3.29-11.43)
[2023-02-11 14:42] LABS: Troponin(5th) Baseline 21 ng/L (0-15)
[2023-02-11] MEDS: dilTIAZem 5 mg/mL SDV 5 mL 10 MG IVP (14:44)
[2023-02-11 14:47] LABS: Alanine Aminotransferase 36 U/L (0-41); Alkaline Phosphatase 85 U/L (40-130); Anion Gap 18.2 (5-19); Aspartate Amino Transferase 19 U/L (0-40); Blood Urea Nitrogen 32 mg/dL (8-23); Calcium 9.7 mg/dL (8.5-10.5); Carbon Dioxide 24 mmol/L (22-29); Chloride 102 mmol/L (98-107); Globulin 2.3 g/dL (1.3-4.6); Glucose 111 mg/dL (65-115); NT Pro B Type Natriuretic Pept 341 pg/mL (0-125); Osmolality Calculated 298 mOsm/kg (285-295); Potassium 4.2 mmol/L (3.5-5.1); Sodium 140 mmol/L (136-145); Total Bilirubin 1.2 mg/dL (0.15-1.2); Total Protein 7.3 g/dL (6.6-8.7)
[2023-02-11 15:20] VITALS: BP 127/90; PULSE 111; RESP 19; O2SAT 95
--- NOTE | 2023-02-11 15:30 | P.HP_ITS ---
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 In the ER he was diagnosed with A-fib RVR he was given digoxin and IV push of Cardizem. Patient is denying chest pain, fever, diarrhea, he is experiencing shortness of breath weight gain and orthopnea for last 3 to 4 weeks, he thinks Thanksgiving and Li dinner did exacerbate his symptoms. He is denying chest pain at the time of evaluation his heart is fluctuant between 95-1 12 blood pressure is stable he is not hypertensive at the time of evaluation systolic blood pressure 120s, diastolics 70s He is on room air Review of Systems 2 Const: Denies: fever(s) Eyes: Denies: change in vision ENMT: Denies: throat pain Card: Reports: palpitations and swelling of feet/ankles; Denies: chest pain Resp: Reports: dyspnea GI: Denies: abdominal pain Medications/Allergies Home Medications Medication Instructions Recorded Confirmed Last Taken Type albuterol sulfate 90 mcg/actuation 2 puff inhalation Q6H PRN 01/24/22 02/11/23 Unknown Rx aerosol inhaler (ProAir HFA) shortness of breath or wheezing #8.5 grams atorvastatin 80 mg tablet 80 mg PO BEDTIME #90 tabs 09/16/22 02/11/23 02/10/23 Rx hydralazine 25 mg tablet 25 mg PO BID #180 tabs 12/02/22 02/11/23 02/10/23 Rx nitroglycerin 0.4 mg sublingual See Rx Instructions .Route 12/06/22 02/11/23 Unknown Rx tablet .COMPLEX #25 tabs ropinirole 2 mg tablet 2 mg PO BID 90 days #180 tabs 12/10/22 02/11/23 02/11/23 Rx tamsulosin 0.4 mg capsule 0.4 mg PO BEDTIME 90 days #90 caps 12/10/22 02/11/23 02/10/23 Rx amiodarone 200 mg tablet 100 mg (1/2 x 200 mg) PO BID #30 02/06/23 02/11/23 02/11/23 Rx tabs amlodipine 10 mg tablet 10 mg PO QAM 02/06/23 02/11/23 02/11/23 History aspirin 81 mg tablet,delayed 81 mg PO QAM 02/06/23 02/11/23 02/11/23 History release levothyroxine 50 mcg tablet 50 mcg PO QPM 02/06/23 02/11/23 02/11/23 History rivaroxaban 20 mg tablet (Xarelto) 20 mg PO DAILY 02/06/23 02/11/23 02/11/23 History telmisartan 80 1 tab PO QAM 02/06/23 02/11/23 02/11/23 History mg-hydrochlorothiazide 12.5 mg tablet furosemide 20 mg tablet 40 mg PO BID 02/11/23 02/11/23 02/11/23 History tramadol 50 mg tablet 50 mg PO BID PRN Pain 02/11/23 02/11/23 Unknown History Allergies Allergy/AdvReac Type Severity Reaction Status Date / Time hydrocodone Allergy ADR-Abdominal Verified 12/10/22 07:51 Pain meperidine [From Demerol] Allergy Unknown Verified 12/10/22 07:51 PFSH Acute 2 PFSH: Medical History CHF (congestive heart failure), NYHA class III Unstable angina BPH loc w urin obs/LUTS Lower urinary tract symptoms (LUTS) Spinal osteoarthritis Acute thoracic back pain Restless leg syndrome Chronic arthritis Allergic rhinitis Hereditary hemochromatosis Hypertension Restless legs syndrome (RLS) CAD (coronary artery disease) Hyperlipidemia Surgical History Hx of cardiac catheterization History of coronary artery stent placement Hx of hernia repair Hx of colonoscopy Family History Mother , at age 94 Cancer Breast cancer Father , at age 88 Prostate cancer Social History Smoking and tobacco/nicotine status: never used tobacco/nicotine Alcohol intake: never Household members: spouse Marital status: Current occupational status: employed Vitals/I&O/Wt Last Vital Signs Temp 98.0 F 12/26/23 13:21 Pulse 111 H 02/11/23 15:20 Resp 19 H 02/11/23 15:20 BP 127/90 02/11/23 15:20 Pulse Ox 95 02/11/23 15:20 O2 Del Method Room Air 02/11/23 13:21 Weight last 48 hrs Weight 113.398 kg Physical Exam 2 Narrative: Clinical signs of fluid overload A-fib RVR Hemodynamically stable Abdomen soft Lower extremity 1+ edema Abdomen distended nontender No active chest pain Pleasant and cooperative Currently doing well on room air Appears stated age No active distress Data 02/11/23 14:12 02/11/23 14:12 A&P Assessment and plan (1) Hypertension: Qualifiers: Hypertension type: primary hypertension Qualified Code(s): I10 - Essential (primary) hypertension (2) CHF (congestive heart failure), NYHA class III: Qualifiers: Congestive heart failure type: combined Congestive heart failure chronicity: chronic Qualified Code(s): I50.42 - Chronic combined systolic (congestive) and diastolic (congestive) heart failure (3) Atrial fibrillation with RVR: (4) On amiodarone therapy: (5) Atrial fibrillation: (6) Hypothyroidism (acquired): (7) Hereditary hemochromatosis: (8) BPH loc w urin obs/LUTS: (9) Restless leg syndrome: Plan A-fib RVR Patient has been loaded with digoxin Second dose of digoxin will be given in the evening He received 500 mcg in the ER another 250 mcg at night Continue amiodarone at higher dose 200mg twice daily Preserved action fraction heart failure exacerbation Echo was done last year Continue IV diuresis Hypertensive continue antihypertensive regimen Continue levothyroxine Continue Flomax for BPH Full code Cardiac diet DVT prophylaxis covered due to Xarelto Will monitor the level of digoxin after 5 doses Hypertensive, recheck blood pressure, adjust antihypertensive regimen Patient's closing machine operator is Dr. 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 [place] Self interpretation EKG showing A-fib RVR: Self interpretation of chest x-ray, mild pulmonary vascular congestion, lower lobe atelectasis Attestations 2 Medical Necessity Statement*: Anticipated discharge within 48 hours for management of A-fib RVR Diagnoses Primary hypertension I10 Hypertension type: primary hypertension Chronic combined systolic and diastolic congestive heart failure, NYHA class 3 I50.42 Congestive heart failure type: combined Congestive heart failure chronicity: chronic Atrial fibrillation with RVR I48.91 On amiodarone therapy Z79.899 Atrial fibrillation I48.91 Hypothyroidism (acquired) E03.9 Hereditary hemochromatosis E83.110 BPH loc w urin obs/LUTS N40.1 Restless leg syndrome G25.81
--- NOTE | 2023-02-11 15:41 | ECG_ITS ---
[facility] Test Date: 2023-02-11 Pat Name: Lavon Boone Department: Room: Gender: Male Maintenance Planner: : 1950 Requested By: Judy Darnell Order Number: [id number] Aburto MD: Monse Huerta M.D. Measurements Intervals [place] Rate: 114 P: 0 VT: 0 QRS: 37 QRSD: 94 T: 48 QT: 330 QTc: 456 Interpretive Statements ATRIAL FIBRILLATION WITH RAPID VENTRICULAR RESPONSE WITH ABERRANT CONDUCTION OR VENTRICULAR PREMATURE COMPLEXES ABNORMAL RHYTHM ECG Compared to ECG 02/11/2023 14:06:23 ST (T wave) deviation no longer present Electronically Signed On 02-12-2023 0:34:09 M[employer]I [employer]NSH[employer] ASSESSOR by Monse Huerta M.D. [id number]
[2023-02-11] MEDS: digoxin 250 mcg/ml INJ 2 mL 500 MCG IVP (15:44)
[2023-02-11 16:00] VITALS: BP 194/100; PULSE 107; RESP 22; O2SAT 96
[2023-02-11 16:42] VITALS: BP 189/117; PULSE 120; O2SAT 98
[2023-02-11 16:54] LABS: Troponin 5 2HR 19.74 ng/L (0-15); Troponin 5 2HR Delta -1.26 ABS# (0-10)
--- NOTE | 2023-02-11 17:15 | PC.NURSE ---
received into room 102 from er at 1650.report received.pt denies pain at present.no sob noted.afib on monitor.oriented to room environment.instructed to notify staff for any sob,chest pain,or for any concerns at all.pt verb understanding of instructions.
[2023-02-11] MEDS: amiodarone 200 mg Tablet 100 MG PO (17:41)
[2023-02-11] MEDS: levothyroxine 50 mcg Tablet PO (17:42)
[2023-02-11] MEDS: potassium chloride ER 20 mEq Tablet 40 MEQ PO (17:42)
[2023-02-11] MEDS: ropinirole 2 mg Tablet PO (17:42)
[2023-02-11] MEDS: hyDRALAzine 25 mg Tablet PO (17:43)
[2023-02-11 17:53] VITALS: PULSE 120; RESP 20; O2SAT 98
[2023-02-11] MEDS: FUROsemide 10 mg/mL SDV 4mL 40 MG IVP (19:44)
[2023-02-11] MEDS: digoxin 250 mcg/ml INJ 2 mL IVP (19:44)
[2023-02-11 20:12] VITALS: PULSE 101; RESP 16; O2SAT 99
[2023-02-11] MEDS: tamsulosin 0.4 mg Capsule PO (21:11)
[2023-02-11] MEDS: atorvastatin 40 mg Tablet 80 MG PO (21:11)
[2023-02-12] VITALS (63 sets, daily range): BP systolic 96–137; BP diastolic 64–85; PULSE 86–132; RESP 13–26; TEMP 36.5–36.7; O2SAT 89–97
[2023-02-12] MEDS: acetaminophen 500 mg Tablet PO ×2 (02:32→20:37)
[2023-02-12 04:36] LABS: Basophils # 0.1 10^3/uL (0.0-0.1); Basophils % 0.6 %; Eosinophils # 0.1 10^3/uL (0.0-0.8); Hematocrit 48.5 % (37-53); Lymphocytes # 1.9 10^3/uL (0.8-4.8); Lymphocytes % 21.9 %; Mean Corpuscular HGB Conc 34.6 g/dL (30-55); Mean Corpuscular Hemoglobin 32.8 pg (27-33); Mean Corpuscular Volume 94.7 fl (82-101); Mean Platelet Volume 10.2 fL (7.4-10.4); Monocytes # 1.1 10^3/uL (0.2-0.9); Monocytes % 12.5 %; Neutrophils # 5.53 10^3/uL (1.8-7.7); Neutrophils % 63.7 %; Nucleated Red Blood Cells % 0 %; Platelet Count 162 10^3/cmm (157-399); Red Blood Count 5.12 10^6/uL (3.85-5.65); Red Cell Distribution Width 13.1 % (12.1-15.1); White Blood Count 8.69 10^3/uL (3.29-11.43)
[2023-02-12 05:00] LABS: Anion Gap 16.9 (5-19); Blood Urea Nitrogen 28 mg/dL (8-23); Calcium 9.7 mg/dL (8.5-10.5); Carbon Dioxide 24 mmol/L (22-29); Chloride 101 mmol/L (98-107); Glucose 94 mg/dL (65-115); Magnesium 2.1 mg/dL (1.7-2.3); Osmolality Calculated 291 mOsm/kg (285-295); Potassium 3.9 mmol/L (3.5-5.1); Sodium 138 mmol/L (136-145)
[2023-02-12] MEDS: aspirin 81 mg EC Tablet PO (05:21)
[2023-02-12] MEDS: losartan 50 mg Tablet 100 MG PO (05:21)
[2023-02-12] MEDS: TRAMadol 50 mg Tablet PO (07:47)
[2023-02-12] MEDS: amiodarone 200 mg Tablet PO ×2 (09:15→18:03)
[2023-02-12] MEDS: rivaroxaban 10 mg Tablet 20 MG PO (09:15)
[2023-02-12] MEDS: ropinirole 2 mg Tablet PO ×2 (09:15→18:03)
[2023-02-12] MEDS: FUROsemide 10 mg/mL SDV 4mL 40 MG IVP ×2 (09:15→19:15)
[2023-02-12] MEDS: digoxin 125 mcg Tablet PO (09:16)
--- NOTE | 2023-02-12 10:59 | PC.CHAP ---
Pastoral Care Encounter/Spiritual Assessment Type of Contact [] Declined instrument lens grinder apprentice visit [] Patient/Family/Request visit [] Outpatient visit [] Follow-up visit [] Physician referral [] Code/Alert [x] Routine visit [] Staff referral [] Actively dying [] Patient sleeping [x] Family support [] [] Out of room [] Palliative care [] [] Receiving care in room [] Pre-surgical visit [] Trauma [] Long length of stay [] ICU visit [] Other: Relational/Emotional Strength [x] Patient feels connected with others/family/visitors/staff [] Distress [] Loneliness/isolation [] Abandonment Spirituality of Patient [x] Person of Candy [] Attends Scientology of their Candy [x] Believes in Prayer [] Reads Bible or Protestant materials [] There are Spiritual issues to be addressed [place] Interventions [x] Prayer [x] Active listening [] Non-anxious presence [] Spiritual/emotional support [] Crisis/trauma care [] Spiritual counseling [] Bereavement support [] Provided bereavement packet [] Provided Bible/devotional materials [] Provided toy/stuffed animal, coloring book to patient or family member [] Provided Communion [] Anointing/[place] [] Salvation [] Completed spiritual assessment [] Other: Impact on Illness or Injury [] Angry [] Fearful [] Anxious [] Often cries [] Exhaustion [] Unable to work [] Unable to attend sabianism [] Unable to walk/stand [] Unable to read [] Unable to drive [] Unable to eat/drink [] Unable to sleep [] Unable to be with family [] Patient intubated [] Other: Summary Time spent with patient 15 min
--- NOTE | 2023-02-12 11:05 | P.PN_ITS ---
Subjective 2 Subjective: Patient still in A-fib RVR Today he will get p.o. digoxin No overnight events Patient is stating that he has not felt any chest pain No significant worsening of shortness of breath Currently on room air Eating breakfast Vitals/I&O/Wt Last Vital Signs Temp 98.0 F 02/12/23 07:58 Pulse 120 H 02/12/23 09:16 Resp 18 02/12/23 08:32 BP 104/64 02/12/23 09:13 Pulse Ox 96 02/12/23 08:32 O2 Del Method Room Air 02/12/23 08:32 02/11/23 02/12/23 02/12/23 22:59 06:59 14:59 Intake Total 360 / 360 300 / 660 240 / 240 Output Total 400 / 400 0 / 400 130 / 130 Balance -40 / -40 300 / 260 110 / 110 Weight last 48 hrs Weight 114.714 kg Weight 113.398 kg Physical Exam 2 Narrative: Signs of fluid overload present Currently on room air Eating breakfast Pleasant GCS 15 S1, S2 A-fib RVR Abdomen soft Pleasant and cooperative Nonfocal neuroexam Data 02/12/23 03:35 02/12/23 03:35 A&P Assessment and plan (1) CHF (congestive heart failure), NYHA class III: Qualifiers: Congestive heart failure type: combined Congestive heart failure chronicity: chronic Qualified Code(s): I50.42 - Chronic combined systolic (congestive) and diastolic (congestive) heart failure (2) CAD (coronary artery disease): (3) Atrial fibrillation with RVR: (4) On amiodarone therapy: (5) Atrial fibrillation: (6) Hypothyroidism (acquired): (7) Hereditary hemochromatosis: (8) BPH loc w urin obs/LUTS: (9) Dyspnea: Plan Symptomatic A-fib with RVR Diastolic CHF exacerbation It seems like A-fib RVR contributed to congestive heart failure decompensation Continue diuresis I have increased the dose of amiodarone which she was taking at home, added digoxin as well Will check digoxin level after 4-5 doses Patient has required cardioversion in the past to improve his symptoms, Dr. 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, he was counseled aggressively during this hospitalization Cardiac diet Full code Continue Xarelto Continue levothyroxine and tamsulosin Attestations 2 Medical Necessity Statement*: Patient will need to stay in the hospital for management of A-fib RVR Diagnoses Chronic combined systolic and diastolic congestive heart failure, NYHA class 3 I50.42 Congestive heart failure type: combined Congestive heart failure chronicity: chronic Coronary artery disease involving [place] coronary artery of [place] heart without angina pectoris I25.10 Atrial fibrillation with RVR I48.91 On amiodarone therapy Z79.899 Atrial fibrillation I48.91 Hypothyroidism (acquired) E03.9 Hereditary hemochromatosis E83.110 BPH loc w urin obs/LUTS N40.1 Dyspnea R06.00
--- NOTE | 2023-02-12 16:23 | PM.CONSULT ---
Providers/Reason For Consult Consulting Physician/Specialty*: Harish Thompson MD/Cardiology Reason for Consult*: Atrial fibrillation with RVR Requesting Physician: Dr Mark Attending Physician: Margarito Mark MD Primary Care Provider: Elizabeth Xiao MD History of Present Illness History of Present Illness Lavon Boone is a 72 year old male with past medical history of CAD, atrial fibrillation, congestive heart failure presented to hospital with shortness of breath volume overload. He was also in atrial fibrillation with RVR. According to patient he had felt some chest discomfort radiating to the arms also but was not lasting long. EKG showed A-fib with RVR and heart rate of 123 bpm. Patient was put on digoxin and amiodarone. In the past he had a cardioversion. Troponins have not trended up significantly. Review of Systems Const: Denies: fever(s) Eyes: Denies: change in vision ENMT: Denies: throat pain Card: Reports: palpitations and swelling of feet/ankles; Denies: chest pain Resp: Reports: dyspnea GI: Denies: abdominal pain Medications/Allergies Home Medications Medication Instructions Recorded Confirmed Last Taken Type albuterol sulfate 90 mcg/actuation 2 puff inhalation Q6H PRN 01/24/22 02/11/23 Unknown Rx aerosol inhaler (ProAir HFA) shortness of breath or wheezing #8.5 grams atorvastatin 80 mg tablet 80 mg PO BEDTIME #90 tabs 09/16/22 02/11/23 02/10/23 Rx hydralazine 25 mg tablet 25 mg PO BID #180 tabs 12/02/22 02/11/23 02/10/23 Rx nitroglycerin 0.4 mg sublingual See Rx Instructions .Route 12/06/22 02/11/23 Unknown Rx tablet .COMPLEX #25 tabs ropinirole 2 mg tablet 2 mg PO BID 90 days #180 tabs 12/10/22 02/11/23 02/11/23 Rx tamsulosin 0.4 mg capsule 0.4 mg PO BEDTIME 90 days #90 caps 12/10/22 02/11/23 02/10/23 Rx amiodarone 200 mg tablet 100 mg (1/2 x 200 mg) PO BID #30 02/06/23 02/11/23 02/11/23 Rx tabs amlodipine 10 mg tablet 10 mg PO QAM 02/06/23 02/11/23 02/11/23 History aspirin 81 mg tablet,delayed 81 mg PO QAM 02/06/23 02/11/23 02/11/23 History release levothyroxine 50 mcg tablet 50 mcg PO QPM 02/06/23 02/11/23 02/11/23 History rivaroxaban 20 mg tablet (Xarelto) 20 mg PO DAILY 02/06/23 02/11/23 02/11/23 History telmisartan 80 1 tab PO QAM 02/06/23 02/11/23 02/11/23 History mg-hydrochlorothiazide 12.5 mg tablet furosemide 20 mg tablet 40 mg PO BID 02/11/23 02/11/23 02/11/23 History tramadol 50 mg tablet 50 mg PO BID PRN Pain 02/11/23 02/11/23 Unknown History Allergies Allergy/AdvReac Type Severity Reaction Status Date / Time hydrocodone Allergy ADR-Abdominal Verified 12/10/22 07:51 Pain meperidine [From Demerol] Allergy Unknown Verified 12/10/22 07:51 Current Medications Generic Name Dose Route Start Last Admin Trade Name Freq PRN Reason Stop Dose Admin Acetaminophen 500 mg 02/11/23 16:28 02/12/23 02:32 Acetaminophen 500 Mg Tablet PO 500 mg Q4H PRN Administration fever Amiodarone HCl 200 mg 02/12/23 09:00 02/12/23 09:15 Amiodarone 200 Mg Tablet PO 200 mg BID ADRIENNE Administration Aspirin 81 mg 02/12/23 06:00 02/12/23 05:21 Aspirin 81 Mg Ec Tablet PO 81 mg QAM ADRIENNE Administration Atorvastatin Calcium 80 mg 02/11/23 21:00 02/11/23 21:11 Atorvastatin 40 Mg Tablet PO 80 mg BEDTIME ADRIENNE Administration Digoxin 125 mcg 02/12/23 09:00 02/12/23 09:16 Digoxin 125 Mcg Tablet PO 125 mcg DAILY ADRIENNE Administration Furosemide 40 mg 02/11/23 19:35 02/12/23 09:15 Furosemide 10 Mg/Ml Sdv 4ml IVP 40 mg Q12H ADRIENNE Administration Hydralazine HCl 25 mg 02/11/23 18:00 02/12/23 09:56 Hydralazine 25 Mg Tablet PO Not Given BID ADRIENNE Levothyroxine Sodium 50 mcg 02/11/23 18:00 02/11/23 17:42 Levothyroxine 50 Mcg Tablet PO 50 mcg QPM ADRIENNE Administration Losartan Potassium 100 mg 02/12/23 06:00 02/12/23 05:21 Losartan 50 Mg Tablet PO 100 mg QAM ADRIENNE Administration Rivaroxaban 20 mg 02/12/23 09:00 02/12/23 09:15 Rivaroxaban 10 Mg Tablet PO 20 mg DAILY ADRIENNE Administration Ropinirole HCl 2 mg 02/11/23 18:00 02/12/23 09:15 Ropinirole 2 Mg Tablet PO 2 mg BID ADRIENNE Administration Tamsulosin HCl 0.4 mg 02/11/23 21:00 02/11/23 21:11 Tamsulosin 0.4 Mg Capsule PO 0.4 mg BEDTIME ADRIENNE Administration Tramadol HCl 50 mg 02/11/23 16:28 02/12/23 07:47 Tramadol 50 Mg Tablet PO 50 mg BID PRN Administration Pain PFSH Acute PFSH: Medical History CHF (congestive heart failure), NYHA class III Unstable angina BPH loc w urin obs/LUTS Lower urinary tract symptoms (LUTS) Spinal osteoarthritis Acute thoracic back pain Restless leg syndrome Chronic arthritis Allergic rhinitis Hereditary hemochromatosis Hypertension Restless legs syndrome (RLS) CAD (coronary artery disease) Hyperlipidemia Surgical History Hx of cardiac catheterization History of coronary artery stent placement Hx of hernia repair Hx of colonoscopy Family History Mother , at age 94 Cancer Breast cancer Father , at age 88 Prostate cancer Social History Smoking and tobacco/nicotine status: never used tobacco/nicotine Alcohol intake: never Household members: spouse Marital status: Current occupational status: employed Vitals/I&O/Wt Last Vital Signs Temp 98.0 F 02/12/23 07:58 Pulse 113 H 02/12/23 15:04 Resp 23 H 02/12/23 15:04 BP 119/74 02/12/23 15:04 Pulse Ox 95 02/12/23 15:04 O2 Del Method Room Air 02/12/23 15:04 02/12/23 02/12/23 02/12/23 06:59 14:59 22:59 Intake Total 300 / 660 240 / 240 360 / 600 Output Total 0 / 400 380 / 380 280 / 660 Balance 300 / 260 -140 / -140 80 / -60 Weight last 48 hrs Weight 252 lb 14.4 oz Weight 250 lb Physical Exam Narrative: GENERAL: Patient is alert, awake and oriented x3. [] NECK: No jugular vein distension. [] HEENT: No cyanosis. No icterus. No pallor. [] HEART: Tachycardia, irregularly irregular LUNGS: Clear to auscultate bilaterally. [] CENTRAL NERVOUS SYSTEM: Grossly nonfocal. [] EXTREMITIES: Lower extremities with 1+ edema bilaterally. Data 02/13/23 03:42 02/13/23 03:42 A&P Assessment and plan (1) Hyperlipidemia: Qualifiers: Hyperlipidemia type: unspecified Qualified Code(s): E78.5 - Hyperlipidemia, unspecified (2) CAD (coronary artery disease): (3) Hypertension: Qualifiers: Hypertension type: primary hypertension Qualified Code(s): I10 - Essential (primary) hypertension (4) Atrial fibrillation with RVR: Plan Patient has A-fib with RVR. Continue amiodarone. Continue digoxin. We will start metoprolol. If heart rate is not controlled by tomorrow, we will plan on FILIPE cardioversion in 2 days. Continue anticoagulation. Order echocardiogram. Patient will need stress test as had chest pain with rapid ventricular rate. However can be done as outpatient. Thank you for involving us with care of this patient. Will continue to follow. Please call with questions. Consult Attestations Medical Necessity Statement: Care expected to cross 2 midnights. Coding Level of Care Code Acute Code for [facility] Fwd Diagnoses Hyperlipidemia, unspecified hyperlipidemia type E78.5 Hyperlipidemia type: unspecified Coronary artery disease involving [place] coronary artery of [place] heart without angina pectoris I25.10 Primary hypertension I10 Hypertension type: primary hypertension Atrial fibrillation with RVR I48.91
--- NOTE | 2023-02-12 16:44 | USCV_ITS ---
Lavon Boone Age: 72 Gender: M : 1950 Exam Date: 02/12/2023 18:10 Ordering Phys: Harish Thompson M.D ([email or web address]) Technologist: RISSA [place] [facility] [place]: Atrial Fibrillation with RVR. s/p cardiac catheterization 2 cardiac stents. BP: 119 / 74 HR: 90 Rhythm: Atrial fibrillation Technical Quality: Adequate with [employer] MEASUREMENTS (Male / Female) Normal Values 2D ECHO LV Diastolic Diameter PLAX 3.4 cm 4.2 - 5.9 / 3.9 - 5.3 cm LV Systolic Diameter PLAX 2.3 cm IVS Diastolic Thickness 1.7 cm 0.6 - 1.0 / 0.6 - 0.9 cm IVS Systolic Thickness 2.2 cm LVPW Diastolic Thickness 1.7 cm 0.6 - 1.0 / 0.6 - 0.9 cm LVPW Systolic Thickness 1.7 cm LVOT Diameter 2.4 cm LV Ejection Fraction 2D Teich 60.9 % LV Ejection Fraction MOD 2C 62.6 % LV Ejection Fraction 2C AL 62.8 % LA Diameter 5.1 cm LA Width 5.7 cm LA Height 6.1 cm RA Width 2.3 cm RA Height 5.3 cm Aorta at Sinotubular Diameter 4.0 cm IVC Diameter 1.7 cm M-MODE Aortic Annulus Diameter 4.1 cm LA Ao Ratio MM 1.4 MV E Point Septal Separation 0.3 cm DOPPLER AV Peak Velocity 108.0 cm/s LVOT Peak Velocity 81.0 cm/s AV Area Cont Eq vti 3.9 cm squared AV Area Cont Eq pk 3.4 cm squared MV Area PHT 3.3 cm squared MV E' Velocity 34.5 cm/s Mitral E to MV E' Ratio 9.0 Mitral E to LV E' Lateral Ratio 9.2 Mitral E to LV E' Septal Ratio 9.0 TV Peak E Velocity 39.0 cm/s PV Peak Velocity 77.0 cm/s RV Acceleration Time 0.1 s RV Ejection Time 0.4 s RV AcT/ET 0.2 FINDINGS Left Ventricle Left ventricle is normal in size. LV systolic function is normal with EF of 55 to 60%. No regional wall motion abnormalities are seen. Diastolic function is indeterminate because of atrial fibrillation. Right Ventricle Normal in size and function Right Atrium Normal in size Left Atrium Dilated Mitral Valve Grossly normal. Mild mitral regurgitation Aortic Valve Structurally normal aortic valve. No significant stenosis or regurgitation seen. Tricuspid Valve Not well visualized Pulmonic Valve Mild pulmonic regurgitation Pericardium Normal Aorta Mildly dialted ascending aorta with diameter of 3.6cm IVC Appears to be normal CONCLUSIONS LV systolic function is normal with EF of 55 to 60%. Diastolic function is indeterminate because of atrial fibrillation. Left atrial dilation. Mild mitral regurgitation. Mild pulmonic regurgitation. Mildly dilated ascending aorta. Compared to prior echocardiogram from 09/24/2021, no significant changes are seen Harish Thompson MD (Electronically Signed) Final Date: 13 February 2023 12:13 S
[2023-02-12] MEDS: levothyroxine 50 mcg Tablet PO (18:04)
[2023-02-12] MEDS: tamsulosin 0.4 mg Capsule PO (20:37)
[2023-02-12] MEDS: atorvastatin 40 mg Tablet 80 MG PO (20:37)
[2023-02-13] VITALS (13 sets, daily range): BP systolic 91–126; BP diastolic 62–82; PULSE 75–118; RESP 12–22; TEMP 36.4–36.5; O2SAT 92–95
[2023-02-13 04:34] LABS: Basophils # 0.1 10^3/uL (0.0-0.1); Basophils % 0.8 %; Eosinophils # 0.1 10^3/uL (0.0-0.8); Eosinophils % 1.1 %; Hematocrit 50.5 % (37-53); Lymphocytes # 2.1 10^3/uL (0.8-4.8); Lymphocytes % 22.6 %; Mean Corpuscular HGB Conc 34.1 g/dL (30-55); Mean Corpuscular Hemoglobin 32.8 pg (27-33); Mean Corpuscular Volume 96.2 fl (82-101); Mean Platelet Volume 9.9 fL (7.4-10.4); Monocytes # 1.2 10^3/uL (0.2-0.9); Monocytes % 12.6 %; Neutrophils # 5.81 10^3/uL (1.8-7.7); Neutrophils % 62.4 %; Nucleated Red Blood Cells % 0 %; Platelet Count 159 10^3/cmm (157-399); Red Blood Count 5.25 10^6/uL (3.85-5.65); Red Cell Distribution Width 13.2 % (12.1-15.1)
[2023-02-13 05:05] LABS: Anion Gap 18.9 (5-19); Blood Urea Nitrogen 29 mg/dL (8-23); Calcium 9.2 mg/dL (8.5-10.5); Carbon Dioxide 21 mmol/L (22-29); Chloride 100 mmol/L (98-107); Glucose 90 mg/dL (65-115); Osmolality Calculated 287 mOsm/kg (285-295); Potassium 3.9 mmol/L (3.5-5.1); Sodium 136 mmol/L (136-145)
[2023-02-13 05:06] LABS: Thyroid Stimulating Hormone 2.68 uIU/mL (0.27-4.20)
[2023-02-13] MEDS: aspirin 81 mg EC Tablet PO (05:06)
[2023-02-13] MEDS: perflutren protein-a microsphr 0.22 mg/mL SDV 3 mL IV (05:58)
[2023-02-13] MEDS: TRAMadol 50 mg Tablet PO (08:51)
[2023-02-13] MEDS: FUROsemide 10 mg/mL SDV 4mL 40 MG IVP ×2 (08:51→20:23)
[2023-02-13] MEDS: amiodarone 200 mg Tablet PO ×2 (08:52→17:32)
[2023-02-13] MEDS: rivaroxaban 10 mg Tablet 20 MG PO (08:52)
[2023-02-13] MEDS: ropinirole 2 mg Tablet PO ×2 (08:52→17:32)
[2023-02-13] MEDS: digoxin 125 mcg Tablet PO (08:52)
[2023-02-13] MEDS: metoprolol tartrate 25 mg Tablet PO ×2 (10:34→20:22)
--- NOTE | 2023-02-13 16:59 | P.PN_ITS ---
Subjective 2 Subjective: Patient is doing well. Heart rate is better since starting metoprolol Vitals/I&O/Wt Last Vital Signs Temp 97.6 F 02/13/23 16:03 Pulse 76 02/13/23 16:03 Resp 12 02/13/23 16:03 BP 107/74 02/13/23 16:03 Pulse Ox 95 02/13/23 16:03 O2 Del Method Room Air 02/13/23 16:03 02/13/23 02/13/23 02/13/23 06:59 14:59 22:59 Intake Total 200 / 1240 480 / 480 Output Total 400 / 2060 750 / 750 Balance -200 / -820 -270 / -270 Weight last 48 hrs Weight 251 lb 8 oz Weight 252 lb 14.4 oz Physical Exam 2 Narrative: GENERAL: Patient is alert, awake and oriented x3. [] NECK: No jugular vein distension. [] HEENT: No cyanosis. No icterus. No pallor. [] HEART: Tachycardia, irregularly irregular LUNGS: Clear to auscultate bilaterally. [] CENTRAL NERVOUS SYSTEM: Grossly nonfocal. [] EXTREMITIES: Lower extremities with 1+ edema bilaterally. Data 02/14/23 03:42 02/14/23 03:42 A&P Assessment and plan (1) Hyperlipidemia: Qualifiers: Hyperlipidemia type: unspecified Qualified Code(s): E78.5 - Hyperlipidemia, unspecified (2) CAD (coronary artery disease): (3) Hypertension: Qualifiers: Hypertension type: primary hypertension Qualified Code(s): I10 - Essential (primary) hypertension (4) Atrial fibrillation with RVR: Plan Patient's heart rate is better since starting metoprolol. However still when he gets up at becomes elevated. If heart rate is not controlled or he does not convert to normal rhythm by tomorrow, we will plan on FILIPE cardioversion. Continue anticoagulation. Continue amiodarone and digoxin. Echo shows normal LV systolic function Patient will need stress test as had chest pain with rapid ventricular rate. However can be done as outpatient. Thank you for involving us with care of this patient. Will continue to follow. Please call with questions. Attestations 2 Medical Necessity Statement*: Care expected to cross 2 midnights. Coding Level of Care Code Acute Code for [facility] Fwd Diagnoses Hyperlipidemia, unspecified hyperlipidemia type E78.5 Hyperlipidemia type: unspecified Coronary artery disease involving [place] coronary artery of [place] heart without angina pectoris I25.10 Primary hypertension I10 Hypertension type: primary hypertension Atrial fibrillation with RVR I48.91
[2023-02-13] MEDS: levothyroxine 50 mcg Tablet PO (17:32)
[2023-02-13] MEDS: acetaminophen 500 mg Tablet PO (17:38)
--- NOTE | 2023-02-13 18:56 | PC.NURSE ---
shift note Pt Heart rate all afternoon post first dose of metoprolol has been running in between upper 70s to 90s, afib. Pt stated he is a little drowsy after taking the metoprolol. Pt has been re-educated of the common side effect of this medication. Pt teaches back and verbalizes understanding.
[2023-02-13] MEDS: atorvastatin 40 mg Tablet 80 MG PO (20:22)
[2023-02-13] MEDS: tamsulosin 0.4 mg Capsule PO (20:23)
--- NOTE | 2023-02-13 21:28 | P.PN_ITS ---
Subjective 2 Subjective: He states he is doing okay. Denies chest pain or pressure. Later on complaining of constipation. Vitals/I&O/Wt Last Vital Signs Temp 97.5 F L 02/13/23 19:32 Pulse 77 02/13/23 21:02 Resp 18 02/13/23 21:02 BP 113/74 02/13/23 19:32 Pulse Ox 95 02/13/23 21:02 O2 Del Method Room Air 02/13/23 21:02 02/13/23 02/13/23 02/13/23 06:59 14:59 22:59 Intake Total 200 / 1240 480 / 480 480 / 960 Output Total 400 / 2060 750 / 750 230 / 980 Balance -200 / -820 -270 / -270 250 / -20 Weight last 48 hrs Weight 114.078 kg Weight 114.714 kg Data 02/13/23 03:42 02/13/23 03:42 A&P Assessment and plan (1) CHF (congestive heart failure), NYHA class III: Qualifiers: Congestive heart failure type: combined Congestive heart failure chronicity: chronic Qualified Code(s): I50.42 - Chronic combined systolic (congestive) and diastolic (congestive) heart failure (2) CAD (coronary artery disease): (3) Atrial fibrillation with RVR: (4) On amiodarone therapy: (5) Atrial fibrillation: (6) Hypothyroidism (acquired): (7) Hereditary hemochromatosis: (8) BPH loc w urin obs/LUTS: (9) Dyspnea: Plan Symptomatic A-fib with RVR Diastolic CHF exacerbation It seems like A-fib RVR contributed to congestive heart failure decompensation Discussed with cardiology. Continue optimization of heart rate control. Metoprolol added. Monitor heart rate. Continue amiodarone, digoxin. Consideration of cardioversion discussed. Continue IV diuretics. Monitor weights, LUIS DANIEL. Noted in negative balance. At risk of electrolyte deficiency, reassess chemistry. Reviewed vitals, CBC, BMP. Repeat chemistry requested. Check magnesium. Reviewed cardiology note. Echocardiogram reviewed. Continue diuresis Discussed with immigration case worker. 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 and High MDM includes amount and/or complexity of data reviewed/ordered [ previous or external records, resulted lab(s)/test(s), ordered lab(s)/test(s) and other healthcare professional discussion] and described risk of complication, morbidity or mortality of management as documented Diagnoses Chronic combined systolic and diastolic congestive heart failure, NYHA class 3 I50.42 Congestive heart failure type: combined Congestive heart failure chronicity: chronic Coronary artery disease involving [place] coronary artery of [place] heart without angina pectoris I25.10 Atrial fibrillation with RVR I48.91 On amiodarone therapy Z79.899 Atrial fibrillation I48.91 Hypothyroidism (acquired) E03.9 Hereditary hemochromatosis E83.110 BPH loc w urin obs/LUTS N40.1 Dyspnea R06.00
[2023-02-14] VITALS (12 sets, daily range): BP systolic 102–136; BP diastolic 72–90; PULSE 67–106; RESP 13–30; TEMP 36.4–36.7; O2SAT 93–96
[2023-02-14 04:01] LABS: Basophils % 0.5 %; Eosinophils # 0.1 10^3/uL (0.0-0.8); Eosinophils % 1.1 %; Hematocrit 51.2 % (37-53); Lymphocytes # 2.2 10^3/uL (0.8-4.8); Lymphocytes % 25.9 %; Mean Corpuscular HGB Conc 34.4 g/dL (30-55); Mean Corpuscular Volume 95.9 fl (82-101); Monocytes # 0.8 10^3/uL (0.2-0.9); Monocytes % 9.5 %; Neutrophils # 5.18 10^3/uL (1.8-7.7); Neutrophils % 62.5 %; Nucleated Red Blood Cells % 0 %; Platelet Count 150 10^3/cmm (157-399); Red Blood Count 5.34 10^6/uL (3.85-5.65); Red Cell Distribution Width 13.2 % (12.1-15.1); White Blood Count 8.29 10^3/uL (3.29-11.43)
[2023-02-14 04:21] LABS: Anion Gap 14.6 (5-19); Blood Urea Nitrogen 30 mg/dL (8-23); Calcium 9.3 mg/dL (8.5-10.5); Carbon Dioxide 23 mmol/L (22-29); Chloride 97 mmol/L (98-107); Glucose 130 mg/dL (65-115); Magnesium 2.5 mg/dL (1.7-2.3); Osmolality Calculated 280 mOsm/kg (285-295); Potassium 3.6 mmol/L (3.5-5.1); Sodium 131 mmol/L (136-145)
[2023-02-14] MEDS: aspirin 81 mg EC Tablet PO (05:39)
[2023-02-14] MEDS: FUROsemide 10 mg/mL SDV 4mL 40 MG IVP (06:39)
--- NOTE | 2023-02-14 08:55 | PM.PN ---
Subjective Subjective: Patient had successful FILIPE cardioversion today. He is feeling better today. Vitals/I&O/Wt Last Vital Signs Temp 97.7 F 02/14/23 08:00 Pulse 91 02/14/23 08:00 Resp 30 H 02/14/23 08:00 BP 123/78 02/14/23 08:00 Pulse Ox 94 02/14/23 08:00 O2 Del Method Room Air 02/14/23 08:00 02/13/23 02/14/23 02/14/23 22:59 06:59 14:59 Intake Total 980 / 1460 480 / 1940 Output Total 1130 / 1880 600 / 2480 700 / 700 Balance -150 / -420 -120 / -540 -700 / -700 Weight last 48 hrs Weight 246 lb 11.2 oz Weight 251 lb 8 oz Physical Exam Narrative: GENERAL: Patient is alert, awake and oriented x3. [] NECK: No jugular vein distension. [] HEENT: No cyanosis. No icterus. No pallor. [] HEART: Tachycardia, irregularly irregular LUNGS: Clear to auscultate bilaterally. [] CENTRAL NERVOUS SYSTEM: Grossly nonfocal. [] EXTREMITIES: Lower extremities with 1+ edema bilaterally. Data 02/15/23 02:52 02/15/23 02:52 A&P Assessment and plan (1) Hyperlipidemia: Qualifiers: Hyperlipidemia type: unspecified Qualified Code(s): E78.5 - Hyperlipidemia, unspecified (2) CAD (coronary artery disease): (3) Hypertension: Qualifiers: Hypertension type: primary hypertension Qualified Code(s): I10 - Essential (primary) hypertension (4) Atrial fibrillation with RVR: Plan The patient's heart rate again became uncontrolled this morning and he underwent successful FILIPE cardioversion back to normal sinus rhythm. Will restart low-dose of metoprolol at 25 mg twice daily tomorrow. Continue amiodarone. At time of discharge digoxin can be stopped. As outpatient we will refer for A-fib ablation evaluation. Continue anticoagulation Thank you for involving us with care of this patient. Will continue to follow. Please call with questions. Attestations Medical Necessity Statement*: Care expected to cross 2 midnights. Coding Level of Care Code Acute Code for [facility] Fwd Diagnoses Hyperlipidemia, unspecified hyperlipidemia type E78.5 Hyperlipidemia type: unspecified Coronary artery disease involving [place] coronary artery of [place] heart without angina pectoris I25.10 Primary hypertension I10 Hypertension type: primary hypertension Atrial fibrillation with RVR I48.91
[2023-02-14] MEDS: amiodarone 200 mg Tablet PO ×2 (10:00→18:55)
[2023-02-14] MEDS: rivaroxaban 10 mg Tablet 20 MG PO (10:00)
[2023-02-14] MEDS: ropinirole 2 mg Tablet PO ×2 (10:00→18:55)
[2023-02-14] MEDS: digoxin 125 mcg Tablet PO (10:00)
--- NOTE | 2023-02-14 11:00 | P.ANESASSM_ITS ---
Pre-Anesthetic Assessment Height/Weight: Height 1.78 m Weight 116.392 kg Temp Pulse Resp BP Pulse Ox O2 Del Method 97.6 F 66 29 H 146/76 94 Nasal Cannula 02/15/23 04:00 02/15/23 06:00 02/15/23 04:00 02/15/23 04:00 02/15/23 04:00 02/15/23 04:00 Preop Diagnosis: Atrial fibrillation with RVR FILIPE/CV Familial anesthetic complications: none Was Beta Kath taken within 24 hours: N/A Was Clonidine taken within 24 hours: N/A Last intake: 799 Social No alcohol and No tobacco Exam alert, oriented x 3, clear to auscultation bilaterally and regular rate & rhythm Airway Mallampati: Class II Dentition: full CV/HEM Atrial Fibrillation, Coronary Artery Disease and Hypertension Anesthetic Plan ASA status: 4 Anesthesia: MAC Medications/Allergies Home Medications Medication Instructions Recorded Confirmed Last Taken Type albuterol sulfate 90 mcg/actuation 2 puff inhalation Q6H PRN 01/24/22 02/11/23 Unknown Rx aerosol inhaler (ProAir HFA) shortness of breath or wheezing #8.5 grams atorvastatin 80 mg tablet 80 mg PO BEDTIME #90 tabs 09/16/22 02/11/23 02/10/23 Rx hydralazine 25 mg tablet 25 mg PO BID #180 tabs 12/02/22 02/11/23 02/10/23 Rx nitroglycerin 0.4 mg sublingual See Rx Instructions .Route 12/06/22 02/11/23 Unknown Rx tablet .COMPLEX #25 tabs ropinirole 2 mg tablet 2 mg PO BID 90 days #180 tabs 12/10/22 02/11/23 02/11/23 Rx tamsulosin 0.4 mg capsule 0.4 mg PO BEDTIME 90 days #90 caps 12/10/22 02/11/23 02/10/23 Rx amiodarone 200 mg tablet 100 mg (1/2 x 200 mg) PO BID #30 02/06/23 02/11/23 02/11/23 Rx tabs amlodipine 10 mg tablet 10 mg PO QAM 02/06/23 02/11/23 02/11/23 History aspirin 81 mg tablet,delayed 81 mg PO QAM 02/06/23 02/11/23 02/11/23 History release levothyroxine 50 mcg tablet 50 mcg PO QPM 02/06/23 02/11/23 02/11/23 History rivaroxaban 20 mg tablet (Xarelto) 20 mg PO DAILY 02/06/23 02/11/23 02/11/23 History telmisartan 80 1 tab PO QAM 02/06/23 02/11/23 02/11/23 History mg-hydrochlorothiazide 12.5 mg tablet furosemide 20 mg tablet 40 mg PO BID 02/11/23 02/11/23 02/11/23 History tramadol 50 mg tablet 50 mg PO BID PRN Pain 02/11/23 02/11/23 Unknown History Allergies Allergy/AdvReac Type Severity Reaction Status Date / Time hydrocodone Allergy ADR-Abdominal Verified 12/10/22 07:51 Pain meperidine [From Demerol] Allergy Unknown Verified 12/10/22 07:51 Current Medications Generic Name Dose Route Start Last Admin Trade Name Freq PRN Reason Stop Dose Admin Acetaminophen 500 mg 02/11/23 16:28 02/15/23 01:43 Acetaminophen 500 Mg Tablet PO 500 mg Q4H PRN Administration fever Amiodarone HCl 200 mg 02/12/23 09:00 02/14/23 18:55 Amiodarone 200 Mg Tablet PO 200 mg BID ADRIENNE Administration Aspirin 81 mg 02/12/23 06:00 02/15/23 05:58 Aspirin 81 Mg Ec Tablet PO 81 mg QAM ADRIENNE Administration Atorvastatin Calcium 80 mg 02/11/23 21:00 02/14/23 20:39 Atorvastatin 40 Mg Tablet PO 80 mg BEDTIME ADRIENNE Administration Digoxin 125 mcg 02/12/23 09:00 02/14/23 10:00 Digoxin 125 Mcg Tablet PO 125 mcg DAILY ADRIENNE Administration Hydralazine HCl 25 mg 02/11/23 18:00 02/12/23 09:56 Hydralazine 25 Mg Tablet PO Not Given BID ADRIENNE Levothyroxine Sodium 50 mcg 02/11/23 18:00 02/14/23 18:55 Levothyroxine 50 Mcg Tablet PO 50 mcg QPM ADRIENNE Administration Losartan Potassium 100 mg 02/12/23 06:00 02/12/23 05:21 Losartan 50 Mg Tablet PO 100 mg QAM ADRIENNE Administration Metoprolol Tartrate 25 mg 02/13/23 09:55 02/13/23 20:22 Metoprolol Tartrate 25 Mg Tablet PO 25 mg BID@0900,2100 ADRIENNE Administration Polyethylene Glycol 17 gm 02/13/23 21:30 02/14/23 19:55 Polyethylene Glycol 3350 Pkt 17 Gm PO Not Given BID ADRIENNE Rivaroxaban 20 mg 02/12/23 09:00 02/14/23 10:00 Rivaroxaban 10 Mg Tablet PO 20 mg DAILY ADRIENNE Administration Ropinirole HCl 2 mg 02/11/23 18:00 02/14/23 18:55 Ropinirole 2 Mg Tablet PO 2 mg BID ADRIENNE Administration Tamsulosin HCl 0.4 mg 02/11/23 21:00 02/14/23 20:39 Tamsulosin 0.4 Mg Capsule PO 0.4 mg BEDTIME ADRIENNE Administration Tramadol HCl 50 mg 02/11/23 16:28 02/14/23 20:39 Tramadol 50 Mg Tablet PO 50 mg BID PRN Administration Pain PFSH Anesthesia Medical History CHF (congestive heart failure), NYHA class III Unstable angina BPH loc w urin obs/LUTS Lower urinary tract symptoms (LUTS) Spinal osteoarthritis Acute thoracic back pain Restless leg syndrome Chronic arthritis Allergic rhinitis Hereditary hemochromatosis Hypertension Restless legs syndrome (RLS) CAD (coronary artery disease) Hyperlipidemia Surgical History Hx of cardiac catheterization History of coronary artery stent placement Hx of hernia repair Hx of colonoscopy Family History Mother , at age 94 Cancer Breast cancer Father , at age 88 Prostate cancer Social History Smoking and tobacco/nicotine status: never used tobacco/nicotine Alcohol intake: never Household members: spouse Marital status: Current occupational status: employed Data Anesthesia 02/15/23 02:52 02/15/23 02:52 Short CBC 02/14/23 02/15/23 Range/Units 03:42 02:52 WBC 8.29 9.84 (3.29-11.43) 10^3/uL Hgb 17.60 H 17.90 H (11.27-16.99) g/dL Hct 51.2 52.9 (37-53) % MCV 95.9 98.1 (82-101) fl Plt Count 150 L 154 L (157-399) 10^3/cmm Neut % (Auto) 62.5 71.8 % Neut # (Auto) 5.18 7.07 (1.8-7.7) 10^3/uL BMP 02/14/23 02/15/23 03:42 02:52 Sodium 131 L 133 L Potassium 3.6 4.6 Chloride 97 L 96 L Carbon Dioxide 23 26 BUN 30 H 32 H Creatinine 1.2 1.0 Glucose 130 H 112 Calcium 9.3 9.2 Cardiac Studies: 2 Echocardiogram 02/12/23 Transesophageal Echocardiogram 02/18/19
--- NOTE | 2023-02-14 11:58 | P.ANESASSM_ITS ---
Pre-Anesthetic Assessment Height/Weight: Height 1.78 m Weight 111.901 kg Temp Pulse Resp BP Pulse Ox O2 Del Method 97.7 F 106 H 18 123/78 95 Room Air 02/14/23 08:00 02/14/23 10:00 02/14/23 08:45 02/14/23 08:00 02/14/23 08:45 02/14/23 08:45 FILIPE cardioversion Familial anesthetic complications: None Was Beta Kath taken within 24 hours: N/A Was Clonidine taken within 24 hours: N/A Last intake: > 8 hrs Social No alcohol and No tobacco Exam alert, oriented x 3, clear to auscultation bilaterally and regular rate & rhythm Airway Mallampati: Class II Dentition: full CV/HEM Atrial Fibrillation, Coronary Artery Disease, Congestive Heart Failure and Hypertension Metabolic Thyroid Disease Anesthetic Plan ASA status: 4 Anesthesia: MAC Risk of > 500 ml blood loss (7ml/kg in children): No Medications/Allergies Home Medications Medication Instructions Recorded Confirmed Last Taken Type albuterol sulfate 90 mcg/actuation 2 puff inhalation Q6H PRN 01/24/22 02/11/23 Unknown Rx aerosol inhaler (ProAir HFA) shortness of breath or wheezing #8.5 grams atorvastatin 80 mg tablet 80 mg PO BEDTIME #90 tabs 09/16/22 02/11/23 02/10/23 Rx hydralazine 25 mg tablet 25 mg PO BID #180 tabs 12/02/22 02/11/23 02/10/23 Rx nitroglycerin 0.4 mg sublingual See Rx Instructions .Route 12/06/22 02/11/23 Unknown Rx tablet .COMPLEX #25 tabs ropinirole 2 mg tablet 2 mg PO BID 90 days #180 tabs 12/10/22 02/11/23 02/11/23 Rx tamsulosin 0.4 mg capsule 0.4 mg PO BEDTIME 90 days #90 caps 12/10/22 02/11/23 02/10/23 Rx amiodarone 200 mg tablet 100 mg (1/2 x 200 mg) PO BID #30 02/06/23 02/11/23 02/11/23 Rx tabs amlodipine 10 mg tablet 10 mg PO QAM 02/06/23 02/11/23 02/11/23 History aspirin 81 mg tablet,delayed 81 mg PO QAM 02/06/23 02/11/23 02/11/23 History release levothyroxine 50 mcg tablet 50 mcg PO QPM 02/06/23 02/11/23 02/11/23 History rivaroxaban 20 mg tablet (Xarelto) 20 mg PO DAILY 02/06/23 02/11/23 02/11/23 History telmisartan 80 1 tab PO QAM 02/06/23 02/11/23 02/11/23 History mg-hydrochlorothiazide 12.5 mg tablet furosemide 20 mg tablet 40 mg PO BID 02/11/23 02/11/23 02/11/23 History tramadol 50 mg tablet 50 mg PO BID PRN Pain 02/11/23 02/11/23 Unknown History Allergies Allergy/AdvReac Type Severity Reaction Status Date / Time hydrocodone Allergy ADR-Abdominal Verified 12/10/22 07:51 Pain meperidine [From Demerol] Allergy Unknown Verified 12/10/22 07:51 Current Medications Generic Name Dose Route Start Last Admin Trade Name Freq PRN Reason Stop Dose Admin Acetaminophen 500 mg 02/11/23 16:28 02/13/23 17:38 Acetaminophen 500 Mg Tablet PO 500 mg Q4H PRN Administration fever Amiodarone HCl 200 mg 02/12/23 09:00 02/14/23 10:00 Amiodarone 200 Mg Tablet PO 200 mg BID ADRIENNE Administration Aspirin 81 mg 02/12/23 06:00 02/14/23 05:39 Aspirin 81 Mg Ec Tablet PO 81 mg QAM ADRIENNE Administration Atorvastatin Calcium 80 mg 02/11/23 21:00 02/13/23 20:22 Atorvastatin 40 Mg Tablet PO 80 mg BEDTIME ADRIENNE Administration Digoxin 125 mcg 02/12/23 09:00 02/14/23 10:00 Digoxin 125 Mcg Tablet PO 125 mcg DAILY ADRIENNE Administration Furosemide 40 mg 02/11/23 19:35 02/14/23 06:39 Furosemide 10 Mg/Ml Sdv 4ml IVP 40 mg Q12H ADRIENNE Administration Hydralazine HCl 25 mg 02/11/23 18:00 02/12/23 09:56 Hydralazine 25 Mg Tablet PO Not Given BID ADRIENNE Levothyroxine Sodium 50 mcg 02/11/23 18:00 02/13/23 17:32 Levothyroxine 50 Mcg Tablet PO 50 mcg QPM ADRIENNE Administration Losartan Potassium 100 mg 02/12/23 06:00 02/12/23 05:21 Losartan 50 Mg Tablet PO 100 mg QAM ADRIENNE Administration Metoprolol Tartrate 25 mg 02/13/23 09:55 02/13/23 20:22 Metoprolol Tartrate 25 Mg Tablet PO 25 mg BID@0900,2100 ADRIENNE Administration Polyethylene Glycol 17 gm 02/13/23 21:30 02/14/23 10:00 Polyethylene Glycol 3350 Pkt 17 Gm PO Not Given BID ADRIENNE Rivaroxaban 20 mg 02/12/23 09:00 02/14/23 10:00 Rivaroxaban 10 Mg Tablet PO 20 mg DAILY ADRIENNE Administration Ropinirole HCl 2 mg 02/11/23 18:00 02/14/23 10:00 Ropinirole 2 Mg Tablet PO 2 mg BID ADRIENNE Administration Tamsulosin HCl 0.4 mg 02/11/23 21:00 02/13/23 20:23 Tamsulosin 0.4 Mg Capsule PO 0.4 mg BEDTIME ADRIENNE Administration Tramadol HCl 50 mg 02/11/23 16:28 02/13/23 08:51 Tramadol 50 Mg Tablet PO 50 mg BID PRN Administration Pain PFSH Anesthesia Medical History CHF (congestive heart failure), NYHA class III Unstable angina BPH loc w urin obs/LUTS Lower urinary tract symptoms (LUTS) Spinal osteoarthritis Acute thoracic back pain Restless leg syndrome Chronic arthritis Allergic rhinitis Hereditary hemochromatosis Hypertension Restless legs syndrome (RLS) CAD (coronary artery disease) Hyperlipidemia Surgical History Hx of cardiac catheterization History of coronary artery stent placement Hx of hernia repair Hx of colonoscopy Family History Mother , at age 94 Cancer Breast cancer Father , at age 88 Prostate cancer Social History Smoking and tobacco/nicotine status: never used tobacco/nicotine Alcohol intake: never Household members: spouse Marital status: Current occupational status: employed Data Anesthesia 02/14/23 03:42 02/14/23 03:42 Short CBC 02/13/23 02/14/23 Range/Units 03:42 03:42 WBC 9.30 8.29 (3.29-11.43) 10^3/uL Hgb 17.20 H 17.60 H (11.27-16.99) g/dL Hct 50.5 51.2 (37-53) % MCV 96.2 95.9 (82-101) fl Plt Count 159 150 L (157-399) 10^3/cmm Neut % (Auto) 62.4 62.5 % Neut # (Auto) 5.81 5.18 (1.8-7.7) 10^3/uL BMP 02/13/23 02/14/23 03:42 03:42 Sodium 136 131 L Potassium 3.9 3.6 Chloride 100 97 L Carbon Dioxide 21 L 23 BUN 29 H 30 H Creatinine 1.2 1.2 Glucose 90 130 H Calcium 9.2 9.3 Cardiac Studies: 2 Echocardiogram 02/12/23 Transesophageal Echocardiogram 02/18/19
--- NOTE | 2023-02-14 14:00 | USCV_ITS ---
Lavon Boone Age: 72 Gender: M : 1950 Exam Date: 02/14/2023 16:02 Ordering Phys: Harish Thompson M.D ([email or web address]) Technologist: Fabiano Gaona [place] [facility] [place]: [place] BP: / HR: Rhythm: Sinus Technical Quality: Adequate MEASUREMENTS (Male / Female) Normal Values Medications Complications None Proc. Components After anesthesia team administered sedation, we proceeded with insertion of the probe. FINDINGS Left Ventricle LV systolic function is normal. Right Ventricle Normal in size and function Right Atrium Normal in size Left Atrium Grossly normal LA Appendage No left atrial appendage thrombus seen IA Septum Normal Mitral Valve Structurally normal valve. Aortic Valve Structurally normal aortic valve. Tricuspid Valve Normal Pulmonic Valve Grossly normal Pericardium Normal Aorta Mild plaque CONCLUSIONS LV systolic function is normal. Structurally normal valvular structures No left atrial appendage thrombus seen Harish Thompson MD (Electronically Signed) Final Date: 17 February 2023 15:18 S
--- NOTE | 2023-02-14 16:18 | W.PM.OPSUD ---
Surgery/Procedure H&P Update DATE OF PROCEDURE: February 14, 2023 DATE H&P PERFORMED: 02/12/23 H&P UPDATE INFORMATION: I have reviewed H&P completed within last 30 days, I have examined patient prior to procedure and No changes to prior documentation PREOP DIAGNOSIS: Atrial fibrillation with RVR PRIMARY INDICATION FOR PROCEDURE: Atrial fibrillation with RVR PLANNED PROCEDURE: FILIEP/ Cardioversion Anesthesia team available for procedure
--- NOTE | 2023-02-14 16:19 | P.PCN_ITS ---
Procedure Note: Date of procedure: 02/14/23 Pre-procedure diagnosis: Atrial fibrillation with RVR Post-procedure diagnosis: other (Normal in sinus rhythm) Procedure: FILIPE/ Cardioversion: After anesthesia team sedated the patient, we proceeded with insertion of FILIPE probe. We ruled out left atrial appendage thrombus. This was followed by synchronized cardioversion with 200 J of energy. Patient converted successfully to normal sinus rhythm. Performing Provider: Harish Thompson Complications: None Condition: stable Disposition: no change Coding Level of Care Code Acute Code for [facility]
--- NOTE | 2023-02-14 17:00 | ANE.PACU2 ---
Inpatient post-anesthesia follow up: Airway intact: Yes Vital signs: Temperature 97.6 F Pulse Rate 66 Respiratory Rate 29 Blood Pressure 146/76 Pulse Oximetry 94 Oxygen Delivery Me thod Nasal Cannula Oxygen Flow Rate Fraction of Inspir ed Oxygen Hydration adequate: Yes Nausea and vomiting: No Pain level: 1 Mental status: Baseline
[2023-02-14] MEDS: levothyroxine 50 mcg Tablet PO (18:55)
[2023-02-14] MEDS: TRAMadol 50 mg Tablet PO (20:39)
[2023-02-14] MEDS: atorvastatin 40 mg Tablet 80 MG PO (20:39)
[2023-02-14] MEDS: tamsulosin 0.4 mg Capsule PO (20:39)
[2023-02-15] VITALS (7 sets, daily range): BP systolic 102–146; BP diastolic 56–107; PULSE 65–81; RESP 17–29; TEMP 36.4–36.5; O2SAT 94–97
--- NOTE | 2023-02-15 00:01 | PM.PN ---
Subjective Subjective: Awaiting cardioversion. Denies chest pain pressure shortness of breath. Vitals/I&O/Wt Last Vital Signs Temp 97.6 F 02/14/23 19:34 Pulse 71 02/14/23 21:03 Resp 16 02/14/23 21:03 BP 136/76 02/14/23 19:34 Pulse Ox 93 02/14/23 21:03 O2 Del Method Room Air 02/14/23 21:03 02/14/23 02/14/23 02/15/23 14:59 22:59 06:59 Intake Total 480 / 480 Output Total 1400 / 1400 Balance -920 / -920 Weight last 48 hrs Weight 111.901 kg Weight 114.078 kg Physical Exam Narrative: Sitting up in a chair. Const: COMMON NORMALS: patient oriented x3 and alert GENERAL APPEARANCE: cooperative ORIENTATION/CONSCIOUSNESS: Yes awake HENMT: COMMON NORMALS: oropharynx normal Neck/C-Spine: COMMON NORMALS: no JVD Resp: COMMON NORMALS: normal respiratory effort and clear to auscultation bilaterally AUSCULTATION: clear to auscultation bilaterally Cardio: COMMON NORMALS: no JVD, S1 normal heart sound present, S2 normal heart sound present and No murmurs present (Cardio) RHYTHM: abnormal rhythm irregularly irregular HEART SOUNDS: S1 normal heart sound present and S2 normal heart sound present GI: COMMON NORMALS: Normal to inspection, nondistended, normoactive bowel sounds present, Soft to palpation and non-tender PALPATION: Yes Soft to palpation Extremity: COMMON NORMALS: no joint enlargement and no pedal edema Neuro: COMMON NORMALS: patient oriented x3 and moves all extremities SENSORIUM/ORIENTATION: Yes alert Skin: COMMON NORMALS: no rashes or lesions noted GENERAL SKIN EXAM: no rashes or lesions noted Data 02/14/23 03:42 02/14/23 03:42 A&P Assessment and plan (1) CHF (congestive heart failure), NYHA class III: Qualifiers: Congestive heart failure type: combined Congestive heart failure chronicity: chronic Qualified Code(s): I50.42 - Chronic combined systolic (congestive) and diastolic (congestive) heart failure (2) CAD (coronary artery disease): (3) Atrial fibrillation with RVR: (4) On amiodarone therapy: (5) Atrial fibrillation: (6) Hypothyroidism (acquired): (7) Hereditary hemochromatosis: (8) BPH loc w urin obs/LUTS: (9) Dyspnea: Plan Symptomatic A-fib with RVR. Discussed with cardiology. Plans for cardioversion. Reviewed cardiology note. Continue to monitor with telemetry. Continue amiodarone. Reviewed vitals, CBC, BMP, magnesium. Potassium 3.6, will give supplement. Recheck chemistry. Diastolic CHF exacerbation It seems like A-fib RVR contributed to congestive heart failure decompensation Discussed with telephonic nurse case manager. Continue IV diuretics. Monitor weights, LUIS DANIEL. Noted in negative balance. At risk of electrolyte deficiency, reassess chemistry. Reviewed vitals, CBC, BMP. Repeat chemistry requested. Check magnesium. Reviewed cardiology note. Echocardiogram reviewed. Continue diuresis Discussed with telephonic nurse case manager. 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 Diagnoses Chronic combined systolic and diastolic congestive heart failure, NYHA class 3 I50.42 Congestive heart failure type: combined Congestive heart failure chronicity: chronic Coronary artery disease involving [place] coronary artery of [place] heart without angina pectoris I25.10 Atrial fibrillation with RVR I48.91 On amiodarone therapy Z79.899 Atrial fibrillation I48.91 Hypothyroidism (acquired) E03.9 Hereditary hemochromatosis E83.110 BPH loc w urin obs/LUTS N40.1 Dyspnea R06.00
[2023-02-15] MEDS: potassium chloride ER 20 mEq Tablet PO (01:39)
[2023-02-15] MEDS: acetaminophen 500 mg Tablet PO (01:43)
[2023-02-15 03:10] LABS: Basophils # 0.1 10^3/uL (0.0-0.1); Basophils % 0.6 %; Eosinophils # 0.1 10^3/uL (0.0-0.8); Eosinophils % 0.8 %; Hematocrit 52.9 % (37-53); Lymphocytes # 1.5 10^3/uL (0.8-4.8); Lymphocytes % 15.7 %; Mean Corpuscular HGB Conc 33.8 g/dL (30-55); Mean Corpuscular Hemoglobin 33.2 pg (27-33); Mean Corpuscular Volume 98.1 fl (82-101); Mean Platelet Volume 10.3 fL (7.4-10.4); Monocytes # 1.1 10^3/uL (0.2-0.9); Monocytes % 10.8 %; Neutrophils # 7.07 10^3/uL (1.8-7.7); Neutrophils % 71.8 %; Nucleated Red Blood Cells % 0 %; Platelet Count 154 10^3/cmm (157-399); Red Blood Count 5.39 10^6/uL (3.85-5.65); Red Cell Distribution Width 13.2 % (12.1-15.1); White Blood Count 9.84 10^3/uL (3.29-11.43)
[2023-02-15 03:25] LABS: Blood Urea Nitrogen 32 mg/dL (8-23); Calcium 9.2 mg/dL (8.5-10.5); Carbon Dioxide 26 mmol/L (22-29); Chloride 96 mmol/L (98-107); Glucose 112 mg/dL (65-115); Osmolality Calculated 284 mOsm/kg (285-295); Sodium 133 mmol/L (136-145)
[2023-02-15 03:28] LABS: Anion Gap 15.6 (5-19); Potassium 4.6 mmol/L (3.5-5.1)
[2023-02-15] MEDS: aspirin 81 mg EC Tablet PO (05:58)
--- NOTE | 2023-02-15 08:54 | P.PN_ITS ---
Subjective 2 Subjective: Patient doing well. Staying in normal sinus rhythm Vitals/I&O/Wt Last Vital Signs Temp 97.6 F 02/15/23 04:00 Pulse 66 02/15/23 08:37 Resp 20 H 02/15/23 08:37 BP 146/76 02/15/23 04:00 Pulse Ox 97 02/15/23 08:37 O2 Del Method Room Air 02/15/23 08:37 02/14/23 02/15/23 02/15/23 22:59 06:59 14:59 Intake Total 640 / 1120 Balance 640 / -280 Weight last 48 hrs Weight 256 lb 9.6 oz Weight 246 lb 11.2 oz Physical Exam 2 Narrative: GENERAL: Patient is alert, awake and oriented x3. [] NECK: No jugular vein distension. [] HEENT: No cyanosis. No icterus. No pallor. [] HEART: Regular LUNGS: Clear to auscultate bilaterally. [] CENTRAL NERVOUS SYSTEM: Grossly nonfocal. [] EXTREMITIES: Lower extremities with 1+ edema bilaterally. Data 02/15/23 02:52 02/15/23 02:52 A&P Assessment and plan (1) Hyperlipidemia: Qualifiers: Hyperlipidemia type: unspecified Qualified Code(s): E78.5 - Hyperlipidemia, unspecified (2) CAD (coronary artery disease): (3) Hypertension: Qualifiers: Hypertension type: primary hypertension Qualified Code(s): I10 - Essential (primary) hypertension (4) Atrial fibrillation with RVR: Plan Patient had cardioversion performed yesterday. Continue amiodarone and metoprolol. As outpatient A-fib ablation referral. Will recommend stress test as outpatient as had typical chest pain with afib with RVR Continue anticoagulation with Xarelto Thank you for involving us with care of this patient. Will continue to follow. Please call with questions. Attestations 2 Medical Necessity Statement*: Care expected to cross 2 midnights. Coding Level of Care Code Acute Code for Chg Fwd Diagnoses Hyperlipidemia, unspecified hyperlipidemia type E78.5 Hyperlipidemia type: unspecified Coronary artery disease involving [place] coronary artery of [place] heart without angina pectoris I25.10 Primary hypertension I10 Hypertension type: primary hypertension Atrial fibrillation with RVR I48.91
[2023-02-15] MEDS: FUROsemide 10 mg/mL SDV 4mL 40 MG IVP (09:25)
[2023-02-15] MEDS: ropinirole 2 mg Tablet PO (09:26)
[2023-02-15] MEDS: rivaroxaban 10 mg Tablet 20 MG PO (09:26)
[2023-02-15] MEDS: amiodarone 200 mg Tablet PO (09:26)
[2023-02-15] MEDS: digoxin 125 mcg Tablet PO (09:26)
[2023-02-15] MEDS: polyethylene glycol 3350 Pkt 17 gm PO (09:38)
--- NOTE | 2023-02-15 12:41 | PM.DCS ---
Discharge Providers Date of Admission: 02/11/23 16:00 Date of Discharge: February 15, 2023 Attending Provider at Admission: Margarito Mark MD Attending Provider at Discharge: Duong Samuels Primary Care Provider: Elizabeth Xiao MD Diagnoses at Discharge Discharge Diagnosis (1) Hyperlipidemia: Status: Acute Qualifiers: Hyperlipidemia type: unspecified Qualified Code(s): E78.5 - Hyperlipidemia, unspecified (2) CAD (coronary artery disease): Status: Acute (3) Hypertension: Status: Acute Qualifiers: Hypertension type: primary hypertension Qualified Code(s): I10 - Essential (primary) hypertension (4) Atrial fibrillation with RVR: Status: Acute Reason for Visit Reason for Visit: sob Hospital Course Hospital Course Pleasant 72-year-old gentleman with history of congestive heart failure, CAD, HTN, hereditary hemochromatosis, RLS, BPH, other medical problems was admitted after presenting with shortness of breath, found to be in atrial fibrillation with RVR required treatment with Cardizem drip, without sufficient response to Cardizem and amiodarone, was seen by cardiology, loaded with digoxin, beta-blockers initially were avoided due to concern for history of intolerance with hypotension. Amiodarone dose was increased, was continued on digoxin. Received treatment with IV diuretics for decompensated diastolic CHF. Echocardiogram revealed preserved ejection fraction. As heart rates were still not well-controlled underwent DC cardioversion on 02/14, since then remaining in sinus rhythm, symptomatically significantly improved. Started on low-dose metoprolol a 5 mg twice daily by cardiology and is to continue on amiodarone off digoxin with requested follow-up in office with cardiology and primary provider. Cardiology will consider referral for A-fib ablation evaluation. Asked to follow-up with primary provider with regards to also monitoring for any amiodarone associated adverse effects. Physical Exam Narrative: Sitting up in a chair. Reports he is feeling much better, request to return home. Const: COMMON NORMALS: patient oriented x3 and alert GENERAL APPEARANCE: cooperative ORIENTATION/CONSCIOUSNESS: Yes awake HENMT: COMMON NORMALS: oropharynx normal Neck/C-Spine: COMMON NORMALS: no JVD Resp: COMMON NORMALS: normal respiratory effort and clear to auscultation bilaterally AUSCULTATION: clear to auscultation bilaterally Cardio: COMMON NORMALS: no JVD, S1 normal heart sound present, S2 normal heart sound present and No murmurs present (Cardio) RHYTHM: abnormal rhythm irregularly irregular HEART SOUNDS: S1 normal heart sound present and S2 normal heart sound present GI: COMMON NORMALS: Normal to inspection, nondistended, normoactive bowel sounds present, Soft to palpation and non-tender PALPATION: Yes Soft to palpation Extremity: COMMON NORMALS: no joint enlargement and no pedal edema Neuro: COMMON NORMALS: patient oriented x3 and moves all extremities SENSORIUM/ORIENTATION: Yes alert Skin: COMMON NORMALS: no rashes or lesions noted GENERAL SKIN EXAM: no rashes or lesions noted Discharge Data Studies Completed and Pending Completed Studies During Hospitalization Category Date Time Status XR chest 1V portable [id number] Urgent Exams 02/11/23 13:41 Completed CV. echo wo/w contrast [id number] Routine Ultrasound 02/12/23 16:44 Completed Pending at discharge Category Date Time Status Basic Metabolic Panel AM LABS Lab 02/16/23 04:00 Ordered Complete Blood Count w/Auto AM LABS Lab 02/16/23 04:00 Ordered CV. echo transesophageal [id number] Routine Ultrasound 02/14/23 14:00 Taken Radiology Impressions Chest X-Ray 02/11/23 13:41 IMPRESSION: No evidence for acute cardiopulmonary disease. Laboratory Results WBC 9.84 10^3/uL (3.29-11.43) 02/15/23 02:52 RBC 5.39 10^6/uL (3.85-5.65) 02/15/23 02:52 Hgb 17.90 g/dL (11.27-16.99) H 02/15/23 02:52 Hct 52.9 % (37-53) 02/15/23 02:52 MCV 98.1 fl (82-101) 02/15/23 02:52 MCH 33.2 pg (27-33) H 02/15/23 02:52 MCHC 33.8 g/dL (30-55) 02/15/23 02:52 RDW 13.2 % (12.1-15.1) 02/15/23 02:52 Plt Count 154 10^3/cmm (157-399) L 02/15/23 02:52 MPV 10.3 fL (7.4-10.4) 02/15/23 02:52 Neut % (Auto) 71.8 % 02/15/23 02:52 Lymph % (Auto) 15.7 % 02/15/23 02:52 [place] % (Auto) 10.8 % 02/15/23 02:52 Eos % (Auto) 0.8 % 02/15/23 02:52 Baso % (Auto) 0.6 % 02/15/23 02:52 Neut # (Auto) 7.07 10^3/uL (1.8-7.7) 02/15/23 02:52 Lymph # (Auto) 1.5 10^3/uL (0.8-4.8) 02/15/23 02:52 [place] # (Auto) 1.1 10^3/uL (0.2-0.9) H 02/15/23 02:52 Eos # (Auto) 0.1 10^3/uL (0.0-0.8) 02/15/23 02:52 Baso # (Auto) 0.1 10^3/uL (0.0-0.1) 02/15/23 02:52 Nucleated RBC % (auto) 0 % 02/15/23 02:52 Nucleated RBCs # 0.0 /100WBC 02/15/23 02:52 Sodium 133 mmol/L (136-145) L 02/15/23 02:52 Potassium 4.6 mmol/L (3.5-5.1) 02/15/23 02:52 Chloride 96 mmol/L (98-107) L 02/15/23 02:52 Carbon Dioxide 26 mmol/L (22-29) 02/15/23 02:52 Anion Gap 15.6 (5-19) 02/15/23 02:52 BUN 32 mg/dL (8-23) H 02/15/23 02:52 Creatinine 1.0 mg/dL (0.7-1.2) 02/15/23 02:52 GFR Calculation Not Reportable 02/15/23 02:52 Glucose 112 mg/dL (65-115) 02/15/23 02:52 Calculated Osmolality 284 mOsm/kg (285-295) L 02/15/23 02:52 Calcium 9.2 mg/dL (8.5-10.5) 02/15/23 02:52 Magnesium 2.5 mg/dL (1.7-2.3) H 02/14/23 03:42 Total Bilirubin 1.2 mg/dL (0.15-1.2) 02/11/23 14:12 AST 19 U/L (0-40) 02/11/23 14:12 ALT 36 U/L (0-41) 02/11/23 14:12 Alkaline Phosphatase 85 U/L (40-130) 02/11/23 14:12 Troponin T Baseline 21 ng/L (0-15) H 02/11/23 14:12 Troponin T 120 Minute 19.74 ng/L (0-15) H 02/11/23 16:23 Delta Troponin T -1.26 ABS# (0-10) L 02/11/23 16:23 Troponin T Hi Sens 6Hr 20.40 ng/L (0-15) H 02/11/23 20:44 Troponin T Hi Sens 6Hr Delta -0.60 ng/L (0-12) L 02/11/23 20:44 NT-Pro-B Natriuret Pep 341 pg/mL (0-125) H 02/11/23 14:12 Total Protein 7.3 g/dL (6.6-8.7) 02/11/23 14:12 Albumin 5.0 g/dL (3.5-5.2) 02/11/23 14:12 Globulin 2.3 g/dL (1.3-4.6) 02/11/23 14:12 TSH 2.68 uIU/mL (0.27-4.20) 02/13/23 03:42 Vitals Last Vital Signs Temp 97.6 F 02/15/23 04:00 Pulse 67 02/15/23 10:18 Resp 26 H 02/15/23 10:18 BP 130/107 02/15/23 10:18 Pulse Ox 96 02/15/23 10:18 O2 Del Method Room Air 02/15/23 08:37 Discharge Plan Discharge Patient Disposition: Home Condition: Stable Prescriptions: New metoprolol tartrate 25 mg Tablet 25 mg PO BID@0900,2100 Qty: 180 0RF Continued albuterol sulfate [ProAir HFA] 90 mcg/actuation HFA aerosol inhaler 2 puff inhalation Q6H PRN (Reason: shortness of breath or wheezing) Qty: 8.5 0RF ropinirole 2 mg tablet 2 mg PO BID 90 Days Qty: 180 1RF tamsulosin 0.4 mg capsule 0.4 mg PO BEDTIME 90 Days Qty: 90 1RF atorvastatin 80 mg tablet 80 mg PO BEDTIME Qty: 90 3RF hydralazine 25 mg tablet 25 mg PO BID Qty: 180 3RF nitroglycerin 0.4 mg tablet, sublingual See Rx Instructions .ROUTE .COMPLEX Qty: 25 2RF Dose Instruction: DISSOLVE ONE TABLET UNDER THE TONGUE EVERY 5 MINUTES NEEDED FOR CHEST PAIN. DO NOT EXCEED A TOTAL OF 3 DOSES IN 15 MINUTES Rx Instructions: DISSOLVE ONE TABLET UNDER THE TONGUE EVERY 5 MINUTES NEEDED FOR CHEST PAIN. DO NOT EXCEED A TOTAL OF 3 DOSES IN 15 MINUTES aspirin 81 mg Tablet,Delayed Release (Dr/Ec) 81 mg PO QAM amlodipine 10 mg tablet 10 mg PO QAM levothyroxine 50 mcg tablet 50 mcg PO QPM telmisartan-hydrochlorothiazid 80-12.5 mg tablet 1 tab PO QAM Xarelto 20 mg tablet 20 mg PO DAILY tramadol 50 mg tablet 50 mg PO BID PRN (Reason: Pain) furosemide 20 mg tablet 40 mg PO BID Changed amiodarone 200 mg tablet 200 mg PO BID Qty: 30 0RF Discharge Orders: Discharge Order (Routine); Ordered 02/15/23 Ordered By: Duong Samuels Referrals: Harish Thompson M.D [Physician] - 02/26/23 10:30 am () Elizabeth Xiao MD [Primary Care Provider] - 02/20/23 11:00 am Discharge Diet: Cardiac Patient Instructions: Metoprolol (By mouth) (Lopressor, Toprol XL), Amiodarone (By mouth), Heart Failure (DC), A-fib (Atrial Fibrillation) (DC), Cardioversion (DC), CHF Stoplight, Opioid Safety Activity Restrictions/Additional Instructions: Continue with 200mg amiodarone. Monitor heart rate and blood pressures at home. Have your primary provider monitor for any amiodarone related injury to your eyes, thyroid, lungs or liver. Return to the hospital in case of any worsening or new concerning symptoms. Discharge Attestations Time Spent in Discharge Care*: greater than 30 min Status at Discharge: Cognitive status at discharge: cognitively intact, Behavioral status at discharge: cooperative, Quality Metrics Clinical Quality Measures [ No reported AMI, CVA or VTE this stay] Coding Level of Care Code 46107 Total time (in minutes) for Discharge: 35 Diagnoses Hyperlipidemia, unspecified hyperlipidemia type E78.5 Hyperlipidemia type: unspecified Coronary artery disease involving [place] coronary artery of [place] heart without angina pectoris I25.10 Primary hypertension I10 Hypertension type: primary hypertension Atrial fibrillation with RVR I48.91
--- NOTE | 2023-02-15 14:26 | PC.NURSE ---
Discharge Note Patient discharged to [home] via [w/c to POV] accompanied by [his ]. Discharge instructions reviewed with patient and/or computer help desk representative. Mobile pharmacy medications and/or prescriptions provided. Belongings/home medications returned.
== END 2023-02-15 13:35 | disposition home or self-care (01) ==
LOC: ER 15:47 → CSU 16:52
PROVIDERS: Admitting Provider Internal Medicine; Emergency Provider Physician Assistant; PCP Family Medicine; Visit Provider Internal Medicine
DX: I48.91 Unspecified atrial fibrillation (principal); E78.5 Hyperlipidemia, unspecified; I25.10 Atherosclerotic heart disease of native coronary artery without angina pectoris; I11.0 Hypertensive heart disease with heart failure; I50.42 Chronic combined systolic (congestive) and diastolic (congestive) heart failure; Z79.899 Other long term (current) drug therapy; E03.9 Hypothyroidism, unspecified; E83.110 Hereditary hemochromatosis; N40.1 Benign prostatic hyperplasia with lower urinary tract symptoms; R06.00 Dyspnea, unspecified; Z79.82 Long term (current) use of aspirin; Z79.01 Long term (current) use of anticoagulants; Z95.5 Presence of coronary angioplasty implant and graft; N13.8 Other obstructive and reflux uropathy; E66.9 Obesity, unspecified; Z68.36 Body mass index [BMI] 36.0-36.9, adult
CPT/HCPCS: 36415; 71045; 80048; 80053; 83735; 83880; 84443; 84484; 85025; 93005; 93312; 93320; 93325; 96374; 96375; 96376; 99285; C8929; G0378; J1160; J1940; J2704; J3490; Q9956

== ENCOUNTER → 2023-02-26 10:39 | Outpatient (BNVA) | payer MEDICARE, SELFPAY | PROVIDERS: PCP Family Medicine; Visit Provider Nurse Practitioner Family | DX: I48.91 Unspecified atrial fibrillation (principal); Z92.89 Personal history of other medical treatment | CPT/HCPCS: 93005; 99214 ==

== ENCOUNTER → 2023-03-07 08:49 | Outpatient (BNVA) | payer MEDICARE, SELFPAY | PROVIDERS: PCP Family Medicine; Visit Provider Family Medicine | DX: M25.512 Pain in left shoulder (principal); M19.011 Primary osteoarthritis, right shoulder | CPT/HCPCS: 73030 ==

== ENCOUNTER → 2023-03-11 10:38 | Outpatient (BNVA) | payer MEDICARE, SELFPAY | PROVIDERS: PCP Family Medicine; Visit Provider Family Medicine | DX: I10 Essential (primary) hypertension (principal); I48.91 Unspecified atrial fibrillation; I50.42 Chronic combined systolic (congestive) and diastolic (congestive) heart failure; E83.110 Hereditary hemochromatosis | CPT/HCPCS: 80048; 83540; 85025 ==

== ENCOUNTER 2023-03-27 07:52 | Outpatient (CLI) | payer MEDICARE, SELFPAY ==
--- NOTE | 2023-03-27 | ECG_ITS ---
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 Interpretive Statements NAME OF STUDY: LEXISCAN SESTAMIBI STRESS TEST INDICATION: [Chest Pain, Afib RVR, ] Procedure: At the baseline, the blood pressure was 114/70 mmHg with a heart rate of 66 bpm. The electrocardiogram showed normal sinus rhythm, normal axis with normal ST and T's. The Lexiscan was infused over a period of 20 seconds. A total of 0.4 mg of Lexiscan was infused. The stress phase was continued for a total of 5 minutes. Heart rate was at the end of stress phase was 75 bpm and a blood pressure of 135/63 mmHg. The EKG at the peak infusion revealed normal sinus rhythm with no significant ST-T wave changes. Occasional PVCs Sestamibi was injected 20 seconds after the Lexiscan infusion. Blood pressure at the end of recovery phase was 142/63 mmHg with a heart rate of 68 bpm. Conclusion: 1. Normal EKG response to Lexiscan infusion 2. No Lexiscan induced chest pain or cardiac arrhythmia. 3. Normal blood pressure and heart rate response. 4. Sestamibi/sestamibi perfusion scan pending; see separate report. Electronically Signed On 04-11-2023 11:49:08 [employer] by Harish Thompson M.D. [email or web address]
[2023-03-27 08:12] VITALS: BMI 36.4
--- NOTE | 2023-03-27 08:13 | NMCV_ITS ---
NM raymundo perf SPECT r/s* [id number] Lavon Boone Age: 72 Gender: M : 1950 Exam Date: 03/27/2023 08:13 Ordering Phys: Khloe Ospina Technologist: PREAM Barker Exam Location: [facility] Indications: ATRIAL FIBRILLATION STRESS TEST Please see separate stress test report in [facility] for full findings IMAGE PROTOCOL Rest/Stress 1 Lexiscan Day Radiopharmaceutical Dose (mCi) Administration Site Administered by Rest: Tc-99m 10.7 IV PREMA Jett Sestamibi Stress:Tc-99m 33.0 IV PREMA Jtet Sestamibi Rest: 27-Mar-2023 60 Discovery 630 Stress: 27-Mar-2023 30 Discovery 630 0.4mg Lexiscan. Supine position only as patient was unable to lay prone. SPECT RESULTS Technical Quality: Excellent Raw Data Analysis: Normal Image Corrections: No attenuation or motion correction applied Summed Stress Score: 0 Summed Rest Score: 2 Summed Difference Score: 0 PERFUSION FINDINGS There is a small sized, mostly fixed perfusion defect seen in apical lateral. This is consistent with small area of prior infarct with minimal hitesh-infarct ischemia in left circumflex artery territory. FUNCTIONAL RESULTS (calculated via Gated SPECT) Stress Image LV EF (%): 64 Stress EDV (mL):137 TID: 0.89 Stress ESV (mL):49 FUNCTIONAL FINDINGS: There is normal left ventricular systolic function. IMPRESSIONS 1. Small area of prior infarct with minimal hitesh-infarct ischemia 2. LV systolic function is normal Harish Thompson MD (Electronically Signed) Final Date: 27 March 2023 10:44 S
[2023-03-27] MEDS: regadenoson 0.4 Mg/5 ml Syringe IVP (09:30)
[2023-03-27 09:42] VITALS: BP 142/63; PULSE 75
== END 2023-03-27 07:53 | disposition home or self-care (01) ==
PROVIDERS: PCP Family Medicine; Visit Provider Nurse Practitioner Family
DX: I48.91 Unspecified atrial fibrillation (principal); I25.2 Old myocardial infarction
CPT/HCPCS: 36415; 78452; 93017; 96374; A9500; J2785

== ENCOUNTER → 2023-04-14 09:50 | Outpatient (BNVA) | payer MEDICARE, SELFPAY | PROVIDERS: PCP Family Medicine; Visit Provider Nurse Practitioner Family | DX: M25.511 Pain in right shoulder (principal) | CPT/HCPCS: 73030 ==

== ENCOUNTER → 2023-06-13 08:57 | Outpatient (BNVA) | payer MEDICARE, SELFPAY | PROVIDERS: PCP Family Medicine; Visit Provider Nurse Practitioner Family | DX: I48.0 Paroxysmal atrial fibrillation (principal); I11.0 Hypertensive heart disease with heart failure; I50.42 Chronic combined systolic (congestive) and diastolic (congestive) heart failure; I25.10 Atherosclerotic heart disease of native coronary artery without angina pectoris | CPT/HCPCS: 99214 ==

== ENCOUNTER → 2023-06-16 09:48 | Outpatient (BNVA) | payer MEDICARE, SELFPAY | PROVIDERS: PCP Family Medicine; Referring Provider Family Medicine; Visit Provider Family Medicine | DX: I50.42 Chronic combined systolic (congestive) and diastolic (congestive) heart failure (principal) | CPT/HCPCS: 80048 ==

== ENCOUNTER → 2023-10-08 14:52 | Outpatient (BNVA) | payer MEDICARE, SELFPAY | PROVIDERS: PCP Family Medicine; Visit Provider Internal Medicine | DX: I11.0 Hypertensive heart disease with heart failure (principal); I50.42 Chronic combined systolic (congestive) and diastolic (congestive) heart failure; I48.91 Unspecified atrial fibrillation; I25.10 Atherosclerotic heart disease of native coronary artery without angina pectoris; E78.5 Hyperlipidemia, unspecified | CPT/HCPCS: 99214 ==

== ENCOUNTER → 2023-11-04 09:56 | Outpatient (BNVA) | payer MEDICARE, SELFPAY | PROVIDERS: PCP Family Medicine; Visit Provider Family Medicine | DX: I50.42 Chronic combined systolic (congestive) and diastolic (congestive) heart failure (principal); I10 Essential (primary) hypertension; E03.9 Hypothyroidism, unspecified | CPT/HCPCS: 80053; 80061; 83735; 84443 ==

== ENCOUNTER → 2024-01-27 11:30 | Outpatient (BNVA) | payer MEDICARE, SELFPAY | PROVIDERS: PCP Family Medicine; Visit Provider Family Medicine | DX: E03.9 Hypothyroidism, unspecified (principal); I50.42 Chronic combined systolic (congestive) and diastolic (congestive) heart failure; I48.0 Paroxysmal atrial fibrillation | CPT/HCPCS: 80048; 84439; 84443; 84481; 85025 ==

== ENCOUNTER 2024-03-29 11:26 | Outpatient (CLI) | payer MEDICARE, SELFPAY | END 2024-03-29 11:27 | disposition home or self-care (01) | LOC: SLEEP 11:28 | PROVIDERS: PCP Family Medicine; Visit Provider Family Medicine | DX: G47.33 Obstructive sleep apnea (adult) (pediatric) (principal) | CPT/HCPCS: G0399 ==

== ENCOUNTER → 2024-04-15 12:23 | Outpatient (BNVA) | payer MEDICARE, SELFPAY | PROVIDERS: PCP Family Medicine; Visit Provider Internal Medicine | DX: I11.0 Hypertensive heart disease with heart failure (principal); I50.42 Chronic combined systolic (congestive) and diastolic (congestive) heart failure; I48.91 Unspecified atrial fibrillation; I25.10 Atherosclerotic heart disease of native coronary artery without angina pectoris; E78.5 Hyperlipidemia, unspecified; Z79.01 Long term (current) use of anticoagulants | CPT/HCPCS: 99214 ==

== ENCOUNTER 2024-04-30 06:33 | Emergency (ER) | payer MEDICARE, SELFPAY ==
[2024-04-30 06:33] VITALS: BP 99/71; PULSE 75; RESP 16; TEMP 36.5; O2SAT 89; BMI 36.6
--- NOTE | 2024-04-30 06:40 | CTR_ITS ---
PROCEDURE INFORMATION: Exam: CT Cervical Spine Without Contrast Exam date and time: 04/30/2024 6:55 AM Age: 73 years old Clinical indication: Injury or trauma; Additional info: Fall, neck pain TECHNIQUE: Imaging protocol: Computed tomography of the cervical spine without contrast. Radiation optimization: All CT scans at this facility use at least one of these dose optimization techniques: automated exposure control; mA and/or kV adjustment per patient size (includes targeted exams where dose is matched to clinical indication); or iterative reconstruction. COMPARISON: CR (CHEST, ) 02/11/2023 1:46 PM RADIATION DOSE METRICS: Total DLP (mGy-cm): 461 FINDINGS: Tubes, catheters and devices: Patient has a left-sided pacemaker Bones: Patient appears to have mild cervicothoracic scoliosis. There are degenerative changes involving C1-C2 anteriorly. At C2-C3, there is no significant central or significant foraminal stenosis. At C3-C4, there is no significant central or significant foraminal stenosis. At C4-C5, the disc is degenerated. There is mild disc bulge and spondylosis without significant central or significant foraminal stenosis. At C5-C6, the disc is degenerated. There is disc bulge and spondylosis asymmetrically greater posteriorly on the right. There is mild central canal stenosis. There is llik-xo-fxyrtmac right. There is mild left foraminal stenosis. At C6-C7, the disc is degenerated.. There is disc bulge and spondylosis without significant central canal stenosis. There is moderate right and mild left foraminal stenosis. At C7-T1,. There is no significant central or significant foraminal stenosis Lungs: There is atelectasis in the included portions of the lung apices. Thyroid: The thyroid gland is unremarkable. Vasculature: There are atherosclerotic changes in the carotid systems in the neck. Soft tissues: Unremarkable. CT/CT cervical spin wo con* [id number] IMPRESSION: 1. Negative for fracture or subluxation 2. Degenerative disc disease and spondylosis. Facet degenerative change. 3. Negative for significant central canal stenosis. Bilateral foraminal stenosis as outlined above.
--- NOTE | 2024-04-30 06:40 | CTR_ITS ---
PROCEDURE INFORMATION: Exam: CT Head Without Contrast Exam date and time: 04/30/2024 6:55 AM Age: 73 years old Clinical indication: Injury or trauma; Fall; Additional info: Fall, head injury TECHNIQUE: Imaging protocol: Computed tomography of the head without contrast. Radiation optimization: All CT scans at this facility use at least one of these dose optimization techniques: automated exposure control; mA and/or kV adjustment per patient size (includes targeted exams where dose is matched to clinical indication); or iterative reconstruction. COMPARISON: CT facial bones wo con* [id number] 04/30/2024 6:55 AM RADIATION DOSE METRICS: Total DLP (mGy-cm): 1233.1 FINDINGS: Brain: There is basal ganglia calcification. No acute infarction or hemorrhage is detected. Zavala-white junction is maintained. Cerebral ventricles: No ventriculomegaly. Paranasal sinuses: There is mild mucosal thickening in the right side of the sphenoid sinus and in the right ethmoid sinus. Included portions other paranasal sinuses are clear. Mastoid air cells: The mastoid air cells are clear Bones: No acute skull fracture is detected.. Soft tissues: Unremarkable. Other findings: There is mild diffuse atrophy CT/CT head wo con* [id number] IMPRESSION: Negative for acute intracranial findings
--- NOTE | 2024-04-30 06:40 | W.ED.FALL ---
Documented by User: Corinna Carlos MD 04/30/24 10:31 HPI - Fall General: Chief Complaint: Fall Stated Complaint: FALL, HEAD INJURY Time Seen by Provider: 04/30/24 06:36 History of Present Illness: This is a 73-year-old man with a history of atrial fibrillation and chronic anticoagulation on Xarelto, congestive heart failure, BPH, hemochromatosis, hypertension and coronary artery disease who presents to the emergency room after a fall with a head injury this morning. He states he became lightheaded as he was walking out the door. He was going to work. He thinks he may have lost consciousness briefly. He has a superficial laceration to his nasal bridge and to his right eyebrow. No other pain at this time. No chest pain. No shortness of breath. No cough. He is complaining of some mild neck stiffness with no focal vertebral tenderness. Related Data Home Medications ?Medication ?Instructions ?Recorded ?Confirmed aspirin 81 mg tablet,delayed 81 mg PO QAM 02/06/23 04/30/24 release amlodipine 10 mg tablet 10 mg PO DAILY 04/30/24 04/30/24 levothyroxine 75 mcg tablet 75 mcg PO DAILY 04/30/24 04/30/24 metoprolol tartrate 25 mg tablet 25 mg PO BID 04/30/24 04/30/24 rivaroxaban 20 mg tablet (Xarelto) 20 mg PO DAILY 04/30/24 04/30/24 tamsulosin 0.4 mg capsule 0.4 mg PO QPM 04/30/24 04/30/24 telmisartan 80 1 tab PO DAILY 04/30/24 04/30/24 mg-hydrochlorothiazide 12.5 mg tablet Previous Rx's ?Medication ?Instructions ?Recorded albuterol sulfate 90 mcg/actuation 2 puff inhalation Q6H PRN 01/24/22 aerosol inhaler (ProAir HFA) shortness of breath or wheezing #8.5 grams nitroglycerin 0.4 mg sublingual See Rx Instructions .Route 07/23/23 tablet .COMPLEX #25 tabs atorvastatin 80 mg tablet 80 mg PO BEDTIME #90 tabs 11/04/23 furosemide 40 mg tablet 40 mg PO BID 90 days #180 tabs 11/04/23 ropinirole 2 mg tablet 2 mg PO BID 90 days #180 tabs 11/04/23 amiodarone 200 mg tablet 200 mg PO BID #120 tabs 12/08/23 hydralazine 25 mg tablet 25 mg PO BID #180 tabs 12/16/23 tramadol 50 mg tablet 50 mg PO BID PRN pain 30 days #60 01/27/24 tabs Allergies Allergy/AdvReac Type Severity Reaction Status Date / Time hydrocodone Allergy ADR-Abdominal Verified 04/15/24 12:42 Pain meperidine (From Demerol) Allergy Unknown Verified 04/15/24 12:42 [facility] ED PFSH: Medical History CHF (congestive heart failure), NYHA class III Unstable angina BPH loc w urin obs/LUTS Lower urinary tract symptoms (LUTS) Spinal osteoarthritis Acute thoracic back pain Restless leg syndrome Chronic arthritis Allergic rhinitis Hereditary hemochromatosis Hypertension Restless legs syndrome (RLS) CAD (coronary artery disease) Hyperlipidemia Surgical History Hx of cardiac catheterization History of coronary artery stent placement Hx of hernia repair Hx of colonoscopy Family History Mother , at age 94 Cancer Breast cancer Father , at age 88 Prostate cancer Social History Smoking and tobacco/nicotine status: never used tobacco/nicotine Alcohol intake: never Household members: spouse Marital status: Current occupational status: employed Physical Exam Narrative: EXAM NARRATIVE: General: Alert, no acute distress. Skin: Warm, dry. Skin tears to left hand Head: Normocephalic, superficial lack to the nasal bridge and laceration over the right eyebrow.. Neck: Supple, trachea midline. Eye: Extraocular movements are intact. Ears, nose, mouth and throat: mucosa moist. Cardiovascular: Regular, Normal peripheral perfusion. Respiratory: Lungs are clear to auscultation, respirations are non-labored, breath sounds are equal, Symmetrical chest wall expansion. Gastrointestinal: Soft, Nontender, Non distended Musculoskeletal: Normal ROM, no deformity. Abrasions and swelling to right knee Neurological: Alert and oriented, No focal neurological deficit observed. Psychiatric: Cooperative, appropriate mood & affect. Course Vital Signs: Vital signs: Vital Signs Temperature 97.7 F 04/30/24 06:33 Pulse Rate 75 04/30/24 08:39 Respiratory Rate 16 04/30/24 06:33 Blood Pressure 81/61 04/30/24 08:39 Pulse Oximetry 97 04/30/24 08:39 Oxygen Delivery Me thod Room Air 04/30/24 08:39 MDM - Fall Medical Decision Making Medical decision making: Differential diagnosis including but not limited to and based on the above HPI, review of systems and physical exam: patient with fall and head injury with neck pain. Subdural hematoma, subarachnoid hemorrhage, concussion, skull fracture. Also concern for cervical fracture versus cervical strain. Orders placed to evaluate differential diagnosis based on the above differential, HPI and physical exam CT scan of the head and neck were ordered. EKG: Time 6:50 AM. Rate 71. Atrial fibrillation with controlled rate, No ST-T changes, no ectopy, This was reviewed and interpreted by myself the ER physician at 6:[address] head: No acute intracranial process. no intracranial hemorrhage, no evidence of infarct. no evidence of acute fracture.This was reviewed and interpreted by myself the ER physician. CT of the cervical spine: No fracture. Good alignment. No step-offs. This was reviewed and interpreted by myself the emergency room physician. I also reviewed the radiologist report. Facial CT: Soft tissue swelling scalp orbital lids and nose. Normal orbital bones. Minimally depressed right nasal bone fracture that could be old or new. This was reviewed and interpreted by myself the emergency room physician. I also reviewed the radiology report. Chest x-ray: Pacemaker in place. No acute process. No infiltrate. No pneumothorax. This was reviewed and interpreted by myself the emergency room physician. I also reviewed the radiology report. Lab work: Reviewed and interpreted lab work personally. No leukocytosis. No anemia. BUN/creatinine are elevated at 45 and 2.1. He does have some chronic kidney disease but his baseline has been between 1.1 and 1.5 over the past year. Judy VASQUEZ closed the wound on the right eyebrow. Reexamination: Laceration closed. Patient was able to ambulate on his right knee it is swollen. He says he does not want an x-ray of that. He is on extensive hypertensive medications/diuretics. He is on hydrochlorothiazide and Lasix. I will have him hold those. He has an appointment next Friday with his doctor Assessment and plan: Fall Facial contusion Nasal fracture Facial laceration Dehydration Acute on chronic renal insufficiency ?Normal saline bolus. Life-saving tetanus was given - Discharged home - Discussed plan with patient. Answered any questions. - Evaluation and treatment of this problem were appropriate in the emergency setting. Lab Data 04/30/24 06:46 04/30/24 06:46 Radiology Impressions Cervical Spine CT 04/30/24 06:40 IMPRESSION: 1. Negative for fracture or subluxation 2. Degenerative disc disease and spondylosis. Facet degenerative change. 3. Negative for significant central canal stenosis. Bilateral foraminal stenosis as outlined above. Head CT 04/30/24 06:40 IMPRESSION: Negative for acute intracranial findings Face CT 04/30/24 06:44 IMPRESSION: 1. Soft tissue swelling involving the inferior right frontal scalp extending into the right orbital lids and into the nose. Abnormal soft tissue air and soft tissue disruption in the superomedial right side of the nose is thought to be consistent with a laceration 2. Orbits and contents are intact 3. Minimally depressed right nasal bone fracture which could be acute or chronic 4. No other facial fractures detected Chest X-Ray 04/30/24 06:50 Impression: Atherosclerosis. Laboratory Results WBC 7.93 10^3/uL (3.29-11.43) 04/30/24 06:46 RBC 4.62 10^6/uL (3.85-5.65) 04/30/24 06:46 Hgb 15.20 g/dL (11.27-16.99) 04/30/24 06:46 Hct 44.0 % (37-53) 04/30/24 06:46 MCV 95.2 fl (82-101) 04/30/24 06:46 MCH 32.9 pg (27-33) 04/30/24 06:46 MCHC 34.5 g/dL (30-55) 04/30/24 06:46 RDW 12.9 % (12.1-15.1) 04/30/24 06:46 Plt Count 140 10^3/cmm (157-399) L 04/30/24 06:46 MPV 10.1 fL (7.4-10.4) 04/30/24 06:46 Neut % (Auto) 64.9 % 04/30/24 06:46 Lymph % (Auto) 17.3 % 04/30/24 06:46 [place] % (Auto) 13.2 % 04/30/24 06:46 Eos % (Auto) 3.4 % 04/30/24 06:46 Baso % (Auto) 0.8 % 04/30/24 06:46 Neut # (Auto) 5.15 10^3/uL (1.8-7.7) 04/30/24 06:46 Lymph # (Auto) 1.4 10^3/uL (0.8-4.8) 04/30/24 06:46 [place] # (Auto) 1.1 10^3/uL (0.2-0.9) H 04/30/24 06:46 Eos # (Auto) 0.3 10^3/uL (0.0-0.8) 04/30/24 06:46 Baso # (Auto) 0.1 10^3/uL (0.0-0.1) 04/30/24 06:46 Nucleated RBC % (auto) 0 % 04/30/24 06:46 Nucleated RBCs # 0.0 /100WBC 04/30/24 06:46 Sodium 137 mmol/L (136-145) 04/30/24 06:46 Potassium 3.4 mmol/L (3.5-5.1) L 04/30/24 06:46 Chloride 101 mmol/L (98-107) 04/30/24 06:46 Carbon Dioxide 23 mmol/L (22-29) 04/30/24 06:46 Anion Gap 16.4 (5-19) 04/30/24 06:46 BUN 45 mg/dL (8-23) H 04/30/24 06:46 Creatinine 2.1 mg/dL (0.7-1.2) H 04/30/24 06:46 GFR Calculation Not Reportable 04/30/24 06:46 Glucose 148 mg/dL (65-115) H 04/30/24 06:46 Calculated Osmolality 298 mOsm/kg (285-295) H 04/30/24 06:46 Lactic Acid 1.9 mmol/L (0.5-2.2) 04/30/24 06:46 Calcium 8.5 mg/dL (8.5-10.5) 04/30/24 06:46 Total Bilirubin 1.2 mg/dL (0.15-1.2) 04/30/24 06:46 AST 24 U/L (0-40) 04/30/24 06:46 ALT 30 U/L (0-41) 04/30/24 06:46 Alkaline Phosphatase 84 U/L (40-130) 04/30/24 06:46 Troponin T Baseline 31 ng/L (0-15) H 04/30/24 06:46 Troponin T 120 Minute 28.95 ng/L (0-15) H 04/30/24 08:42 Delta Troponin T -2.05 ABS# (0-10) L 04/30/24 08:42 NT-Pro-B Natriuret Pep 313 pg/mL (0-125) H 04/30/24 06:46 Total Protein 6.3 g/dL (6.6-8.7) L 04/30/24 06:46 Albumin 3.9 g/dL (3.5-5.2) 04/30/24 06:46 Globulin 2.4 g/dL (1.3-4.6) 04/30/24 06:46 Urine Color Yellow (Yellow) 04/30/24 09:09 Urine Appearance Clear (CLEAR) 04/30/24 09:09 Urine pH 5.5 (5-7) 04/30/24 09:09 Ur Specific [place] 1.013 (1.005-1.030) 04/30/24 09:09 Urine Protein Negative (Negative) 04/30/24 09:09 Urine Glucose (UA) Negative (Normal) 04/30/24 09:09 Urine Ketones Negative (Negative) 04/30/24 09:09 Urine Blood Negative (Negative) 04/30/24 09:09 Urine Nitrate Negative (Negative) 04/30/24 09:09 Urine Bilirubin Negative (Negative) 04/30/24 09:09 Urine Urobilinogen 1.0 mg/dL (Negative) 04/30/24 09:09 Ur Leukocyte Esterase Negative (Negative) 04/30/24 09:09 Amorphous Sediment Not Reportable 04/30/24 09:09 Influenza A (PCR) Negative (Negative) 04/30/24 06:46 Influenza Type B (PCR) Negative (Negative) 04/30/24 06:46 RSV (PCR) Negative (Negative) 04/30/24 06:46 SARS-CoV-2 (PCR) Negative (Negative) 04/30/24 06:46 All radiology interpretation(s) finalized by discharge Discharge Plan Discharge Patient Disposition: Home Clinical Impression: Fall, Head injury, Laceration of nose, Nasal fracture, Near syncope, Acute on chronic renal insufficiency, Dehydration Condition: Stable Prescriptions: No Action albuterol sulfate [ProAir HFA] 90 mcg/actuation HFA aerosol inhaler 2 puff inhalation Q6H PRN (Reason: shortness of breath or wheezing) Qty: 8.5 0RF nitroglycerin 0.4 mg tablet, sublingual See Rx Instructions .ROUTE .COMPLEX Qty: 25 2RF Dose Instruction: DISSOLVE ONE TABLET UNDER THE TONGUE EVERY 5 MINUTES NEEDED FOR CHEST PAIN. DO NOT EXCEED A TOTAL OF 3 DOSES IN 15 MINUTES Rx Instructions: DISSOLVE ONE TABLET UNDER THE TONGUE EVERY 5 MINUTES NEEDED FOR CHEST PAIN. DO NOT EXCEED A TOTAL OF 3 DOSES IN 15 MINUTES atorvastatin 80 mg tablet 80 mg PO BEDTIME Qty: 90 3RF furosemide 40 mg tablet 40 mg PO BID 90 Days Qty: 180 2RF ropinirole 2 mg tablet 2 mg PO BID 90 Days Qty: 180 2RF tramadol 50 mg tablet 50 mg PO BID PRN (Reason: pain) 30 Days Qty: 60 0RF amiodarone 200 mg tablet 200 mg PO BID Qty: 120 3RF hydralazine 25 mg tablet 25 mg PO BID Qty: 180 3RF aspirin 81 mg Tablet,Delayed Release (Dr/Ec) 81 mg PO QAM levothyroxine 75 mcg tablet 75 mcg PO DAILY Rx Instructions: TAKE 1 TABLET BY MOUTH ONCE DAILY tamsulosin 0.4 mg capsule 0.4 mg PO QPM Rx Instructions: TAKE 1 CAPSULE BY MOUTH ONCE DAILY AT BEDTIME amlodipine 10 mg tablet 10 mg PO DAILY Rx Instructions: TAKE 1 TABLET BY MOUTH ONCE DAILY telmisartan-hydrochlorothiazid 80-12.5 mg tablet 1 tab PO DAILY Rx Instructions: TAKE 1 TABLET BY MOUTH ONCE DAILY metoprolol tartrate 25 mg tablet 25 mg PO BID Xarelto 20 mg tablet 20 mg PO DAILY Rx Instructions: TAKE 1 TABLET BY MOUTH ONCE DAILY Discharge Orders: Discharge ED (Routine); Ordered 04/30/24 Ordered By: Corinna Carlos Referrals: Naman Momin MD [Physician] - 4-7 days (Please call for an appointment concerning your broken nose.) Elizabeth Xiao MD [Primary Care Provider] - Discharge Diet: As Directed Discharge Activity: Increase activity as tolerated Patient Instructions: Facial Laceration (ED), Opioid Safety, Pain Management Activity Restrictions/Additional Instructions: Hold your furosemide and telmisartan hydrochlorothiazide for the next few days. Do not miss your appointment with your doctor on Friday. If you develop worsening swelling in your legs then resume the Lasix. Keep the area clean and dry, wash twice per day with antibacterial soap and water. Return to your primary provider or the emergency room in 7 days for suture removal. Avoid any prolonged submersion in water. Avoid all [place] water, pond water, streams or other untreated water. Thank you for choosing [facility] for your healthcare needs today. Please realize this is an emergency room and that we are providing you with a medical screening exam and this may not be complete and all inclusive of all the testing and or work up that you may need to determine your ailment or severity of your illness. You have been screened and evaluated and felt safe for discharge. Health conditions do change or evolve sometimes and as such it is important that you follow up with your Primary Doctor to be re checked, 3-5 days is a general good time frame for follow up. You are always welcome to return to the ED for re assessment if your symptoms are worsening or you have new concerns Print Language: Andorran Coding Level of Care Code ED Functional Director for Chg Fwd Documented by User: GUILLAUME Crawley 04/30/24 09:24 HPI - Fall General: Chief Complaint: Fall Stated Complaint: FALL, HEAD INJURY Time Seen by Provider: 04/30/24 06:36 Related Data Home Medications ?Medication ?Instructions ?Recorded ?Confirmed aspirin 81 mg tablet,delayed 81 mg PO QAM 02/06/23 04/30/24 release amlodipine 10 mg tablet 10 mg PO DAILY 04/30/24 04/30/24 levothyroxine 75 mcg tablet 75 mcg PO DAILY 04/30/24 04/30/24 metoprolol tartrate 25 mg tablet 25 mg PO BID 04/30/24 04/30/24 rivaroxaban 20 mg tablet (Xarelto) 20 mg PO DAILY 04/30/24 04/30/24 tamsulosin 0.4 mg capsule 0.4 mg PO QPM 04/30/24 04/30/24 telmisartan 80 1 tab PO DAILY 04/30/24 04/30/24 mg-hydrochlorothiazide 12.5 mg tablet Previous Rx's ?Medication ?Instructions ?Recorded albuterol sulfate 90 mcg/actuation 2 puff inhalation Q6H PRN 01/24/22 aerosol inhaler (ProAir HFA) shortness of breath or wheezing #8.5 grams nitroglycerin 0.4 mg sublingual See Rx Instructions .Route 07/23/23 tablet .COMPLEX #25 tabs atorvastatin 80 mg tablet 80 mg PO BEDTIME #90 tabs 11/04/23 furosemide 40 mg tablet 40 mg PO BID 90 days #180 tabs 11/04/23 ropinirole 2 mg tablet 2 mg PO BID 90 days #180 tabs 11/04/23 amiodarone 200 mg tablet 200 mg PO BID #120 tabs 12/08/23 hydralazine 25 mg tablet 25 mg PO BID #180 tabs 12/16/23 tramadol 50 mg tablet 50 mg PO BID PRN pain 30 days #60 01/27/24 tabs Allergies Allergy/AdvReac Type Severity Reaction Status Date / Time hydrocodone Allergy ADR-Abdominal Verified 04/15/24 12:42 Pain meperidine (From Demerol) Allergy Unknown Verified 04/15/24 12:42 [facility] ED PFS: Medical History CHF (congestive heart failure), NYHA class III Unstable angina BPH loc w urin obs/LUTS Lower urinary tract symptoms (LUTS) Spinal osteoarthritis Acute thoracic back pain Restless leg syndrome Chronic arthritis Allergic rhinitis Hereditary hemochromatosis Hypertension Restless legs syndrome (RLS) CAD (coronary artery disease) Hyperlipidemia Surgical History Hx of cardiac catheterization History of coronary artery stent placement Hx of hernia repair Hx of colonoscopy Family History Mother , at age 94 Cancer Breast cancer Father , at age 88 Prostate cancer Social History Smoking and tobacco/nicotine status: never used tobacco/nicotine Alcohol intake: never Household members: spouse Marital status: Current occupational status: employed Procedures Laceration Laceration 1: Site: face (R eyebrow) Side (If applicable): right Size (cm): 1.5 Description: linear Depth: simple, single layer Local Anesthetic: lidocaine 2% and with epi Amount of anesthesia used (mL): 2.0 Pre-repair: wound explored and irrigated extensively Skin layer closed with: nylon Size (cm): 4-0 Number of sutures: 3 Technique: simple, interrupted Course ED course: I was consulted by Dr. Carlos to repair patient's right eyebrow laceration. Wound was copiously irrigated and repaired as documented. Other than laceration repair, I did not actively participate in any portion of patient's care. ES Vital Signs: Vital signs: Vital Signs Temperature 97.7 F 04/30/24 06:33 Pulse Rate 75 04/30/24 08:39 Respiratory Rate 16 04/30/24 06:33 Blood Pressure 81/61 04/30/24 08:39 Pulse Oximetry 97 04/30/24 08:39 Oxygen Delivery Me thod Room Air 04/30/24 08:39 MDM - Fall Lab Data 04/30/24 06:46 04/30/24 06:46 Radiology Impressions Cervical Spine CT 04/30/24 06:40 IMPRESSION: 1. Negative for fracture or subluxation 2. Degenerative disc disease and spondylosis. Facet degenerative change. 3. Negative for significant central canal stenosis. Bilateral foraminal stenosis as outlined above. Head CT 04/30/24 06:40 IMPRESSION: Negative for acute intracranial findings Face CT 04/30/24 06:44 IMPRESSION: 1. Soft tissue swelling involving the inferior right frontal scalp extending into the right orbital lids and into the nose. Abnormal soft tissue air and soft tissue disruption in the superomedial right side of the nose is thought to be consistent with a laceration 2. Orbits and contents are intact 3. Minimally depressed right nasal bone fracture which could be acute or chronic 4. No other facial fractures detected Chest X-Ray 04/30/24 06:50 Impression: Atherosclerosis. Laboratory Results WBC 7.93 10^3/uL (3.29-11.43) 04/30/24 06:46 RBC 4.62 10^6/uL (3.85-5.65) 04/30/24 06:46 Hgb 15.20 g/dL (11.27-16.99) 04/30/24 06:46 Hct 44.0 % (37-53) 04/30/24 06:46 MCV 95.2 fl (82-101) 04/30/24 06:46 MCH 32.9 pg (27-33) 04/30/24 06:46 MCHC 34.5 g/dL (30-55) 04/30/24 06:46 RDW 12.9 % (12.1-15.1) 04/30/24 06:46 Plt Count 140 10^3/cmm (157-399) L 04/30/24 06:46 MPV 10.1 fL (7.4-10.4) 04/30/24 06:46 Neut % (Auto) 64.9 % 04/30/24 06:46 Lymph % (Auto) 17.3 % 04/30/24 06:46 [place] % (Auto) 13.2 % 04/30/24 06:46 Eos % (Auto) 3.4 % 04/30/24 06:46 Baso % (Auto) 0.8 % 04/30/24 06:46 Neut # (Auto) 5.15 10^3/uL (1.8-7.7) 04/30/24 06:46 Lymph # (Auto) 1.4 10^3/uL (0.8-4.8) 04/30/24 06:46 [place] # (Auto) 1.1 10^3/uL (0.2-0.9) H 04/30/24 06:46 Eos # (Auto) 0.3 10^3/uL (0.0-0.8) 04/30/24 06:46 Baso # (Auto) 0.1 10^3/uL (0.0-0.1) 04/30/24 06:46 Nucleated RBC % (auto) 0 % 04/30/24 06:46 Nucleated RBCs # 0.0 /100WBC 04/30/24 06:46 Sodium 137 mmol/L (136-145) 04/30/24 06:46 Potassium 3.4 mmol/L (3.5-5.1) L 04/30/24 06:46 Chloride 101 mmol/L (98-107) 04/30/24 06:46 Carbon Dioxide 23 mmol/L (22-29) 04/30/24 06:46 Anion Gap 16.4 (5-19) 04/30/24 06:46 BUN 45 mg/dL (8-23) H 04/30/24 06:46 Creatinine 2.1 mg/dL (0.7-1.2) H 04/30/24 06:46 GFR Calculation Not Reportable 04/30/24 06:46 Glucose 148 mg/dL (65-115) H 04/30/24 06:46 Calculated Osmolality 298 mOsm/kg (285-295) H 04/30/24 06:46 Lactic Acid 1.9 mmol/L (0.5-2.2) 04/30/24 06:46 Calcium 8.5 mg/dL (8.5-10.5) 04/30/24 06:46 Total Bilirubin 1.2 mg/dL (0.15-1.2) 04/30/24 06:46 AST 24 U/L (0-40) 04/30/24 06:46 ALT 30 U/L (0-41) 04/30/24 06:46 Alkaline Phosphatase 84 U/L (40-130) 04/30/24 06:46 Troponin T Baseline 31 ng/L (0-15) H 04/30/24 06:46 Troponin T 120 Minute 28.95 ng/L (0-15) H 04/30/24 08:42 Delta Troponin T -2.05 ABS# (0-10) L 04/30/24 08:42 NT-Pro-B Natriuret Pep 313 pg/mL (0-125) H 04/30/24 06:46 Total Protein 6.3 g/dL (6.6-8.7) L 04/30/24 06:46 Albumin 3.9 g/dL (3.5-5.2) 04/30/24 06:46 Globulin 2.4 g/dL (1.3-4.6) 04/30/24 06:46 Urine Color Yellow (Yellow) 04/30/24 09:09 Urine Appearance Clear (CLEAR) 04/30/24 09:09 Urine pH 5.5 (5-7) 04/30/24 09:09 Ur Specific [place] 1.013 (1.005-1.030) 04/30/24 09:09 Urine Protein Negative (Negative) 04/30/24 09:09 Urine Glucose (UA) Negative (Normal) 04/30/24 09:09 Urine Ketones Negative (Negative) 04/30/24 09:09 Urine Blood Negative (Negative) 04/30/24 09:09 Urine Nitrate Negative (Negative) 04/30/24 09:09 Urine Bilirubin Negative (Negative) 04/30/24 09:09 Urine Urobilinogen 1.0 mg/dL (Negative) 04/30/24 09:09 Ur Leukocyte Esterase Negative (Negative) 04/30/24 09:09 Amorphous Sediment Not Reportable 04/30/24 09:09 Influenza A (PCR) Negative (Negative) 04/30/24 06:46 Influenza Type B (PCR) Negative (Negative) 04/30/24 06:46 RSV (PCR) Negative (Negative) 04/30/24 06:46 SARS-CoV-2 (PCR) Negative (Negative) 04/30/24 06:46 Discharge Plan Discharge Patient Disposition: Home Clinical Impression: Fall, Head injury, Laceration of nose, Nasal fracture, Near syncope, Acute on chronic renal insufficiency, Dehydration Condition: Stable Prescriptions: No Action albuterol sulfate [ProAir HFA] 90 mcg/actuation HFA aerosol inhaler 2 puff inhalation Q6H PRN (Reason: shortness of breath or wheezing) Qty: 8.5 0RF nitroglycerin 0.4 mg tablet, sublingual See Rx Instructions .ROUTE .COMPLEX Qty: 25 2RF Dose Instruction: DISSOLVE ONE TABLET UNDER THE TONGUE EVERY 5 MINUTES NEEDED FOR CHEST PAIN. DO NOT EXCEED A TOTAL OF 3 DOSES IN 15 MINUTES Rx Instructions: DISSOLVE ONE TABLET UNDER THE TONGUE EVERY 5 MINUTES NEEDED FOR CHEST PAIN. DO NOT EXCEED A TOTAL OF 3 DOSES IN 15 MINUTES atorvastatin 80 mg tablet 80 mg PO BEDTIME Qty: 90 3RF furosemide 40 mg tablet 40 mg PO BID 90 Days Qty: 180 2RF ropinirole 2 mg tablet 2 mg PO BID 90 Days Qty: 180 2RF tramadol 50 mg tablet 50 mg PO BID PRN (Reason: pain) 30 Days Qty: 60 0RF amiodarone 200 mg tablet 200 mg PO BID Qty: 120 3RF hydralazine 25 mg tablet 25 mg PO BID Qty: 180 3RF aspirin 81 mg Tablet,Delayed Release (Dr/Ec) 81 mg PO QAM levothyroxine 75 mcg tablet 75 mcg PO DAILY Rx Instructions: TAKE 1 TABLET BY MOUTH ONCE DAILY tamsulosin 0.4 mg capsule 0.4 mg PO QPM Rx Instructions: TAKE 1 CAPSULE BY MOUTH ONCE DAILY AT BEDTIME amlodipine 10 mg tablet 10 mg PO DAILY Rx Instructions: TAKE 1 TABLET BY MOUTH ONCE DAILY telmisartan-hydrochlorothiazid 80-12.5 mg tablet 1 tab PO DAILY Rx Instructions: TAKE 1 TABLET BY MOUTH ONCE DAILY metoprolol tartrate 25 mg tablet 25 mg PO BID Xarelto 20 mg tablet 20 mg PO DAILY Rx Instructions: TAKE 1 TABLET BY MOUTH ONCE DAILY Discharge Orders: Discharge ED (Routine); Ordered 04/30/24 Ordered By: Corinna Carlos Referrals: Naman Momin MD [Physician] - 4-7 days (Please call for an appointment concerning your broken nose.) Elizabeth Xiao MD [Primary Care Provider] - Discharge Diet: As Directed Discharge Activity: Increase activity as tolerated Patient Instructions: Facial Laceration (ED), Opioid Safety, Pain Management Activity Restrictions/Additional Instructions: Hold your furosemide and telmisartan hydrochlorothiazide for the next few days. Do not miss your appointment with your doctor on Friday. If you develop worsening swelling in your legs then resume the Lasix. Keep the area clean and dry, wash twice per day with antibacterial soap and water. Return to your primary provider or the emergency room in 7 days for suture removal. Avoid any prolonged submersion in water. Avoid all [place] water, pond water, streams or other untreated water. Thank you for choosing [facility] for your healthcare needs today. Please realize this is an emergency room and that we are providing you with a medical screening exam and this may not be complete and all inclusive of all the testing and or work up that you may need to determine your ailment or severity of your illness. You have been screened and evaluated and felt safe for discharge. Health conditions do change or evolve sometimes and as such it is important that you follow up with your Primary Doctor to be re checked, 3-5 days is a general good time frame for follow up. You are always welcome to return to the ED for re assessment if your symptoms are worsening or you have new concerns Print Language: Andorran Coding Level of Care Code ED Functional Director for Sergio Vicente
--- NOTE | 2024-04-30 06:44 | CTR_ITS ---
PROCEDURE INFORMATION: Exam: CT Maxillofacial Without Contrast Exam date and time: 04/30/2024 6:55 AM Age: 73 years old Clinical indication: Injury or trauma; Fall; Blunt trauma (contusions or hematomas); Forehead and nose; Additional info: Trauamatic facial pain TECHNIQUE: Imaging protocol: Computed tomography of the face without contrast. Radiation optimization: All CT scans at this facility use at least one of these dose optimization techniques: automated exposure control; mA and/or kV adjustment per patient size (includes targeted exams where dose is matched to clinical indication); or iterative reconstruction. COMPARISON: CT head wo con* [id number] 04/30/2024 6:55 AM RADIATION DOSE METRICS: Total DLP (mGy-cm): 555.9 FINDINGS: Paranasal sinuses: There is mucosal thickening and some secretions in the sphenoid sinus. Other paranasal sinuses are clear.. Lucency seen in the anterior maxillary sinuses bilaterally are favored to be nutrient canals and not fracture Orbital cavities: The orbits and contents are intact. There is some calcification of the sclera bilaterally. Bones: There is a mildly depressed fracture of the right nasal bone of indeterminate age but could be acute related to the current trauma. There are no other facial fractures detected. Soft tissues: There is soft tissue swelling involving the anterior inferior frontal scalp extending into the right orbital lids in the superomedial aspect of the nose. There is abnormal soft tissue air within the medial aspect of the nose and there appears to be soft tissue disruption suggesting laceration here CT/CT facial bones wo con* [id number] IMPRESSION: 1. Soft tissue swelling involving the inferior right frontal scalp extending into the right orbital lids and into the nose. Abnormal soft tissue air and soft tissue disruption in the superomedial right side of the nose is thought to be consistent with a laceration 2. Orbits and contents are intact 3. Minimally depressed right nasal bone fracture which could be acute or chronic 4. No other facial fractures detected
--- NOTE | 2024-04-30 06:50 | ECG_ITS ---
[facility] Date: 2024-04-30 Pat Name: Lavon Boone Department: Room: Gender: Male Health Aid: : 1950 Requested By: Corinna Gonzalez Order Number: [id number] Aburto MD: Harsih Thompson M.D. Measurements Intervals [place] Rate: 71 P: 0 MA: 0 QRS: 43 QRSD: 109 T: 127 QT: 479 QTc: 522 Interpretive Statements ATRIAL FIBRILLATION ST DEVIATION AND MODERATE T-WAVE ABNORMALITY, CONSIDER ANTEROLATERAL ISCHEMIA [-0.1+ mV T-WAVE IN V3-V6] Compared to ECG 02/26/2023 10:45:36 Possible ischemia now present T-wave abnormality still present Electronically Signed On 04-30-2024 19:04:22 CDT by Harish Thompson M.D. [email or web address] [id number]
--- NOTE | 2024-04-30 06:50 | XR_ITS ---
WS: [id number] Portable AP upright chest, 04/30/2024 Clinical Data: Shortness of breath Comparison: Portable chest, 02/11/2023 Findings: No nodules, masses or effusions are seen. The heart is normal. The pulmonary vascularity is not increased. No pneumonia or pneumothorax is seen. There is a 2-lead cardiac pacemaker in position with the generator overlying the left lateral chest. The aortic arch and descending thoracic aorta show calcification in tortuosity. XR/XR chest 1V portable [id number] Impression: Atherosclerosis.
[2024-04-30 06:53] LABS: Basophils # 0.1 10^3/uL (0.0-0.1); Basophils % 0.8 %; Eosinophils # 0.3 10^3/uL (0.0-0.8); Eosinophils % 3.4 %; Lymphocytes # 1.4 10^3/uL (0.8-4.8); Lymphocytes % 17.3 %; Mean Corpuscular HGB Conc 34.5 g/dL (30-55); Mean Corpuscular Hemoglobin 32.9 pg (27-33); Mean Corpuscular Volume 95.2 fl (82-101); Mean Platelet Volume 10.1 fL (7.4-10.4); Monocytes # 1.1 10^3/uL (0.2-0.9); Monocytes % 13.2 %; Neutrophils # 5.15 10^3/uL (1.8-7.7); Neutrophils % 64.9 %; Nucleated Red Blood Cells % 0 %; Platelet Count 140 10^3/cmm (157-399); Red Blood Count 4.62 10^6/uL (3.85-5.65); Red Cell Distribution Width 12.9 % (12.1-15.1); White Blood Count 7.93 10^3/uL (3.29-11.43)
[2024-04-30 07:10] LABS: Lactic Sepsis W/Reflex 1.9 mmol/L (0.5-2.2)
[2024-04-30 07:11] LABS: Alanine Aminotransferase 30 U/L (0-41); Albumin Level 3.9 g/dL (3.5-5.2); Alkaline Phosphatase 84 U/L (40-130); Anion Gap 16.4 (5-19); Aspartate Amino Transferase 24 U/L (0-40); Blood Urea Nitrogen 45 mg/dL (8-23); Calcium 8.5 mg/dL (8.5-10.5); Carbon Dioxide 23 mmol/L (22-29); Chloride 101 mmol/L (98-107); Creatinine Clr Calc Pharmacy 39.3147; Globulin 2.4 g/dL (1.3-4.6); Glucose 148 mg/dL (65-115); Osmolality Calculated 298 mOsm/kg (285-295); Potassium 3.4 mmol/L (3.5-5.1); Sodium 137 mmol/L (136-145); Total Bilirubin 1.2 mg/dL (0.15-1.2); Total Protein 6.3 g/dL (6.6-8.7)
[2024-04-30 07:12] LABS: Troponin(5th) Baseline 31 ng/L (0-15)
[2024-04-30 07:24] LABS: NT Pro B Type Natriuretic Pept 313 pg/mL (0-125)
[2024-04-30 07:39] LABS: Influenza A NEGATIVE (Negative); Influenza B NEGATIVE (Negative); Respiratory Syncytial Virus Ce NEGATIVE (Negative); SARS-CoV-2 PCR NEGATIVE (Negative)
[2024-04-30 08:00] VITALS: BP 92/65; PULSE 70; O2SAT 93
[2024-04-30] MEDS: sodium chloride 0.9% 500 ML 999 ML IV (08:15)
[2024-04-30 08:39] VITALS: BP 81/61; PULSE 75; O2SAT 97
--- NOTE | 2024-04-30 08:40 | ECG_ITS ---
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 Measurements Intervals [place] Rate: 74 P: 0 AK: 0 QRS: 59 QRSD: 107 T: 128 QT: 478 QTc: 533 Interpretive Statements ATRIAL FIBRILLATION ST DEVIATION AND MODERATE T-WAVE ABNORMALITY, CONSIDER ANTEROLATERAL ISCHEMIA [-0.1+ mV T-WAVE IN V3-V6] Compared to ECG 04/30/2024 06:50:42 No significant changes Electronically Signed On 04-30-2024 19:18:58 CDT by Harish Thompson M.D. [id number]
[2024-04-30] MEDS: tetanus-dipt-pertussis 0.5 mL SDV IM (09:02)
[2024-04-30 09:09] LABS: Troponin 5 2HR 28.95 ng/L (0-15)
[2024-04-30 09:10] LABS: Troponin 5 2HR Delta -2.05 ABS# (0-10)
[2024-04-30 09:25] LABS: Bilirubin Urine Negative (Negative); Blood Urine Negative (Negative); Glucose Urine UA Negative (Normal); Ketones Urine Negative (Negative); Leukocyte Esterase Urine Negative (Negative); Nitrate Urine Negative (Negative); Protein Urine Negative (Negative); Specific Gravity, Urine 1.013 (1.005-1.030); Urine Appearance Clear (CLEAR); Urine Color Yellow (Yellow); pH Urine 5.5 (5-7)
[2024-04-30 09:30] LABS: Bacteria Urine None Seen /hpf; Hyaline Casts Urine 16.93 /lpf; RBC Urine 0-2 /hpf (0-2); Squamous Epithelial Cell Urine 0-5 /hpf (0-5); WBC Urine 0-5 /hpf (0-5)
[2024-04-30 10:29] VITALS: BP 96/60; PULSE 70; RESP 16; O2SAT 93
== END 2024-04-30 10:30 | disposition home or self-care (01) ==
PROVIDERS: Emergency Provider Emergency Medicine; PCP Family Medicine
DX: S09.90XA Unspecified injury of head, initial encounter (principal); S02.2XXA Fracture of nasal bones, initial encounter for closed fracture; R55 Syncope and collapse; N28.9 Disorder of kidney and ureter, unspecified; E86.0 Dehydration; Z79.82 Long term (current) use of aspirin; Z11.52 Encounter for screening for COVID-19; E78.5 Hyperlipidemia, unspecified; I11.0 Hypertensive heart disease with heart failure; I50.9 Heart failure, unspecified; W19.XXXA Unspecified fall, initial encounter; Z23 Encounter for immunization
CPT/HCPCS: 36415; 70450; 70486; 71045; 72125; 80053; 81001; 83605; 83880; 84484; 85025; 87040; 87637; 90471; 90715; 93005; 99285; J7040

== ENCOUNTER 2024-05-24 08:57 | Outpatient (CLI) | payer MEDICARE, SELFPAY ==
--- NOTE | 2024-05-24 | ECG_ITS ---
[facility] Test Date: 2024-05-24 Pat Name: Lavon Boone Department: Room: Gender: Male Contract Loader: : 1950 Requested By: Harish Thompson Order Number: [id number] Criselda MD: Harish Thompson M.D. Interpretive Statements LEXISCAN: Procedure: At the baseline, the blood pressure was 127/97 mmHg with a heart rate of 96 bpm. The electrocardiogram showed atrial fibrillation, normal axis with non-specific ST T wave changes. The Lexiscan was infused over a period of 20 seconds. A total of 0.4 mg of Lexiscan was infused. The stress phase was continued for a total of 5 minutes. Heart rate was at the end of stress phase was 106 bpm and a blood pressure of 126/97 mmHg. The EKG at the peak infusion revealed normal sinus rhythm with no significant ST-T wave changes. Sestamibi was injected 20 seconds after the Lexiscan infusion. Blood pressure at the end of recovery phase was 131/86 mmHg with a heart rate of 105 bpm. Conclusion: 1. Normal EKG response to Lexiscan infusion 2. No Lexiscan induced chest pain or cardiac arrhythmia. 3. Normal blood pressure and heart rate response. 4. Sestamibi/sestamibi perfusion scan pending; see separate report. Electronically Signed On 06-05-2024 21:04:40 CDT by Harish Thompson M.D. [email or web address] [id number]
[2024-05-24 09:01] VITALS: BMI 38.0
--- NOTE | 2024-05-24 09:02 | NMCV_ITS ---
NM raymundo perf SPECT r/s* [id number] Lavon Boone Age: 73 Gender: M : 1950 Exam Date: 05/24/2024 10:17 Ordering Phys: Harish Thompson M.D ([email or web address]) Technologist: PREMA Jamil Exam Location: [facility] Indications: cp STRESS TEST Please see separate stress test report in [facility] for full findings IMAGE PROTOCOL Rest/Stress 1 Lexiscan Day Radiopharmaceutical Dose (mCi) Administration Site Administered by Rest: Tc-99m 10.6 IV PREMA Jamil Sestamibi Stress:Tc-99m 32.3 IV PREMA Jamil Sestamibi Rest: 24-May-2024 60 Discovery 630 Stress: 24-May-2024 30 Discovery 630 0.4mg Lexiscan. Supine position only as patient was unable to lay prone. SPECT RESULTS Technical Quality: Good Raw Data Analysis: Normal Image Corrections: No attenuation or motion correction applied Summed Stress Score: 0 Summed Rest Score: 0 Summed Difference Score: 0 PERFUSION FINDINGS Uniform alcohol tracer uptake with no significant perfusion abnormalities FUNCTIONAL RESULTS (calculated via Gated SPECT) Stress Image LV EF (%): 47 Stress EDV (mL):121 TID: 1.04 Stress ESV (mL):64 FUNCTIONAL FINDINGS: LV wall motion analysis revealing mild diffuse hypokinesia of the left ventricle IMPRESSIONS 1. Myocardial perfusion imaging revealing uniform Miochol tracer uptake within no Perfusion normalities 2. Diminished left-ventricular ejection fraction of 47%. 3. LV wall motion analysis revealing mild diffuse hypokinesia of the left ventricle 4. Mildly dilated LV cavity with an end-systolic volume of [address] Monse Huerta MD FACC (Electronically Signed) Final Date: 24 May 2024 13:46 S
[2024-05-24] MEDS: regadenoson 0.4 Mg/5 ml Syringe IVP (10:42)
[2024-05-24 10:57] VITALS: BP 131/86; PULSE 105
== END 2024-05-24 08:58 | disposition home or self-care (01) ==
LOC: CDL 08:58
PROVIDERS: PCP Family Medicine; Visit Provider Internal Medicine
DX: R07.9 Chest pain, unspecified (principal)
CPT/HCPCS: 36415; 78452; 93017; 93306; 96374; A9500; J2785

== ENCOUNTER → 2024-09-08 14:11 | Outpatient (BNVA) | payer MEDICARE, SELFPAY | PROVIDERS: PCP Family Medicine; Visit Provider Internal Medicine | DX: I48.91 Unspecified atrial fibrillation (principal); Z98.890 Other specified postprocedural states; Z79.01 Long term (current) use of anticoagulants; Z79.82 Long term (current) use of aspirin | CPT/HCPCS: 99213 ==

== ENCOUNTER → 2024-10-11 09:40 | Outpatient (BNVA) | payer MEDICARE, SELFPAY | PROVIDERS: PCP Family Medicine; Visit Provider Family Medicine | DX: E03.9 Hypothyroidism, unspecified (principal); Z12.5 Encounter for screening for malignant neoplasm of prostate; E83.110 Hereditary hemochromatosis; N40.1 Benign prostatic hyperplasia with lower urinary tract symptoms; E78.5 Hyperlipidemia, unspecified; N18.4 Chronic kidney disease, stage 4 (severe); R73.9 Hyperglycemia, unspecified; Z13.1 Encounter for screening for diabetes mellitus | CPT/HCPCS: 80048; 80061; 83036; 83540; 84443; 85025; G0103 ==